=== PATIENT | male | born 1940 | race Caucasian/White ===

== ENCOUNTER → 2024-09-04 20:22 | Outpatient (REF) | payer OTHER, SELFPAY | LOC: MRI 20:22 | PROVIDERS: ATTENDING PHYSICIAN Nurse Practitioner Adult Health; FAMILY PHYSICIAN Internal Medicine | DX: R20.0 Anesthesia of skin (principal); R29.6 Repeated falls; R41.3 Other amnesia; R25.1 Tremor, unspecified; R53.1 Weakness; R90.82 White matter disease, unspecified | CPT/HCPCS: 70553; A9575 ==

== ENCOUNTER 2024-10-02 09:03 | Inpatient (IN) | payer OTHER, SELFPAY ==
[2024-10-01 22:18] VITALS: BP 114/82
[2024-10-01 22:27] VITALS: BP 153/104
--- NOTE | 2024-10-01 22:48 | ED.GENMED ---
History of Present Illness
General
Chief Complaint: Fever
Source: patient and ambulance crew
Time Seen by Provider: 10/01/24 22:23
Nursing documentation reviewed up to this point in time: agreed with
History of Present Illness
History of Present Illness:
84-year-old male brought in by EMS from home after sustaining multiple falls over the last few days. He states that progressively getting weaker and weaker over the last month and falling almost every day.
Past History
Past History
ED Past Medical History: CAD, Cancer (Kidney), CVA, HTN, Hypercholesterolemia and Other (Carotid stenosis, emyphysema)
ED Past Surgical History: Cardiac (Stents X1) and Urological (right nephrectomy)
Social History
Tobacco: Smoker
Alcohol: Occasional
Drug: None
Personal:
Living: with family
Phy Exam
General Physical Exam
General Presentation: mild distress
General age: appears older than age
General Skin: warm and dry
General Habitus: cachetic, elderly and frail
General Mental: alert
General Hydration: dry mucous membranes
ENT Exam
ENT Exam: neck supple and swallowing well
Eye Exam
Eye Exam: PERRL, cornea clear and conjunctiva normal
Cardiovascular Exam
Cardiovascular Exam: no edema, irregularly irregular and systolic murmur
Pulmonary Exam
Pulmonary Exam: generalized wheezing
Cough: coarse cough
Breath Sounds: Wheeze: generalized
Gastrointestinal Exam
Gastrointestinal Exam: normal bowel sounds, non tender, soft, no organomegaly, no pulsatile mass and non distended
Neurological Exam
Neurological Exam: alert, oriented x3, no motor deficits and speech normal
Musculoskeletal Exam
Musculoskeletal Exam: neuro vasc intact and other (Full range of motion to the right hip with minimal tenderness to palpation on compression.)
Skin Exam
Skin Exam: normal color, warm/dry, no rash and no petechia
Psychiatric Exam
Psychiatric Exam: normal mood/affect
Course
Orders/Labs/Results
Orders:
Orders
10/01/24 23:09
Acetaminophen [Tylenol] 650 mg PO NOW STA
10/01/24 23:11
Complete Blood Count/With Diff Urgent
Comprehensive Metabolic Panel Urgent
Lactic Acid Urgent
Lipase Urgent
NT-proBNP Urgent
PTT Urgent
Procalcitonin Urgent
PCT Algorithmm Indication: Sepsis
Prothrombin Time Urgent
Troponin I Urgent
Blood Culture Q30M
MILA Source: Blood/Venous
Specimen Description:
Blood Culture Q30M
MILA Source: Blood/Venous
Specimen Description:
10/01/24 23:55
Urinalysis Reflex To Culture Urgent
Date Specimen was Collected: 10/01/24
Time Specimen was Collected: 23:18
Urine Microscopic Reflex Cult Urgent
Urine Culture Urgent
MILA Source: U
Specimen Description:
Date Specimen was Collected: 10/01/24
Time Specimen was Collected: 23:18
10/02/24 00:00
CR Chest Single View Urgent
Reason For Exam: fever
10/02/24 00:30
CT Head W/o Iv Contrast Urgent
Reason For Exam: fall on anticoagulation
10/02/24 00:35
CT Abd/pelvis W Iv Cont Urgent
Reason For Exam: right flank and hip pain
CefTRIAXone [Rocephin] 1,000 mg IV NOW STA
Abnormal Lab Results
10/01/24 10/01/24
23:11 23:55
WBC 4.3 L 10^3/uL
(4.8-10.8)
RBC 4.27 L 10^6/uL
(4.70-6.10)
Hgb 11.8 L g/dL
(13.0-18.0)
Hct 36.1 L %
(39.0-52.0)
MCHC 32.7 L g/dL
(33.0-37.0)
Absolute Lymphs (auto) 0.3 L 10^3/uL
(1.2-3.4)
Absolute Monos (auto) 0.7 H 10^3/uL
(0.1-0.6)
Neutrophils % 76.5 H %
(42.2-75.2)
Lymphocytes % 6.7 L %
(20.5-51.1)
Monocytes % 15.0 H %
(1.7-9.3)
APTT 35.2 H Sec
(23.4-35.0)
Sodium 133 L mmol/L
(135-145)
Glucose 113 H mg/dl
(70-99)
Calcium 8.3 L mg/dl
(8.4-10.2)
AST 15 L U/L
(17-59)
Total Protein 5.9 L g/dl
(6.3-8.2)
Ur Occult Blood Reflex 1+ A
(Negative)
Urine RBC 3-6 A /HPF
(0-2)
Urine Bacteria (Reflex) Moderate A
(Negative)
Urine Albumin (Reflex) 3+ A
(Neg - Trace)
10/01/24 23:11
10/01/24 23:11
Vital Signs
Initial and Last Documented VS:
Initial Vital Signs
Temp Pulse Resp BP Pulse Ox
100.4 F H 88 24 114/82 96
10/01/24 22:18 10/01/24 22:18 10/01/24 22:18 10/01/24 22:18 10/01/24 22:18
Last Documented Vital Signs
Temp Pulse Resp BP Pulse Ox
99.2 F 82 21 135/72 95
10/02/24 01:43 10/02/24 02:45 10/02/24 02:45 10/02/24 00:00 10/01/24 23:30
*Radiology
Radiology exam reviewed: radiology read reviewed
*Pulse Oximetry
Patient hypoxic: no
*Umbrella Finisher Interpretation
Interpretation: abnormal
Heart Rate: 86
Rhythm: a-fib
*Critical Care Note
Total Time (30-74mins, 75-104mins- exclusive of procedures): Not Applicable
Data Reviewed
Review of Other/Old Records Reveals: Labs, Records, Progress Notes and Discharge Summary
Source: patient
Update Note
Update Note:
CT HEAD
IMPRESSION:
No acute hemorrhage, herniation, or hydrocephalus. Left parietal encephalomalacia. Moderate periventricular hypodensities, likely the sequela of small vessel ischemic disease.
No calvarial fracture.
The visualized paranasal sinuses and mastoid air cells are clear.
CT ABDOMEN/PELVIS WITH CONTRAST
IMPRESSION:
1. No acute abnormality within the abdomen or pelvis.
2. No bowel obstruction. Normal gallbladder and appendix
3. Mildly displaced left lateral 9th rib fracture.
Incidentals:
-Moderate stool burden
- No obstructive uropathy. Absent right kidney. Apparent enhancement within the proximal ureter, may be vascular, but recommend correlation with urinalysis as urothelial malignancy could appear similarly.
- No hepatic or pancreatic mass.
- No abdominal aortic aneurysm. Narrowing of the proximal celiac artery with poststenotic dilation. Narrowing of the proximal SMA.
- No acute abnormality within the visualized lungs.
- No acute abnormality within the visualized soft tissues.
ED Attending Note
-
Portions of this chart may have been created with voice recognition software.� Occasional wrong word or��sound alike� substitutions may have occurred due to the inherent limitations of voice recognition software.
Discharge Plan
Departure
Patient Disposition: Admit
Date of Disposition: 10/02/24
Time of Disposition: 00:59
Admit to: Telemetry
Presentation/result/management discussed w/ accepting MD/DO: Hospitalist
Discharge Problem:
Frequent falls, Acute UTI, Weakness, Acute flank pain, Fracture of rib
Prescriptions:
No Action
aspirin 81 MG tablet,delayed release (DR/EC)
81 mg PO HS
sildenafil [Viagra] 100 MG tablet
100 mg PO PRN PRN (Reason: sexual activity)
simvastatin 20 MG tablet
20 mg PO HS
cilostazol 100 MG tablet
100 mg PO BID@0000,1200
metoprolol succinate 25 MG tablet extended release 24 hr
25 mg PO HS
Pepcid Complete 1 EACH tablet,chewable
1 ea PO HS
Referrals:
Denton Marcelino MD [Family Provider] -
Interventions
Interventions:
*Risk Screen - Suicide Last Done: 10/01/24 22:18
*General Assessment Last Done: 10/01/24 22:18
*Neglect/Abuse Screening Last Done: 10/01/24 22:18
ED- Fall Risk Assessment Last Done: 10/01/24 23:09
*ED COVID-19 Vaccine History Last Done: 10/01/24 23:08
ED-Musculoskeletal Assessment Last Done: 10/02/24 01:43
ED- Neurological Assessment Last Done: 10/01/24 23:09
ED-Skin Assessment Last Done: 10/02/24 01:43
Discharge Date and Time
Print Language: TAJIK
[2024-10-01 23:07] VITALS: BMI 15.8
[2024-10-01 23:20] LABS: % Basophils 0.9 % (0-2); % Eosinophils 0.7 % (0-6); % Immature Granulocytes 0.2 % (0-0.5); % Lymphocytes 6.7 % (20.5-51.1); % Neutrophils 76.5 % (42.2-75.2); Absolute Lymphocytes 0.3 10^3/uL (1.2-3.4); Absolute Monocytes 0.7 10^3/uL (0.1-0.6); Absolute Neutrophils 3.3 10^3/uL (1.4-6.5); Hematocrit 36.1 % (39.0-52.0); Hemoglobin 11.8 g/dL (13.0-18.0); Mean Corp Hgb Conc. 32.7 g/dL (33.0-37.0); Mean Corpuscular Hgb 27.6 pg (27.0-31.0); Mean Corpuscular Volume 84.5 fL (80.0-94.0); Mean Platelet Volume 9.3 fL (7.4-10.4); Nucleated Red Blood Cells % 0 % (-); Platelet Count 153 10^3/uL (130-400); Red Blood Cell Count 4.27 10^6/uL (4.70-6.10); Red Cell Dist. Width 14.3 % (11.5-14.5); White Blood Cell Count 4.3 10^3/uL (4.8-10.8)
[2024-10-01] MEDS: TYLENOL 650 MG PO (23:49)
[2024-10-01 23:52] LABS: Lactic Acid 1.3 mmol/L (0.7-2.0)
[2024-10-01 23:53] LABS: ALT (SGPT) < 10 U/L (0-50); AST (SGOT) 15 U/L (17-59); Albumin 3.5 g/dl (3.5-5.0); Alkaline Phosphatase 106 U/L (38-126); Blood Urea Nitrogen 11 mg/dl (9-20); Calcium 8.3 mg/dl (8.4-10.2); Carbon Dioxide 26 mmol/L (22-30); Chloride 100 mmol/L (98-107); Glucose 113 mg/dl (70-99); Lipase 93 U/L (23-300); Potassium 4.2 mmol/L (3.5-5.1); Sodium 133 mmol/L (135-145); Total Protein 5.9 g/dl (6.3-8.2)
[2024-10-02] VITALS (10 sets, daily range): BP systolic 103–166; BP diastolic 60–107; BMI 15.8; BMI 15.2
[2024-10-02 00:02] LABS: INR 1.04; NT-proBNP 2620 pg/ml; PT 14.1 Sec (11.4-14.6); Troponin I < 0.012 ng/ml
[2024-10-02 00:03] LABS: APTT 35.2 Sec (23.4-35.0); Estimated Creatinine Clearance 53 ml/min; eGFR > 60.00
[2024-10-02 00:04] LABS: Urine Albumin 3+ (Neg - Trace); Urine Bilirubin Negative (Negative); Urine Character Clear (Clear); Urine Color Yellow; Urine Glucose Negative (Negative); Urine Ketone Negative (Negative); Urine Leukocyte Negative (Negative); Urine Nitrite Negative (Negative); Urine Occult Blood 1+ (Negative); Urine Specific Gravity 1.025 (<1.030); Urine Urobilinogen Negative (Neg - 1+)
[2024-10-02 00:22] LABS: Urine Mucus Few
[2024-10-02 00:24] LABS: Urine Bacteria Moderate (Negative)
[2024-10-02 00:27] LABS: Procalcitonin < 0.05 ng/ml (0.0-0.25)
[2024-10-02] MEDS: ROCEPHIN 1000 MG IV (01:39)
--- NOTE | 2024-10-02 04:11 | HPS.HSE ---
Family Physician
-
Family Physician: Tejinder Mareclino
Chief Complaint
-
Weakness and falls
History of Present Illness
This is a 84-year-old with past medical history significant for CAD status post stents, history of proximal atrial fibrillation in the past, history of CVA, hypertension, peripheral vascular disease presenting to the emergency department from home
with falls.
Patient is a fairly poor historian. He did endorse having falls for about a month. He states that he has been weak for the last 1 week. He states his had about 4 falls in the last 1 week. He says he is just unable to ambulate due to weakness in
his legs and he has to crawl to get around. He endorsed a cough initially which he says has been going on for 1 week upon further questioning he states it has been chronic. He denies fevers or chills at home. He has no known sick contacts. He
denies any urinary symptoms including dysuria, frequency or urgency no hematuria or incontinence. He denies lightheadedness or dizziness. He denies chest pain palpitations shortness of breath or dyspnea on exertion. Patient denies any changes in
appetite and states he has been tolerating his p.o. normally. He denies any acute changes in medications.
In the emergency department he had a Tmax of 100.4, was satting 96% on room air. Blood pressure was 135/32 with a pulse of 73. CBC was unremarkable. Electrolytes BUN/creatinine were also unremarkable. He had a chest x-ray which shows a possible
left upper lobe infiltrate. CT of the abdomen and pelvis was mostly negative showing a mildly displaced lateral wall ninth rib fracture. Procalcitonin test was negative. UA was equivocal with bacteria but also squamous cells and negative
leukocyte esterase and negative nitrite.
Medical History
Past Medical History
Past Medical History: Reports Arrhythmia (Proximal atrial fibrillation), CAD, Cancer (kidney Ca s/p R nephrectomy), CVA, HTN, Hypercholesterolemia and Other (Carotid artery stenosis, peripheral vascular disease)
Past Surgical History: Reports Urological (Right nephrectomy)
Social History
Tobacco: Smoker
Alcohol: None
Drug: None
Personal:
Living: With Family
Employment: Retired
Family History
Family History: Not pertinent
Allergies / Home Medications
Allergies reflects when Allergies were last updated in [facility].
Home Medications with original date entered in [facility] [facility]
Allergy/Medication List:
Allergies
Allergy/AdvReac Type Severity Reaction Status Date / Time
No Known Allergies Allergy Verified 10/01/24 22:18
Home Medications
aspirin 81 mg tablet,delayed release 81 mg PO HS
simvastatin 20 mg tablet 20 mg PO HS
cilostazol 100 mg tablet 100 mg PO BID@0000,1200
metoprolol succinate 50 mg tablet,extended release 24 hr 50 mg PO BID
Review of Systems
-
History Source: Patient
Constitutional: Reports No Symptoms
EENT: Reports No Symptoms
Respiratory: Reports Cough
Cardiac: Reports No Symptoms
Abdomen/GI: Reports No Symptoms
: Reports No Symptoms
Musculoskeletal: Reports No Symptoms
Skin: Reports No Symptoms
Neurological: Reports Weakness
Endocrine: Reports No Symptoms
Hematologic/Lymphatic: Reports No Symptoms
Psych: Reports No Symptoms
Physical Exam
Vital Signs
Vital Signs
Temp Pulse Resp BP Pulse Ox
99.2 F 73 19 135/72 95
10/02/24 01:43 10/02/24 03:47 10/02/24 03:00 10/02/24 00:00 10/01/24 23:30
Physical Exam
General: Well Developed, No Apparent Distress and Comfortable
HEENT: NormoCephalic, Anicteric, Atraumatic and PERRLA
Respiratory: Clear and Decreased Breath Sounds
Cardiac: S1/S2 and Regular Rhythm
Breast: Deferred by me
GI: Soft, Non Tender, Non Distended and Normal Bowel Sounds
Rectal: Deferred by Provider
Genito-urinary: Deferred by me
Musculoskeletal: No Clubbing, No Cyanosis and No Edema
Skin: Warm
Neuro: Alert, Oriented (oriented to person, but did not recall place, year or month) and Nonfocal/grossly intact
Psych: Calm
Laboratory Results
-
10/01/24 23:11
10/01/24 23:11
Laboratory Results
PT 14.1 Sec (11.4-14.6) 10/01/24 23:11
INR 1.04 10/01/24 23:11
APTT 35.2 Sec (23.4-35.0) H 10/01/24 23:11
Lactic Acid 1.3 mmol/L (0.7-2.0) 10/01/24 23:11
Total Bilirubin 1.0 mg/dl (0.2-1.3) 10/01/24 23:11
AST 15 U/L (17-59) L 10/01/24 23:11
ALT < 10 U/L (0-50) 10/01/24 23:11
Alkaline Phosphatase 106 U/L (38-126) 10/01/24 23:11
Troponin I < 0.012 ng/ml 10/01/24 23:11
Troponin I Cancelled 10/01/24 23:11
Lipase 93 U/L (23-300) 10/01/24 23:11
Data Reviewed
-
Diagnostic Radiology: Image Personally Visualized and interpreted
CT Scan: Report Reviewed by me
Lab Data: Labs Reviewed by me
Old Records: Reviewed
Impression/Plan
-
IMPRESSION:
84 y.o here with generalized weakness after 1 week of increased falls at home and overall having had falls for about a month. Testing in ED is unrevealing of etiology. Possible PNA with cough (though chronic), fever and a upper lobe opacity
however procal negative. U/A is equivocal and not c/w acute cystitis. Labs do not show significant dehydration. Non-focal neuro exam and negative head CT. CT a/p showed a r 9th rib mildly displaced rib fracture and some narrowed celiac and sma
vessels.
PLAN:
1. PNA - Suspected pneumonia based on fever and xray
- admit to med/surg
- ceftriaxone/doxycycline for now
- blood and urine cultures sent
- CT chest w/o contrast to eval pna further
- no wheezing or increased wob
- prn nebs given likely COPD and smoking history
2. UTI - Unlikely
- urine cultures sent
- abx as above
3. Weakness
- check influenza/covid
- check cpk
4. Falls and rib fracture - mildly displaced left 9th rib fracture. Unclear acuity.
- supportive measures and pain control
- CT chest as above
- orthostatics
- IV fluids
- PT eval
DVT PPX - lovenox sq
Code status - full code
[2024-10-02] MEDS: LR 1000 IV ×2 (05:44→20:17)
[2024-10-02 06:00] LABS: Hematocrit 35.7 % (39.0-52.0); Hemoglobin 11.6 g/dL (13.0-18.0); Mean Corp Hgb Conc. 32.5 g/dL (33.0-37.0); Mean Corpuscular Hgb 27.5 pg (27.0-31.0); Mean Corpuscular Volume 84.6 fL (80.0-94.0); Mean Platelet Volume 9.7 fL (7.4-10.4); Platelet Count 158 10^3/uL (130-400); Red Blood Cell Count 4.22 10^6/uL (4.70-6.10); Red Cell Dist. Width 14.2 % (11.5-14.5); White Blood Cell Count 3.8 10^3/uL (4.8-10.8)
[2024-10-02 06:21] LABS: COVID-19 Antigen Positive (Negative)
[2024-10-02 06:22] LABS: Blood Urea Nitrogen 12 mg/dl (9-20); Calcium 8.1 mg/dl (8.4-10.2); Carbon Dioxide 27 mmol/L (22-30); Chloride 101 mmol/L (98-107); Creatine Phosphokinase 139 U/L (55-170); Estimated Creatinine Clearance 47 ml/min; Glucose 98 mg/dl (70-99); Potassium 4.1 mmol/L (3.5-5.1); Sodium 135 mmol/L (135-145); eGFR > 60.00
[2024-10-02] MEDS: DUONEB 3 ML INH ×3 (08:23→19:55)
[2024-10-02] MEDS: MIRALAX PO (09:07)
[2024-10-02] MEDS: SENOKOT-S PO ×2 (09:32→17:30)
[2024-10-02] MEDS: VIBRAMYCIN 100 MG PO (09:32)
--- NOTE | 2024-10-02 11:17 | EDRN ---
Pt agitated, verbally aggressive w staff stating 'This place is a shelter, I want out now!'. Pt trying to get OOB, taking cardiac leads off and pulling at IV. Pt will not keep his arm straight to allow IV fluids to be administered, pt refusing new IV
placement for IV fluids. Junito Omalley at bedside, states okay to hold IVF. Pt wants medication to make him sleep, pt reoriented to the situation. Pts called and I spoke w her regarding pts care and condition, pts states at times he gets
like this. Pts spoke w pt over the phone. Pt now calm.
--- NOTE | 2024-10-02 13:58 | W.PN.UPDATE ---
Update Note
Progress Note Update
Seen and examined independent of overnight physician
Patient was agitated earlier as he was tired from lack of sleep overnight
States of intermittent coughing. No productive cough.
States of weakness
States of heavy history of smoking
General: disshelved, chronically ill appearing
HEENT: NormoCephalic, Anicteric, Atraumatic and PERRLA
Respiratory: Decreased Breath Sounds
Cardiac: S1/S2 and Regular Rhythm
Breast: Deferred by me
GI: Soft, Non Tender, Non Distended and Normal Bowel Sounds
Rectal: Deferred by Provider
Genito-urinary: Deferred by me
Musculoskeletal: No Clubbing, No Cyanosis and No Edema
Skin: Warm
Neuro: Alert, Oriented (oriented to person, but did not recall place, year or month) and Nonfocal/grossly intact
Psych: Calm after prolonged discussion
IMPRESSION:
84 y.o here with generalized weakness after 1 week of increased falls at home and overall having had falls for about a month. Testing in ED is unrevealing of etiology. Possible PNA with cough (though chronic), fever and a upper lobe opacity
however procal negative. U/A is equivocal and not c/w acute cystitis. Labs do not show significant dehydration. Non-focal neuro exam and negative head CT. CT a/p showed a r 9th rib mildly displaced rib fracture and some narrowed celiac and sma
vessels.
PLAN:
Acute COVID-19 infection
-Pro-Antonio noted. Discontinue antibiotics.
-Symptomatic management. Not requiring oxygen no need for steroids
-Unclear timeline and does hold off on Paxlovid
-Follow-up on the urine and blood culture data
UTI - Unlikely
- urine cultures sent
-Follow-up on the culture data.
Weakness secondary to COVID-19 infection
-IV fluids for now. PT OT.
History of severe tobacco abuse
Left upper lobe lung lesion
-Pulmonary evaluation
Toxic metabolic encephalopathy likely delirium versus underlying cognitive impairment
-Patient calm down. Risperdal as needed
-Melatonin at bedtime.
Falls and rib fracture - mildly displaced left 9th rib fracture. Unclear acuity.
- supportive measures and pain control
- CT chest as above
- orthostatics
- IV fluids
- PT eval
Atrial fibrillation unknown chronicity
-Looking to record seems refused anticoagulation in the past
-Not on any rate control agents
Peripheral vascular disease
History of stroke
Left carotid stenosis
Coronary artery disease
DVT PPX - lovenox sq
Code status - full code
Awaiting home medication reconciliation
--- NOTE | 2024-10-02 15:58 | CON.PUL ---
Consultation
Consultation Request
Date/Time Consultation Requested: 10/02/2024
Date/Time Consultation Performed: 10/02/2024
Requesting Provider: Dr. Omalley
Performing Provider: Dr. Ángel Wolf
Reason for Consultation: lung mass
Medical History
-
History of Present Illness:
84-year-old man with past medical history significant for coronary artery disease, prior stents, paroxysmal atrial fibrillation, history of CVA, hypertension, peripheral vascular disease presented to the emergency room after falling.
Patient is a poor historian.
Apparently has been falling at home several times for the last month.
Has been more weak over the last week.
Has not been able to ambulate due to weakness in his legs and he has to crawl around.
Reports history of chronic coughing.
Denies fevers, chills or night sweats. Denies hemoptysis.
He was found to have low-grade fever in the emergency room. Not hypoxemic. 96% on room air.
Found to have COVID-19 infection.
-
CT abdomen pelvis negative.
Chest x-ray with possible left upper lobe infiltrate. Negative procalcitonin.
There is evidence for mildly displaced lateral wall ninth rib fracture.
CT chest demonstrated left upper lobe lung mass. I was consulted for evaluation of this.
Past Medical History
Past Medical History: Other (See assessment and plan)
Social History
Tobacco: Smoker
Alcohol: None
Drug: None
Personal:
Living: With Family
Employment: Retired
Family History
Family History: Reviewed & Not Pertinent
Allergies / Home Medications
Allergies
Allergy/AdvReac Type Severity Reaction Status Date / Time
No Known Allergies Allergy Verified 10/01/24 22:18
Home Medications
�Medication �Instructions �Recorded �Confirmed �Last Taken �Type
aspirin 81 mg tablet,delayed 81 mg PO HS 09/30/12 10/02/24 05/02/22 History
release
sildenafil 100 mg tablet (Viagra) 100 mg PO PRN PRN sexual activity 05/02/15 10/02/24 2 Weeks Ago History
~07/29/19
simvastatin 20 mg tablet 20 mg PO HS 05/02/15 10/02/24 05/02/22 History
cilostazol 100 mg tablet 100 mg PO BID 08/12/19 10/02/24 05/02/22 History
famotidine 20 mg tablet (Pepcid) 20 mg PO DAILY 10/02/24 10/02/24 Unknown History
metoprolol succinate 50 mg 50 mg PO BID 10/02/24 10/02/24 Unknown History
tablet,extended release 24 hr
(Toprol XL)
Review of Systems
-
History Source: Patient
All other systems: Negative unless noted
Vitals / Labs / Diagnostic Testing
Vital Signs
Temp Pulse Resp BP Pulse Ox
99.3 F 109 22 150/84 97
10/02/24 14:55 10/02/24 12:45 10/02/24 12:45 10/02/24 12:00 10/02/24 10:50
Lab Data
10/02/24 05:26
10/02/24 05:26
Laboratory Results
10/01/24
23:11
PT 14.1
INR 1.04
APTT 35.2 H
Microbiology
10/02/24 05:26 Nasal Swab Influenza Types A & B (JEROME) - Final
Negative for Influenza A & B, NAAT
Negative results must be combined with clinical observations
and patient history.
Nucleic Acid Amplification test (NAAT)performed on the
[employer] platform.
Diagnostic Testing:
Physical Exam
-
HEENT: Normocephalic
Cardiovascular: S1/S2
Respiratory: Non-Labored Respirations
GI: Non Distended
Neurology: Awake, Alert and No Motor Deficits
Skin: Warm
General: Comfortable
Assessment
-
84-year-old man smoker, history of coronary artery disease, peripheral vascular disease, admitted with multiple falling. Found to have minimal low-grade fever in the emergency room. Chest x-ray with possible left upper lobe infiltrate. Found to
have COVID-19 infection. Subsequent evaluation included CT of the chest that demonstrated lung mass 3 to 4 cm, pleural-based.
Abnormal CT chest: 3 to 4 cm subpleural opacity on the left upper lobe possibly extending to the superior segment of the left upper lobe new since 2021. Additional tiny/small parenchymal nodular opacities bilaterally, most likely malignant. Cannot
rule out infectious.
Mild to moderate emphysema with bronchial thickening-no evidence for acute exacerbation of COPD
Left seventh and eighth rib fractures.
Acute COVID-19 infection
Conditions present prior admission:
Ambulatory dysfunction
Paroxysmal atrial fibrillation
Coronary artery disease with stents
History of kidney cancer status post right nephrectomy
History of CVA
Hypertension
Memory impairment
Chronic insomnia
Urine incontinence
Hypercholesterolemia
Carotid artery stenosis/peripheral vascular disease.
Smoker
Assessment and plan:
CT of the chest reviewed, showed lung mass 3 to 4 cm left upper lobe, pleural-based. Is new compared to 06/13/2022. No evidence for mediastinal lymphadenopathy or pleural effusion.
Suggestive of malignancy.
CT abdomen pelvis : Absent right kidney-status post nephrectomy history of renal cell carcinoma. Thickening of the left adrenal gland. No evidence for metastatic disease.
-
Based on his history, [facility] records reviewed, patient has memory impairment, ambulatory dysfunction, frequent falls, likely failure to thrive(documented weight loss since 2021 about 5 kg per records.
Patient is cachectic
States that he has lost about 40 pounds-he lives with his who is also sickly.
-
Do not think that this patient will be a great candidate for any type of therapy.
I would recommend against biopsy at this point just based on his current functional status.
-
If a biopsy is necessary would recommend percutaneous approach with interventional radiology. This could be discussed in the outpatient setting if his clinical condition improved.
-
COVID-19 infection-agree with symptomatic management
Antibiotics not necessary
Antitussives
Mucolytic's
-
Patient does have moderate emphysema on CAT scan-likely COPD.
Does not appear in distress at rest
Not bronchospastic
Usually not on inhalers
Okay to continue bronchodilators via nebulizer for now to aid with secretion clearance.
No indication for inhaler
Per [facility] records does not follow-up with pulmonary.
-
It is noted in the outpatient record from primary care the patient had cognitive impairment. Possibly also has some degree of toxic metabolic encephalopathy.
-
Rib fracture possibly from prior following.
Cannot rule out metastatic.
-
We can rediscuss in the outpatient setting after he recovers from Covid and completes 10 day isolation period, information will be left in the chart for follow-up.
I did discuss with patient and he seemed to understand. He agreed that he is not in any condition to get any biopsies or therapies at this point.
I tried to call but there was no answer.
I cannot find phone numbers for his daughter.
I did discuss the case with Dr. Omalley and he agrees. He will call us back over the weekend if there is any further discussions that are needed from our perspective with the family.
Otherwise I will leave information in the chart for follow-up in the next 2 to 3 weeks in our office.
-
Please call with questions
[2024-10-02] MEDS: DUONEB INH (16:07)
[2024-10-02 16:12] LABS: TSH 0.55 uIU/ml (0.47-4.68)
[2024-10-02] MEDS: LOVENOX SC (17:30)
[2024-10-02] MEDS: TOPROL XL 50 MG PO (20:19)
[2024-10-02] MEDS: ASPIR LOW (ENTERIC COATED) 81 MG PO (21:15)
[2024-10-02] MEDS: LIPITOR 10 MG PO (21:15)
[2024-10-02] MEDS: RISPERDAL 0.25 MG PO (21:15)
[2024-10-02] MEDS: MELATONIN 5 MG PO (21:15)
[2024-10-03] MEDS: PLETAL 100 MG PO ×2 (00:04→23:04)
--- NOTE | 2024-10-03 06:18 | PTCARENOTE ---
Patient is agitated and attempting to get out of bed. Patient states 'this place is a intermediate and I am leaving today.' Patient can not stand without assistance. Bed alarm alerted staff that patient was getting out of bed. Patient is pulling at IV and
is refusing to have the fluids continue. Fluids placed on hold for now. Will pass along to dayshift nurse.
[2024-10-03 07:40] VITALS: BP 145/63
[2024-10-03] MEDS: LR IV (08:27)
[2024-10-03] MEDS: MIRALAX PO (08:40)
[2024-10-03] MEDS: PEPCID PO (08:40)
[2024-10-03] MEDS: TOPROL XL PO (08:41)
[2024-10-03] MEDS: SENOKOT-S PO ×2 (08:41→16:21)
[2024-10-03 09:59] VITALS: BMI 15.2
--- NOTE | 2024-10-03 12:23 | CON.MD ---
Consultation - Medical
-
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 He presented at the ED on 10/01/24 due to progressive weakness and several falls (he only admits to one fall from slipping
on the ice). Has been found to be Covid + and CT of the chest reveals likely malignancy in addition to emphysema. Has history of CAD with stents, renal cancer, CVA, hypertension, hypercholesterolemia, carotid stenosis. CT of head shows evidence
of small vessel ischemic disease but no masses or acute findings.
He reports not eating due to no appetite for the past week, although he does not seem to be aware of the considerable weight loss (50 lbs.) nor be able to explain this. He now does not deny he has Covid, but feels he got it in the hospital
(apparently had been more paranoid about this with conspiracy theory thinking). He did not eat breakfast. Has refused medications and IV fluids. He says he does not trust [facility] but if at home would take his medications and does
trust [facility].
He has a very remote history of psychiatric treatment which he attributes to being raised in orphanages in [place]. No details provided. At home is not taking any psychiatric medications.
Lives in [place], [place]. Has six children and 20 grandchildren all in the area. Good relationship with who is supposed to be visiting later and bringing him food. Worked in [employer] -- retired. Smoker.
MSE: Tall, elderly very thin man with white hair who has dyspnea. Alert and oriented to place and date, but not year. Gave his age in the late seventies. Speech is well-articulated without word-finding problems or dysarthria. Not depressed; no
suggestion of suicidal or homicidal ideation. Appears intelligent. 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 Personable and polite. Not agitated at this time. As above, does not 'trust' [facility] and
will not take medications here or allow labs. Said he would take medication if at home and would have preferred to be at [facility]. I did not know about lung mass when I interviewed him and he is likely not aware of this finding. No evidence
of hallucinations. Only area in which he seems delusional is about his diagnosis and treatment at .
On admission: Na 133, Ca 8.2, protein 5.9 (all low); T100.4, P 88, RR 24, BP 114/ 82 Ox 96%
Was started on risperidone 0.25 mg. which he did take last night. Not taking medications today.
Dx: Vascular Dementia with psyhotic symptoms
Rule-out toxic metabolic syndrome
Rule-out paraneoplastic syndrome
Plan: Will increase risperidone to 0.5 mg. If refused, can be given as liquid or can be switched to haloperidol (liquid, iv or IM). I will also order risperidone 0.5 mg. PRN. The determination of his competence will depend on being presented
with his full diagnostic picture and need for work-up and his capacity to appreciate this and make well-considered decision.
Psychiatry will follow.
[2024-10-03] MEDS: PLETAL PO (12:36)
--- NOTE | 2024-10-03 12:38 | PTCARENOTE ---
Patient refusing all medications. Patient informed of importance of taking pills and IV antibiotics, however, patient still refusing. Patient states we are holding him hostage against his will, he does not trust our hospital and will not take
anything from us. Psych MD assessed patient and Hospitalist made aware.
--- NOTE | 2024-10-03 12:43 | PTCARENOTE ---
Patient pulled out IV and is refusing lab draws. aware.
--- NOTE | 2024-10-03 13:39 | CON.ID ---
Consultation
-
Date/Time Consultation Requested: 10/03/24 11:04
Date/Time Consultation Performed: 10/03/24 13:40
Requesting Provider: Dr Omalley
Performing Provider: Dr Maier
Reason for Consultation: acinetobacter bacteremia
Chief Complaint / Past History
Chief Complaint
Weakness and falls
History of Present Illness
Mr Valencia is an 84 year old male with a history of PAF, CVA, cachexia presenting here for weakness/falls for about 1 month - unable to walk - crawling to get around. Notes chronic cough, no fevers, chils, sick contacts, dysuria, lightnessnessness,
change in appetite. No wounds or breaks in the skin or lines in place prior to arrival.
In the emergency department he had a Tmax of 100.4, was sating 96% on room air. Blood pressure was 135/32 with a pulse of 73. sating 100% on room air. WBC 4.2 then now 3.8, hgb 11.6, plt 158L shift noted. Na 133, cr 0.8, t bili 1.0, ast 15, alt
<10, alk phos 106, He had a chest x-ray which shows a possible left upper lobe infiltrate. CT of the abdomen and pelvis was mostly negative showing a mildly displaced lateral wall ninth rib fracture. CT chest empysema, 3-4 cm subpleural opacity,
Procalcitonin was negative. UA was equivocal with bacteria but also squamous cells and negative leukocyte esterase and negative nitrite. Covid ag positive
Past History
Additional Past Medical History:
Proximal atrial fibrillation), CAD, Cancer (kidney Ca s/p R nephrectomy), CVA, HTN, Hypercholesterolemia and Other (Carotid artery stenosis, peripheral vascular disease)
Additional Past Surgical History:
(Right nephrectomy)
Allergy History:
No Known Allergies Allergy (Verified 10/01/24 22:18)
Medications Reviewed: Yes
Social History
Tobacco: Smoker
Alcohol: None
Drug: None
Family History
Family History: Not Pertinent
Review of Systems
Review of Systems
General: Negative Fever or Chills
All systems: All other systems were reviewed and were negative
Vital Signs
Temp Pulse Resp BP Pulse Ox
97.9 F 67 17 145/63 96
10/03/24 07:40 10/03/24 07:40 10/03/24 07:40 10/03/24 07:40 10/03/24 07:40
Physical Exam
Physical Exam
Constitutional: No Acute Distress
Cardiovascular: Regular Rate and S1/S2; Negative Murmur or Rub
Pulmonary: Clear and Symmetric; Negative Wheezes, Rales or Rhonchi
Gastrointestinal: Soft, Non Tender, Non Distended and Normal Bowel Sounds
Skin: Warm and Dry; Negative Rash or Jaundice
Lab / Diagnostic Study Results
Abs Immat Gran (auto) 0.0 10^3/uL (0-0.05) 10/01/24 23:11
Absolute Neuts (auto) 3.3 10^3/uL (1.4-6.5) 10/01/24 23:11
Absolute Lymphs (auto) 0.3 10^3/uL (1.2-3.4) L 10/01/24 23:11
Absolute Monos (auto) 0.7 10^3/uL (0.1-0.6) H 10/01/24 23:11
Absolute Basos (auto) 0.0 10^3/uL (0-0.2) 10/01/24 23:11
Immature Gran % 0.2 % (0-0.5) 10/01/24 23:11
Neutrophils % 76.5 % (42.2-75.2) H 10/01/24 23:11
Lymphocytes % 6.7 % (20.5-51.1) L 10/01/24 23:11
Monocytes % 15.0 % (1.7-9.3) H 10/01/24 23:11
Eosinophils % 0.7 % (0-6) 10/01/24 23:11
Basophils % 0.9 % (0-2) 10/01/24 23:11
PT 14.1 Sec (11.4-14.6) 10/01/24 23:11
INR 1.04 10/01/24 23:11
Lactic Acid 1.3 mmol/L (0.7-2.0) 10/01/24 23:11
Procalcitonin < 0.05 ng/ml (0.0-0.25) 10/01/24 23:11
Ur Squamous Epith Cells 11-15 /LPF (Few) 10/01/24 23:55
Microbiology Results
Micro:
10/01/24 23:11 Blood Culture - Preliminary
Blood/Venous Acinetobacter Species
Gram Stain - Preliminary
10/01/24 23:55 Urine Culture - Final
Urine NO GROWTH
10/01/24 23:11 Blood Culture - Preliminary
Blood/Venous No Growth in 24 hours- Final report to follow
10/02/24 05:26 Influenza Types A & B (JEROME) - Final
Nasal Swab Negative for Influenza A & B, NAAT
Negative results must be combined with clinical observations
and patient history.
Nucleic Acid Amplification test (NAAT)performed on the
[employer] platform.
Assessment / Plan
Covid Infection - mild saturating 100% on room air
Acinetobacter Bacteremia
Cachexia (profound)/FTT
- repeat blood cultures x2
- after blood cultures then start meropenem
- follow for final ID and sensi on the acinetobacter
- sometimes associated with pneumonia, urine culture negative, no lines present on arrival
- agree with treating mild covid symptomatically
medium term prognosis guarded with profound cachexia, weakness and suspected malignancy. Pulmonary service planning outpatient workup.
--- NOTE | 2024-10-03 14:03 | W.PN.HOSP.TC ---
Addendum entered and electronically signed by Junito Omalley MD 10/03/24 15:02:
Called daughters Esmer and her phone number is [phone]-no response.
Continue to await for family to come in for further discussion
Once again, pt continue to refuse medical care and antibiotics.
Original Note:
Today's Communication/Plan
-
Risperidal qhs and prn
Im zyprexa if needed
IV abx
PT/OT
Long-term prognosis poor
Awaiting to hear back from family
Assessment / Plan
Assessment / Plan
General: disshelved, chronically ill appearing
HEENT: NormoCephalic, Anicteric, Atraumatic and PERRLA
Respiratory: Decreased Breath Sounds
Cardiac: S1/S2 and Regular Rhythm
Breast: Deferred by me
GI: Soft, Non Tender, Non Distended and Normal Bowel Sounds
Rectal: Deferred by Provider
Genito-urinary: Deferred by me
Musculoskeletal: No Clubbing, No Cyanosis and No Edema
Skin: Warm
Neuro: Alert, Oriented (oriented to person, but did not recall place, year or month) and Nonfocal/grossly intact
Psych: Calm after prolonged discussion
IMPRESSION:
84 y.o here with generalized weakness after 1 week of increased falls at home and overall having had falls for about a month. Testing in ED is unrevealing of etiology. Possible PNA with cough (though chronic), fever and a upper lobe opacity
however procal negative. U/A is equivocal and not c/w acute cystitis. Labs do not show significant dehydration. Non-focal neuro exam and negative head CT. CT a/p showed a r 9th rib mildly displaced rib fracture and some narrowed celiac and sma
vessels.
PLAN:
Acute COVID-19 infection
-Pro-Antonio noted. Discontinue antibiotics.
-Symptomatic management. Not requiring oxygen no need for steroids
-Unclear timeline and does hold off on Paxlovid
-Follow-up on the urine and blood culture data
Gram-negative bacteremia
-Started on IV antibiotics
-Unclear source of infection
-ID evaluation
Weakness secondary to COVID-19 infection
-IV fluids for now. PT OT.
History of severe tobacco abuse
Left upper lobe lung lesion likely malignancy
-Pulmonary evaluation and recommend to monitor for now. Patient with significant weight loss recently. If patient agrees then can do outpatient biopsy and follow-up
Toxic metabolic encephalopathy likely delirium versus underlying cognitive impairment worsening
Severe agitation
-Patient calm down. Risperdal as needed
-Melatonin at bedtime. Antipsychotropic meds per psychiatry
-Psych consulted
Falls and rib fracture - mildly displaced left 9th rib fracture. Unclear acuity.
- supportive measures and pain control
- CT chest as above
- orthostatics
- IV fluids
- PT eval
Atrial fibrillation unknown chronicity
-Looking to record seems refused anticoagulation in the past
-Not on any rate control agents
Peripheral vascular disease
History of stroke
Left carotid stenosis
Coronary artery disease
DVT PPX - lovenox sq
Code status - full code
Called spouse at both listed numbers and left voicemail to call back as soon as possible. Awaiting to hear back.
Discussed with psychiatry
Counseled patient in detail regards for receiving antibiotic is high risk of decompensation if refusing antibiotics with bacteremia leading to septic shock and . Patient stated he is here with falls and should be treated for falls only. Got
agitated upon further questioning. Awaiting for spouse and other family members to discuss with patient.
Anticipated Discharge: > 48 hours
Subjective/Interval History
-
Date of Service: October 03, 2024
Patient seen and examined overnight events noted
Patient continues to remain agitated
Verbally abusive at times
Refusing medical care
Refusing antibiotics and other medications
Refusing blood work
Objective Data
-
Vital Signs:
Vital Signs
Temp Pulse Resp BP Pulse Ox
97.9 F 67 17 145/63 96
10/03/24 07:40 10/03/24 07:40 10/03/24 07:40 10/03/24 07:40 10/03/24 07:40
I&O
10/02/24 10/03/24 10/04/24
06:59 06:59 06:59
Intake Total 400 / 400
Output Total 650 / 650
Balance -250 / -250
Data Reviewed
-
Total Time Spent with Patient (in minutes): 59
[2024-10-03] MEDS: TYLENOL 650 MG PO ×2 (14:29→21:30)
[2024-10-03 15:05] VITALS: BP 163/64
[2024-10-03] MEDS: LOVENOX SC (17:26)
--- NOTE | 2024-10-03 18:12 | PTCARENOTE ---
Patient refusing pm medications and still refusing iv abx. Patient educated on importance of taking meds.
[2024-10-03 19:20] VITALS: BP 187/67
[2024-10-03] MEDS: TOPROL XL 50 MG PO (19:20)
[2024-10-03] MEDS: ASPIR LOW (ENTERIC COATED) 81 MG PO (21:04)
[2024-10-03] MEDS: RISPERDAL 0.5 MG PO (21:05)
[2024-10-03] MEDS: MELATONIN 5 MG PO (21:05)
[2024-10-03] MEDS: LIPITOR 10 MG PO (21:05)
[2024-10-03] MEDS: TUMS CHEWABLE TABLET 200 MG PO (21:47)
--- NOTE | 2024-10-03 22:38 | PTCARENOTE ---
Patient agreeable to medications after discussion involving outcomes. Patients blood pressure was 187/67 and agreed to take Toprol XL. Patient was also agreeable to have an IV placed and take his ordered Merrem. IV nurse came at 22:00 and patient
refused to have IV placed. Patient states he wants to start Merrem tomorrow and have IV placed at that time. Blood work obtained at 21:00. Bed alarm in place and call abarca in reach.
[2024-10-03 23:10] VITALS: BP 177/66
[2024-10-04 07:16] LABS: % Basophils 0.5 % (0-2); % Eosinophils 1.1 % (0-6); % Immature Granulocytes 0.4 % (0-0.5); % Lymphocytes 17.8 % (20.5-51.1); % Monocytes 10.8 % (1.7-9.3); % Neutrophils 69.4 % (42.2-75.2); Absolute Eosinophils 0.1 10^3/uL (0-0.7); Absolute Monocytes 0.6 10^3/uL (0.1-0.6); Absolute Neutrophils 3.8 10^3/uL (1.4-6.5); Hematocrit 42.1 % (39.0-52.0); Hemoglobin 13.6 g/dL (13.0-18.0); Mean Corp Hgb Conc. 32.3 g/dL (33.0-37.0); Mean Corpuscular Hgb 27.2 pg (27.0-31.0); Mean Corpuscular Volume 84.2 fL (80.0-94.0); Mean Platelet Volume 9.8 fL (7.4-10.4); Nucleated Red Blood Cells % 0 % (-); Platelet Count 178 10^3/uL (130-400); Red Cell Dist. Width 14.3 % (11.5-14.5); White Blood Cell Count 5.5 10^3/uL (4.8-10.8)
[2024-10-04 07:19] VITALS: BP 136/76
[2024-10-04 07:38] LABS: Blood Urea Nitrogen 16 mg/dl (9-20); Calcium 8.6 mg/dl (8.4-10.2); Carbon Dioxide 25 mmol/L (22-30); Chloride 100 mmol/L (98-107); Estimated Creatinine Clearance 58 ml/min; Glucose 113 mg/dl (70-99); Sodium 138 mmol/L (135-145); eGFR > 60.00
[2024-10-04] MEDS: TOPROL XL 50 MG PO ×2 (08:43→23:00)
[2024-10-04] MEDS: PEPCID 20 MG PO (08:43)
[2024-10-04] MEDS: SENOKOT-S PO ×2 (08:43→16:13)
[2024-10-04] MEDS: MIRALAX 17 GRAMS PO (08:44)
[2024-10-04] MEDS: STERILE WATER FOR INJECTION 10 ML IV ×3 (08:46→21:50)
[2024-10-04] MEDS: MERREM 500 MG IV ×3 (08:46→21:53)
--- NOTE | 2024-10-04 08:55 | PTCARENOTE ---
Patient complaining of being SOB. patient 92% on RA. Patient placed on 2 L NC and sating 98%. Patient agreeable to taking IV abx and am dose of metoprolol. Administered per orders. Patient resting comfortably in bed. Call abarca within reach.
[2024-10-04 10:15] VITALS: BMI 15.2
[2024-10-04] MEDS: ZYPREXA 5 MG IM (11:52)
--- NOTE | 2024-10-04 11:55 | W.PN.HOSP.TC ---
Addendum entered and electronically signed by Junito Omalley MD 10/04/24 15:03:
Finally was able to get in touch with spouse Mervat. Explained to the spouse the hospital course so far including lung mass with high susceptibility of lung cancer. Explained to her about patient being agitation and requiring chemical and
physical restraints she understands the process. Spouse to come in the hospital and talk to patient and calm him down. Increased dose of Zyprexa and await further psych recommendation.
Original Note:
Today's Communication/Plan
-
IV abx
Follow-up on the culture data
Psych recommendation
Assessment / Plan
Assessment / Plan
General: disshelved, chronically ill appearing
HEENT: NormoCephalic, Anicteric, Atraumatic and PERRLA
Respiratory: Decreased Breath Sounds
Cardiac: S1/S2 and Regular Rhythm
Breast: Deferred by me
GI: Soft, Non Tender, Non Distended and Normal Bowel Sounds
Rectal: Deferred by Provider
Genito-urinary: Deferred by me
Musculoskeletal: No Clubbing, No Cyanosis and No Edema
Skin: Warm
Neuro: Alert, Oriented (oriented to person, but did not recall place, year or month) and Nonfocal/grossly intact
Psych: Calm after prolonged discussion
IMPRESSION:
84 y.o here with generalized weakness after 1 week of increased falls at home and overall having had falls for about a month. Testing in ED is unrevealing of etiology. Possible PNA with cough (though chronic), fever and a upper lobe opacity
however procal negative. U/A is equivocal and not c/w acute cystitis. Labs do not show significant dehydration. Non-focal neuro exam and negative head CT. CT a/p showed a r 9th rib mildly displaced rib fracture and some narrowed celiac and sma
vessels.
PLAN:
Acute COVID-19 infection .
-Symptomatic management.
-Unclear timeline and does hold off on Paxlovid
Acinetobacter bacteremia likely ? pna.
-Started on IV antibiotics meropenem per ID. Fortunately agreeable to take antibiotics now.
-Unclear source of infection. ? pna. no recent procedure.
-Follow-up on the susceptibility results. Follow-up on the surveillance culture data.
Weakness secondary to COVID-19 infection
-Encourage increased p.o. intake. May require SNF at discharge.
History of severe tobacco abuse
Left upper lobe lung lesion likely malignancy
-Pulmonary evaluation and recommend to monitor for now. Patient with significant weight loss recently. If patient agrees then can do outpatient biopsy and follow-up
-Patient was informed of the findings and understanding. Unable to get hold of family to discuss.
Toxic metabolic encephalopathy likely delirium versus underlying cognitive impairment worsening
Severe agitation at times
-Risperdal as needed, am/hs.
-Melatonin at bedtime. Antipsychotropic meds per psychiatry. IM Zyprexa as needed.
-Psych consulted
Falls and rib fracture - mildly displaced left 9th rib fracture. Unclear acuity.
- supportive measures and pain control
- CT chest as above
- orthostatics
- PT eval
Atrial fibrillation unknown chronicity
-Looking to record seems refused anticoagulation in the past
-Not on any rate control agents
Peripheral vascular disease
History of stroke
Left carotid stenosis
Coronary artery disease
DVT PPX - lovenox sq
Code status - full code
Once again call placed to the listed number and left voicemail to call back SCAR. So far I have left multiple voicemails and called to the family however no response back.
Anticipated Discharge: > 48 hours
Subjective/Interval History
-
Date of Service: October 04, 2024
Pt was agreeable to receive antibiotics
states of sob overnight and now on oxygen for comfort
was calm earlier today and but getting agitated now per RN
Objective Data
-
Labs:
Laboratory Results
10/04/24
05:27
WBC 5.5
Hgb 13.6
Hct 42.1
Plt Count 178
Sodium 138
Potassium 4.0
Chloride 100
Carbon Dioxide 25
BUN 16
Creatinine 0.7
Glucose 113 H
Calcium 8.6
Vital Signs:
Vital Signs
Temp Pulse Resp BP Pulse Ox
98.1 F 84 16 136/76 98
10/04/24 07:19 10/04/24 07:19 10/04/24 07:19 10/04/24 07:19 10/04/24 09:27
I&O
10/03/24 10/04/24 10/05/24
06:59 06:59 06:59
Intake Total 400 / 400 240 / 240
Output Total 650 / 650 200 / 200
Balance -250 / -250 40 / 40
Data Reviewed
-
Total Time Spent with Patient (in minutes): 55
[2024-10-04] MEDS: PLETAL PO (12:08)
--- NOTE | 2024-10-04 12:09 | PTCARENOTE ---
Patient bed alarm going off. Patient lowered himself onto hands and knees to grab blankets. Patient states this is how he gets around at home. Patient did not fall. Patient assisted back to bed. Patient increasingly agitated and restless. Cursing at
staff. IM Zyprexa administered per prn order.
--- NOTE | 2024-10-04 15:00 | PTCARENOTE ---
Patient agitated, continuously getting OOB without assistance and refusing to get back to bed or sit in chair. Patient states he wants to 'go back to his normal room.' This nurse tried to redirect patient but patient swearing, uncooperative and
swinging at staff. Code purple called. Patient placed back to bed. MD made aware. Restraints applied per order. Psych MD made aware. Ativan IV ordered. Will administer. coming to sit with patient at bedside.
[2024-10-04 15:07] VITALS: BP 165/92
[2024-10-04] MEDS: ATIVAN 1 MG IV (15:18)
[2024-10-04] MEDS: NSS (PRESERVATIVE FREE) 0.5 ML IV (15:19)
--- NOTE | 2024-10-04 15:40 | CM ---
Pt admitted with weakness/fatigue - found to be Covid +
Confused/disoriented at present - spoke to pts to complete IA
Lives with his in a1 story condo; no steps to enter
Confused at times, increasingly needed assist during last week - prior independent with ADL's, no device for ambulation
DME - none
SNF/HH - no past hx
PCP - Dr Tejinder Marcelino
Pharm - [facility] in [place]
PT/OT recs - pending
Pts reports she feels pt may need LTC. Poss Jc Cavanaugh.
Plan - anticipate snf/LTC when medically stable
--- NOTE | 2024-10-04 16:37 | W.PN.UPDATE ---
Update Note
Progress Note Update
84 y/o man living at home who had a series of falls, would crawl around his house and had cough. Found to have COVID and one blood culture grew Acinetobacter Species, and being treated for pneumonia with IV Abiotic. Seen yesterday due to
medication refusal, agitation and denial of illness. He has some degree of dementia. Cooperated with IV, labs and oral medications last night and this morning. Had Code Purple today when agitated, hitting and spitting at staff and attempting to
get out of bed. He has required restraints. Zyprexa 5 mg. IM had no effect. I ordered stat dose of Ativan 1 mg. IV which has been effective in safely sedating him.
He is asleep and not responsive to me calling him, but awake enough to touch his irwin. He has risperidone 0.5 mg. BID ordered Will add a PRN dose of Ativan 1 mg. IV for severe agitation.
He also has a lung mass suspicious for cancer which will be worked up as an outpatient. He has had about a 50 lb. weight loss. Has no appetite and is not eating here, but today took some fluids. Although family has said they were coming to visit,
no one came today or yesterday.
Psychiatry will follow.
[2024-10-04] MEDS: LOVENOX SC ×2 (17:00)
[2024-10-04 22:53] VITALS: BP 157/102
[2024-10-04] MEDS: TYLENOL 650 MG PO (23:00)
[2024-10-04] MEDS: RISPERDAL 0.5 MG PO (23:00)
[2024-10-04] MEDS: ASPIR LOW (ENTERIC COATED) 81 MG PO (23:00)
[2024-10-04] MEDS: MELATONIN 5 MG PO (23:00)
[2024-10-04] MEDS: LIPITOR 10 MG PO (23:00)
[2024-10-05] MEDS: PLETAL PO ×2 (00:19→12:14)
[2024-10-05] MEDS: MERREM 500 MG IV ×4 (04:29→22:05)
[2024-10-05] MEDS: STERILE WATER FOR INJECTION 10 ML IV ×4 (04:29→22:05)
[2024-10-05 07:05] VITALS: BP 121/50
[2024-10-05 08:30] LABS: % Basophils 0.5 % (0-2); % Eosinophils 0.2 % (0-6); % Immature Granulocytes 0.3 % (0-0.5); % Lymphocytes 15.2 % (20.5-51.1); % Monocytes 11.1 % (1.7-9.3); % Neutrophils 72.7 % (42.2-75.2); Absolute Monocytes 0.7 10^3/uL (0.1-0.6); Absolute Neutrophils 4.7 10^3/uL (1.4-6.5); Hematocrit 37.8 % (39.0-52.0); Hemoglobin 12.4 g/dL (13.0-18.0); Mean Corp Hgb Conc. 32.8 g/dL (33.0-37.0); Mean Corpuscular Hgb 27.7 pg (27.0-31.0); Mean Corpuscular Volume 84.4 fL (80.0-94.0); Mean Platelet Volume 9.6 fL (7.4-10.4); Nucleated Red Blood Cells % 0 % (-); Platelet Count 154 10^3/uL (130-400); Red Blood Cell Count 4.48 10^6/uL (4.70-6.10); Red Cell Dist. Width 14.4 % (11.5-14.5); White Blood Cell Count 6.4 10^3/uL (4.8-10.8)
[2024-10-05 08:50] LABS: Blood Urea Nitrogen 17 mg/dl (9-20); Calcium 8.2 mg/dl (8.4-10.2); Carbon Dioxide 27 mmol/L (22-30); Chloride 102 mmol/L (98-107); Estimated Creatinine Clearance 34 ml/min; Glucose 92 mg/dl (70-99); Potassium 4.1 mmol/L (3.5-5.1); Sodium 138 mmol/L (135-145); eGFR 59.26
[2024-10-05] MEDS: SENOKOT-S PO ×3 (09:31→17:22)
[2024-10-05] MEDS: MIRALAX PO ×2 (09:31→09:50)
[2024-10-05] MEDS: RISPERDAL PO ×2 (09:31→09:50)
[2024-10-05] MEDS: PEPCID PO ×2 (09:31→09:50)
[2024-10-05] MEDS: TOPROL XL PO ×2 (09:44→09:51)
--- NOTE | 2024-10-05 10:10 | PTCARENOTE ---
Patient refusing most morning meds - states 'get the fuck away from me, I will punch you if you try to come closer. Leave me the fuck alone.' Unable to redirect at this time. Patient is disoriented to place/time.
--- NOTE | 2024-10-05 14:30 | W.PN.HOSP.TC ---
Today's Communication/Plan
-
Empiric antibiotics.
Aspiration precautions.
Behavioral control.
COVID-19 isolation precautions.
Attempted to contact POA over the phone with no response
Assessment / Plan
Assessment / Plan
IMPRESSION:
84 y.o here with generalized weakness after 1 week of increased falls at home and overall having had falls for about a month. Testing in ED is unrevealing of etiology. Possible PNA with cough (though chronic), fever and a upper lobe opacity
however procal negative. U/A is equivocal and not c/w acute cystitis. Labs do not show significant dehydration. Non-focal neuro exam and negative head CT. CT a/p showed a r 9th rib mildly displaced rib fracture and some narrowed celiac and sma
vessels.
Suspected left upper lobe mass versus infiltrate by CT scan
COVID-19 infection
Metabolic encephalopathy with agitation
Suspect acute on chronic ambulatory dysfunction with falls at home and multiple rib fractures
Other conditions
Paroxysmal atrial fibrillation
CAD.
History of renal cell carcinoma status post right nephrectomy.
History of CVA.
Essential hypertension.
Suspect underlying dementia.
Dyslipidemia.
Carotid artery stenosis/PAD.
Ongoing tobacco use disorder
Plan
Acute COVID-19 infection .
-Symptomatic management.
-Unclear timeline and does hold off on Paxlovid
Left upper lobe mass on CT scan
History of severe tobacco abuse
Ongoing tobacco use disorder. Severe cachexia and wasting. Concern for undiagnosed malignancy.
Patient would be a poor candidate for any invasive diagnostic testing or treatment.
Multiple attempts to contact family for goals of care discussion.
Acinetobacter bacteremia likely ? pna, possible postobstructive process
-Started on IV antibiotics meropenem per ID. Fortunately agreeable to take antibiotics now.
-Unclear source of infection. ? pna. no recent procedure.
-Follow-up on the susceptibility results. Follow-up on the surveillance culture data.
Weakness secondary to COVID-19 infection
-Encourage increased p.o. intake. May require SNF at discharge.
Toxic metabolic encephalopathy likely delirium versus underlying cognitive impairment worsening
Severe agitation at times
-Risperdal as needed, am/hs.
-Melatonin at bedtime. Antipsychotropic meds per psychiatry. IM Zyprexa as needed.
Falls and rib fracture - mildly displaced left 9th rib fracture. Unclear acuity.
- supportive measures and pain control
- CT chest as above
- orthostatics
- PT eval
Atrial fibrillation unknown chronicity
-Looking to record seems refused anticoagulation in the past
-Not on any rate control agents
Peripheral vascular disease
History of stroke
Left carotid stenosis
Coronary artery disease
DVT PPX - lovenox sq
Code status - full code
Anticipated Discharge: > 48 hours
Subjective/Interval History
-
Date of Service: October 05, 2024
Objective Data
-
Labs:
Laboratory Results
10/05/24
08:06
WBC 6.4
Hgb 12.4 L
Hct 37.8 L
Plt Count 154
Sodium 138
Potassium 4.1
Chloride 102
Carbon Dioxide 27
BUN 17
Creatinine 1.2
Glucose 92
Calcium 8.2 L
Vital Signs:
Vital Signs
Temp Pulse Resp BP Pulse Ox
98.0 F 51 17 121/50 93
10/05/24 07:05 10/05/24 07:05 10/05/24 07:05 10/05/24 07:05 10/05/24 14:12
I&O
10/04/24 10/05/24 10/06/24
06:59 06:59 06:59
Intake Total 240 / 240 495 / 495
Output Total 200 / 200 250 / 250
Balance 40 / 40 245 / 245
Physical Exam
-
General: No Apparent Distress, Appears Chronically Ill and Cachectic
HEENT: Normocephalic, Atraumatic and Moist Mucous Membranes
Respiratory: Decreased Breath Sounds; Negative Wheezes
Cardiac: Regular Rhythm and S1/S2; Negative Murmur, Rub or Gallop
GI: Soft, Nontender, Nondistended and Normal Bowel Sounds; Negative Organomegaly
Rectal: Deferred by Provider
Musculoskeletal: No Clubbing, No Cyanosis and No Edema
Skin: Negative Rash
Neuro: Other (Sedated/obtunded)
[2024-10-05 15:25] VITALS: BP 127/53
--- NOTE | 2024-10-05 17:44 | PTCARENOTE ---
Spoke with patient's , Mervat. She states that she wishes for him to go to a senior care from here due to her inability to care for him. Also apprised her of the patient's status/condition for today. She will stop in later this evening to see
him.
[2024-10-05] MEDS: LOVENOX SC (17:47)
[2024-10-05] MEDS: TOPROL XL 50 MG PO (20:46)
--- NOTE | 2024-10-05 20:48 | PTCARENOTE ---
Pt's witnessed by this nurse feeding patient while he was laying flat in bed. educated on risk of aspiration, verbalizes understanding. However pt with frequent moist crew leader gluing cough, flushed and saturation on the 80's on RA, O2 applied at 4L,
pox 93%. Lung sound coarse with scattered rhonchi throughout and ex wheeze. BP 180/68, 96, T 97.6, RR 26. Scheduled lopressor given at this time, will recheck bp.
[2024-10-05] MEDS: ProAIR HFA INHALER 1 PUFF INH (21:02)
[2024-10-05] MEDS: MELATONIN 5 MG PO (22:04)
[2024-10-05] MEDS: LIPITOR 10 MG PO (22:04)
[2024-10-05] MEDS: ASPIR LOW (ENTERIC COATED) 81 MG PO (22:04)
[2024-10-05] MEDS: RISPERDAL 0.5 MG PO (22:04)
[2024-10-05 23:36] VITALS: BP 149/91
[2024-10-06] MEDS: PLETAL 100 MG PO ×3 (00:49→23:32)
[2024-10-06] MEDS: MERREM 500 MG IV ×2 (04:03→10:21)
[2024-10-06] MEDS: STERILE WATER FOR INJECTION 10 ML IV ×2 (04:03→10:21)
[2024-10-06 07:07] LABS: % Basophils 0.6 % (0-2); % Eosinophils 0.3 % (0-6); % Immature Granulocytes 0.3 % (0-0.5); % Lymphocytes 11.2 % (20.5-51.1); % Monocytes 11.9 % (1.7-9.3); % Neutrophils 75.7 % (42.2-75.2); Absolute Lymphocytes 0.8 10^3/uL (1.2-3.4); Absolute Monocytes 0.8 10^3/uL (0.1-0.6); Absolute Neutrophils 5.3 10^3/uL (1.4-6.5); Hematocrit 37.1 % (39.0-52.0); Hemoglobin 12.6 g/dL (13.0-18.0); Mean Corpuscular Hgb 27.8 pg (27.0-31.0); Mean Corpuscular Volume 81.9 fL (80.0-94.0); Mean Platelet Volume 10.2 fL (7.4-10.4); Nucleated Red Blood Cells % 0 % (-); Platelet Count 156 10^3/uL (130-400); Red Blood Cell Count 4.53 10^6/uL (4.70-6.10); Red Cell Dist. Width 14.5 % (11.5-14.5)
[2024-10-06 07:19] VITALS: BP 121/70
[2024-10-06 07:31] LABS: Blood Urea Nitrogen 20 mg/dl (9-20); Calcium 8.2 mg/dl (8.4-10.2); Carbon Dioxide 23 mmol/L (22-30); Chloride 103 mmol/L (98-107); Estimated Creatinine Clearance 51 ml/min; Glucose 105 mg/dl (70-99); Potassium 3.9 mmol/L (3.5-5.1); Sodium 137 mmol/L (135-145); eGFR > 60.00
--- NOTE | 2024-10-06 07:48 | PN.CDI ---
CDI
- -
CDI:
Physician Documentation Request
Admit Date: 10/02/24 09:03
Dear Doctor Cira,
Please review the following and provide your response in the progress notes.
Clinical Indicators:
- RN skin assessments indicate Stage 1 sacrum pressure injury, POA
Physician documentation of the type and location of wounds is required for compliant documentation. Based on the above clinical findings and your assessment, please provide the following in your progress note:
1. Location of the ulcer/wound, including laterality.
2. Type (etiology) of ulcer/wound:
- Diabetic ulcer
- Arterial (ischemic) ulcer
- Traumatic wound
- Venous stasis ulcer
- Pressure (decubitus) ulcer
- Non-healing surgical wound
- Other
Use of terms such as suspected, likely, concern for, or probable (associated with a specific diagnosis that is being evaluated, monitored, or treated as if it exists) are acceptable and can be coded in the inpatient setting, when documented at the
time of discharge.
Thank you,
Anuradha Burrell RN
CDI Specialist
Please use your independent medical judgment in providing your response.
*Source: National Pressure Ulcer Advisory Panel (NPUAP)
[2024-10-06] MEDS: PEPCID 20 MG PO (10:22)
[2024-10-06] MEDS: RISPERDAL 0.5 MG PO ×2 (10:22→20:58)
[2024-10-06] MEDS: SENOKOT-S 1 TABLET PO ×2 (10:23→18:00)
[2024-10-06] MEDS: MIRALAX 17 GRAMS PO (10:23)
[2024-10-06] MEDS: TOPROL XL 50 MG PO ×2 (10:23→20:51)
--- NOTE | 2024-10-06 10:38 | W.PN.UPDATE ---
Update Note
Progress Note Update
Patient asleep. Discussed with RN. Episode of cursing overnight when receiving ABX but otherwise, no acute issues. Taking meds. Tried to reach with no answer.
Impression/Recommendations- Vascular Dementia with psychotic symptoms - Continue risperidone to 0.5 mg BID. Will follow.
--- NOTE | 2024-10-06 11:14 | W.PN.ID1 ---
Date of Service
Date of Service: October 06, 2024
Today's Communication
- switch to ciprofloxacin to complete a 7 day total course of treatment 10/04-10/10
- stable for dc from ID perspective
medium term prognosis guarded with profound cachexia, weakness and suspected malignancy. Pulmonary service planning outpatient workup.
Assessment / Plan
Covid Infection - mild saturating 100% on room air
Acinetobacter Bacteremia
Cachexia (profound)/FTT
- repeat blood cultures x2 no growth to date
- QTc acceptable
- switch to ciprofloxacin to complete a 7 day total course of treatment 10/04-10/10
- stable for dc from ID perspective
medium term prognosis guarded with profound cachexia, weakness and suspected malignancy. Pulmonary service planning outpatient workup.
Chief Complaint
-: Bacteremia
Subjective / Review of Systems
afebrile
bp stable
tolerating current therapies
blood cultures have cleared
Vital Signs / Physical Exam
Vital Signs
Vital Signs
Temp Pulse Resp BP Pulse Ox
98.9 F 95 16 121/70 96
10/06/24 07:19 10/06/24 10:23 10/06/24 07:19 10/06/24 10:23 10/06/24 07:19
Physical Exam
Constitutional: No Acute Distress, Chronically Ill and Cachetic
Cardiovascular: Regular Rate and S1/S2; Negative Murmur or Rub
Pulmonary: Clear and Symmetric; Negative Wheezes or Rales
Gastrointestinal: Soft, Non Tender, Non Distended and Normal Bowel Sounds
Skin: Warm and Dry; Negative Rash or Jaundice
Objective Data
Lab Data
Lab Results
10/06/24 05:49
10/06/24 05:49
PT 14.1 Sec (11.4-14.6) 10/01/24 23:11
INR 1.04 10/01/24 23:11
APTT 35.2 Sec (23.4-35.0) H 10/01/24 23:11
Estimated Creat Clear 51 ml/min 10/06/24 05:49
Lactic Acid 1.3 mmol/L (0.7-2.0) 10/01/24 23:11
Total Bilirubin 1.0 mg/dl (0.2-1.3) 10/01/24 23:11
AST 15 U/L (17-59) L 10/01/24 23:11
ALT < 10 U/L (0-50) 10/01/24 23:11
Alkaline Phosphatase 106 U/L (38-126) 10/01/24 23:11
Most recent labs reviewed.
Micro Results:
10/01/24 23:11 Blood Culture - Preliminary
Blood/Venous Acinetobacter lwoffii
Gram Stain - Preliminary
10/04/24 05:27 Blood Culture - Preliminary
Blood/Venous No Growth in 48 hours- Final report to follow
10/01/24 23:11 Blood Culture - Preliminary
Blood/Venous No Growth in 4 days- Final report to follow
10/03/24 22:29 Blood Culture - Preliminary
Blood/Venous No Growth in 48 hours- Final report to follow
10/01/24 23:55 Urine Culture - Final
Urine NO GROWTH
10/02/24 05:26 Influenza Types A & B ([facility]) - Final
Nasal Swab Negative for Influenza A & B, NAAT
Negative results must be combined with clinical observations
and patient history.
Nucleic Acid Amplification test (NAAT)performed on the
[employer] platform.
--- NOTE | 2024-10-06 13:24 | W.PN.HOSP.TC ---
Today's Communication/Plan
-
Continue meropenem
Follow repeated blood culture for clearance
Aspiration precautions
Speech evaluation
Continue Risperdal
Assessment / Plan
Assessment / Plan
IMPRESSION:
84 y.o here with generalized weakness after 1 week of increased falls at home and overall having had falls for about a month. Testing in ED is unrevealing of etiology. Possible PNA with cough (though chronic), fever and a upper lobe opacity
however procal negative. U/A is equivocal and not c/w acute cystitis. Labs do not show significant dehydration. Non-focal neuro exam and negative head CT. CT a/p showed a r 9th rib mildly displaced rib fracture and some narrowed celiac and sma
vessels.
Suspected left upper lobe mass versus infiltrate by CT scan
COVID-19 infection
Metabolic encephalopathy with agitation
Suspect acute on chronic ambulatory dysfunction with falls at home and multiple rib fractures
Other conditions
Paroxysmal atrial fibrillation
CAD.
History of renal cell carcinoma status post right nephrectomy.
History of CVA.
Essential hypertension.
Suspect underlying dementia.
Dyslipidemia.
Carotid artery stenosis/PAD.
Ongoing tobacco use disorder
Plan
Acute COVID-19 infection .
-Symptomatic management.
-Unclear timeline and does hold off on Paxlovid
Left upper lobe mass on CT scan
History of severe tobacco abuse
Ongoing tobacco use disorder. Severe cachexia and wasting. Concern for undiagnosed malignancy.
Patient would be a poor candidate for any invasive diagnostic testing or treatment.
Multiple attempts to contact family for goals of care discussion.
Acinetobacter bacteremia likely ? pna, possible postobstructive process
-Started on IV antibiotics meropenem per ID. Fortunately agreeable to take antibiotics now.
-Unclear source of infection. ? pna. no recent procedure.
-Follow-up on the susceptibility results. Follow-up on the surveillance culture data.
Weakness secondary to COVID-19 infection
-Encourage increased p.o. intake. May require SNF at discharge.
Toxic metabolic encephalopathy likely delirium versus underlying cognitive impairment worsening
Severe agitation at times
-Risperdal as needed, am/hs.
-Melatonin at bedtime. Antipsychotropic meds per psychiatry. IM Zyprexa as needed.
Falls and rib fracture - mildly displaced left 9th rib fracture. Unclear acuity.
- supportive measures and pain control
- CT chest as above
- orthostatics
- PT eval
Atrial fibrillation unknown chronicity
-Looking to record seems refused anticoagulation in the past
-Not on any rate control agents
Peripheral vascular disease
History of stroke
Left carotid stenosis
Coronary artery disease
DVT PPX - lovenox sq
Code status - full code
Anticipated Discharge: 24 - 48 hours
Subjective/Interval History
-
Date of Service: October 06, 2024
Objective Data
-
Labs:
Laboratory Results
10/06/24
05:49
WBC 7.0
Hgb 12.6 L
Hct 37.1 L
Plt Count 156
Sodium 137
Potassium 3.9
Chloride 103
Carbon Dioxide 23
BUN 20
Creatinine 0.8
Glucose 105 H
Calcium 8.2 L
Vital Signs:
Vital Signs
Temp Pulse Resp BP Pulse Ox
98.9 F 95 16 121/70 96
10/06/24 07:19 10/06/24 10:23 10/06/24 07:19 10/06/24 10:23 10/06/24 08:00
I&O
10/05/24 10/06/24 10/07/24
06:59 06:59 06:59
Intake Total 495 / 495 960 / 960
Output Total 250 / 250
Balance 245 / 245 960 / 960
Physical Exam
-
General: No Apparent Distress, Appears Chronically Ill and Cachectic
HEENT: Normocephalic, Atraumatic and Moist Mucous Membranes
Respiratory: Decreased Breath Sounds; Negative Wheezes
Cardiac: Regular Rhythm and S1/S2; Negative Murmur, Rub or Gallop
GI: Soft, Nontender, Nondistended and Normal Bowel Sounds; Negative Organomegaly
Rectal: Deferred by Provider
Musculoskeletal: No Clubbing, No Cyanosis and No Edema
Skin: Negative Rash
Neuro: Awake, Alert, Oriented and Nonfocal/Grossly Intact
--- NOTE | 2024-10-06 14:30 | PTOTSP ---
Speech Language Pathology
Pt seen for clinical bedside swallow evaluation. Seen with lunch tray of regular solids/thin liquids. Slightly prolonged mastication of regular solids noted, likely secondary to no lower teeth (has full upper dentures), not a true oral dysphagia.
Wet, nonproductive cough noted at rest. Also noted at times with P.O. intake, but did not increase in frequency. WBC WNL, and CT chest not specifically concerning for aspiration. Will continue diet and monitor. Can complete VSE as needed.
Recommend:
(1) Continue regular solids/thin liquids
(2) Aspiration precautions: sit upright, slow rate
(3) Meds whole in puree given respiratory status (typically takes multiple whole with liquid)
(4) SERVICE CREW SUPERVISOR to continue to follow
--- NOTE | 2024-10-06 15:11 | CM ---
Met patient at bedside.
Covid +
Await PT/OT evals
called Mervat and left message regarding referrals
Will await PT/OT notes
PLAN: anticipate SNF, Await PT/OT
[2024-10-06 15:26] VITALS: BP 95/54
[2024-10-06 15:28] VITALS: BP 131/60; PULSE 92; O2SAT 94
[2024-10-06] MEDS: LOVENOX 40 MG SC (18:00)
[2024-10-06 18:02] VITALS: BP 158/67
[2024-10-06] MEDS: CIPRO 500 MG PO (20:51)
[2024-10-06] MEDS: LIPITOR 10 MG PO (20:59)
[2024-10-06] MEDS: MELATONIN 5 MG PO (20:59)
[2024-10-06] MEDS: ASPIR LOW (ENTERIC COATED) 81 MG PO (20:59)
[2024-10-06 23:59] VITALS: BP 110/66
[2024-10-07] VITALS (7 sets, daily range): BP systolic 76–162; BP diastolic 44–66; PULSE 72
[2024-10-07 06:48] LABS: % Basophils 0.5 % (0-2); % Eosinophils 0.9 % (0-6); % Immature Granulocytes 0.5 % (0-0.5); % Lymphocytes 15.5 % (20.5-51.1); % Monocytes 11.9 % (1.7-9.3); % Neutrophils 70.7 % (42.2-75.2); Absolute Eosinophils 0.1 10^3/uL (0-0.7); Absolute Lymphocytes 0.9 10^3/uL (1.2-3.4); Absolute Monocytes 0.7 10^3/uL (0.1-0.6); Hematocrit 32.8 % (39.0-52.0); Hemoglobin 10.9 g/dL (13.0-18.0); Mean Corp Hgb Conc. 33.2 g/dL (33.0-37.0); Mean Corpuscular Hgb 27.5 pg (27.0-31.0); Mean Corpuscular Volume 82.8 fL (80.0-94.0); Nucleated Red Blood Cells % 0 % (-); Platelet Count 136 10^3/uL (130-400); Red Blood Cell Count 3.96 10^6/uL (4.70-6.10); Red Cell Dist. Width 14.2 % (11.5-14.5); White Blood Cell Count 5.6 10^3/uL (4.8-10.8)
[2024-10-07 07:13] LABS: Blood Urea Nitrogen 19 mg/dl (9-20); Carbon Dioxide 26 mmol/L (22-30); Chloride 102 mmol/L (98-107); Estimated Creatinine Clearance 51 ml/min; Glucose 126 mg/dl (70-99); Potassium 3.5 mmol/L (3.5-5.1); Sodium 136 mmol/L (135-145); eGFR > 60.00
[2024-10-07] MEDS: SENOKOT-S 1 TABLET PO ×2 (09:08→18:00)
[2024-10-07] MEDS: TOPROL XL 50 MG PO ×2 (09:08→20:35)
[2024-10-07] MEDS: PEPCID 20 MG PO (09:08)
[2024-10-07] MEDS: CIPRO 500 MG PO ×2 (09:08→20:35)
[2024-10-07] MEDS: RISPERDAL 0.5 MG PO ×2 (09:08→23:05)
[2024-10-07] MEDS: MIRALAX 17 GRAMS PO (09:20)
[2024-10-07] MEDS: TYLENOL 650 MG PO (09:21)
--- NOTE | 2024-10-07 09:36 | CM ---
Addendum entered by Maggie Rodriguez 10/07/24 11:31:
per Kate at [facility] she will accept once medically stable, pending bed.
Will need authorization
Original Note:
Spoke with patient Mervat
PT rec SNF
Options given to - referrals placed in [facility]
States potential LTC-wants to see how he does in rehab
Will need to obtain authorization
PLAN: SNF, pending bed availability, will need to obtain auth
[2024-10-07 10:55] LABS: Glucose - Point of Care 132 mg/dl (70-99)
[2024-10-07] MEDS: NSS 500 IV (11:06)
--- NOTE | 2024-10-07 11:38 | W.PN.UPDATE ---
Update Note
Progress Note Update
patient seen chart reviewed. discussed with nursing. the patient is here w covid . he has a long hx of medical issues including malignancy cad cva renal ca hld htn carotid stenosis ischemic brain. recently suffered wt loss and there is ? re another
malignancy in his lung. he had been placed on risperdal for psychosis. currently he is cooperative and variously oriented. he has not used prn of risperdal or zyprexa. did not make any changes in his psych meds. will call to obtain
further hx later today.
--- NOTE | 2024-10-07 12:09 | W.PN.HOSP.TC ---
Today's Communication/Plan
-
Noted with transient hypotension and lethargy this morning.
Later resolved.
Completed fluid bolus.
Remains on oral antibiotics.
Physical therapy assessment.
Given clinical/radiologic findings suggestive of malignancy, patient deconditioning and comorbidities, plan is for goals of care discussion with patient's family
Assessment / Plan
Assessment / Plan
IMPRESSION:
84 y.o here with generalized weakness after 1 week of increased falls at home and overall having had falls for about a month. Testing in ED is unrevealing of etiology. Possible PNA with cough (though chronic), fever and a upper lobe opacity
however procal negative. U/A is equivocal and not c/w acute cystitis. Labs do not show significant dehydration. Non-focal neuro exam and negative head CT. CT a/p showed a r 9th rib mildly displaced rib fracture and some narrowed celiac and sma
vessels.
Suspected left upper lobe mass versus infiltrate by CT scan
COVID-19 infection
Metabolic encephalopathy with agitation
Suspect acute on chronic ambulatory dysfunction with falls at home and multiple rib fractures
Other conditions
Paroxysmal atrial fibrillation
CAD.
History of renal cell carcinoma status post right nephrectomy.
History of CVA.
Essential hypertension.
Suspect underlying dementia.
Dyslipidemia.
Carotid artery stenosis/PAD.
Ongoing tobacco use disorder
Plan
Acute COVID-19 infection .
-Symptomatic management.
-Unclear timeline and does hold off on Paxlovid
Left upper lobe mass on CT scan
History of severe tobacco abuse
Ongoing tobacco use disorder. Severe cachexia and wasting. Concern for undiagnosed malignancy.
Patient would be a poor candidate for any invasive diagnostic testing or treatment.
Multiple attempts to contact family for goals of care discussion.
Acinetobacter bacteremia likely ? pna, possible postobstructive process
-Initiated on meropenem. Follow-up culture with no growth. Transition to Cipro to complete 7-day course of antibiotics through 10/10
-Unclear source of infection. ? pna. no recent procedure.
-Follow-up on the susceptibility results. Follow-up on the surveillance culture data.
Weakness secondary to COVID-19 infection
-Encourage increased p.o. intake. May require SNF at discharge.
Toxic metabolic encephalopathy likely delirium versus underlying cognitive impairment worsening
Severe agitation at times
-Risperdal as needed, am/hs.
-Melatonin at bedtime. Antipsychotropic meds per psychiatry. IM Zyprexa as needed.
Falls and rib fracture - mildly displaced left 9th rib fracture. Unclear acuity.
- supportive measures and pain control
- CT chest as above
- orthostatics
- PT eval
Atrial fibrillation unknown chronicity
-Looking to record seems refused anticoagulation in the past
-Not on any rate control agents
Peripheral vascular disease
History of stroke
Left carotid stenosis
Coronary artery disease
DVT PPX - lovenox sq
Code status - full code
Anticipated Discharge: 24 - 48 hours
Subjective/Interval History
-
Date of Service: October 07, 2024
Objective Data
-
Labs:
Laboratory Results
10/07/24
06:14
WBC 5.6
Hgb 10.9 L
Hct 32.8 L
Plt Count 136
Sodium 136
Potassium 3.5
Chloride 102
Carbon Dioxide 26
BUN 19
Creatinine 0.8
Glucose 126 H
Calcium 8.0 L
Vital Signs:
Vital Signs
Temp Pulse Resp BP Pulse Ox
99.6 F 84 16 85/47 92
10/07/24 07:45 10/07/24 11:08 10/07/24 07:45 10/07/24 11:08 10/07/24 11:08
I&O
10/06/24 10/07/24 10/08/24
06:59 06:59 06:59
Intake Total 960 / 960 980 / 980
Output Total 700 / 700
Balance 960 / 960 280 / 280
Physical Exam
-
General: No Apparent Distress, Appears Chronically Ill and Cachectic
HEENT: Normocephalic, Atraumatic and Moist Mucous Membranes
Respiratory: Decreased Breath Sounds; Negative Wheezes
Cardiac: Regular Rhythm and S1/S2; Negative Murmur, Rub or Gallop
GI: Soft, Nontender, Nondistended and Normal Bowel Sounds; Negative Organomegaly
Rectal: Deferred by Provider
Musculoskeletal: No Clubbing, No Cyanosis and No Edema
Skin: Negative Rash
Neuro: Awake, Alert, Oriented and Nonfocal/Grossly Intact
[2024-10-07] MEDS: PLETAL 100 MG PO (12:50)
[2024-10-07] MEDS: NSS 250 IV (12:51)
--- NOTE | 2024-10-07 14:03 | W.PN.UPDATE ---
Update Note
Progress Note Update
spoke to patient's . she reports he has struggled with cognitive decline for the past year or so and is only getting worse. mr cardoso was to see dr tsang on oct 23. mrs cardoso is coming to talk to dr grijalva. mr cardoso states has had 'an
anger issue' for many years. 'he took it out on me....' they have no children together but both have kids from a prior marriage.mrs cardoso was aware he may have a lung malignancy. mrs cardoso says she really is at the point where she can't care for
him anymore and she is in agreement with snf as a prelude to longer term placement. i did explain to her that there is a black box warning for patient with dementia who are prescribed atypical antipsychotics and told her mr cardoso currently taking
o.5 mg bid. he has not required prn's i did not discuss code status with her but would suggest that this might be raised with her at some point.
[2024-10-07] MEDS: LOVENOX SC ×2 (18:22→18:35)
[2024-10-07] MEDS: LIPITOR 10 MG PO (23:05)
[2024-10-07] MEDS: MELATONIN 5 MG PO (23:05)
[2024-10-07] MEDS: ASPIR LOW (ENTERIC COATED) 81 MG PO (23:05)
[2024-10-08] MEDS: PLETAL 100 MG PO ×2 (00:29→12:47)
[2024-10-08 07:05] VITALS: BP 137/52
[2024-10-08] MEDS: CIPRO 500 MG PO ×2 (09:15→20:34)
[2024-10-08] MEDS: SENOKOT-S 1 TABLET PO (09:16)
[2024-10-08] MEDS: TOPROL XL 50 MG PO ×2 (09:16→20:34)
[2024-10-08] MEDS: MIRALAX 17 GRAMS PO (09:16)
[2024-10-08] MEDS: RISPERDAL 0.5 MG PO ×2 (09:16→21:12)
[2024-10-08] MEDS: PEPCID 20 MG PO (09:16)
--- NOTE | 2024-10-08 11:24 | W.PN.UPDATE ---
Update Note
Progress Note Update
reviewed chart and spoke to nursing. the patient was sleeping and i did not see the benefit to him of waking him up.noted he is now dnr. the patient has not required prn medication. nursing tells me mostly he sleeps which is as i found him this am.
psych will sign off at this point as he will not likely benefit from talking with us and he is generally cooperative. please call us if you need us to return.
[2024-10-08 12:50] VITALS: BP 134/53; PULSE 83; O2SAT 92
[2024-10-08 13:00] VITALS: BP 134/53; PULSE 83; O2SAT 92
--- NOTE | 2024-10-08 13:15 | CM ---
Received notification from attending that patient is medically stable for discharge. Placed a call to Masood in admissions at [facility] who stated that she does not have bed availability this week. She also stated that as patient is still
within his Covid + window of 5 days, he would have to be free of that prior to discharge. Will need to discuss alternate SNF options with family.
Plan: Case management will continue to follow and assist with discharge planning. SNF when stable and bed available.
--- NOTE | 2024-10-08 13:26 | PTCARENOTE ---
pt not interested in getting out of bed this morning or eating breakfast. pt this afternoon was motivated to get to the chair and eat lunch around 1215 with PT/OT assistance to the chair.
[2024-10-08 15:00] VITALS: BP 115/58
--- NOTE | 2024-10-08 16:37 | W.PN.HOSP.TC ---
Today's Communication/Plan
-
Mental status stable at the baseline
On oral antibiotics.
Patient agree for group home facility placement.
Assessment / Plan
Assessment / Plan
IMPRESSION:
84 y.o here with generalized weakness after 1 week of increased falls at home and overall having had falls for about a month. Testing in ED is unrevealing of etiology. Possible PNA with cough (though chronic), fever and a upper lobe opacity
however procal negative. U/A is equivocal and not c/w acute cystitis. Labs do not show significant dehydration. Non-focal neuro exam and negative head CT. CT a/p showed a r 9th rib mildly displaced rib fracture and some narrowed celiac and sma
vessels.
Suspected left upper lobe mass versus infiltrate by CT scan
COVID-19 infection
Metabolic encephalopathy with agitation
Suspect acute on chronic ambulatory dysfunction with falls at home and multiple rib fractures
Stage 1 sacrum pressure injury, POA
Other conditions
Paroxysmal atrial fibrillation
CAD.
History of renal cell carcinoma status post right nephrectomy.
History of CVA.
Essential hypertension.
Suspect underlying dementia.
Dyslipidemia.
Carotid artery stenosis/PAD.
Ongoing tobacco use disorder
Plan
Acute COVID-19 infection .
-Symptomatic management.
-Unclear timeline and does hold off on Paxlovid
Left upper lobe mass on CT scan
History of severe tobacco abuse
Ongoing tobacco use disorder. Severe cachexia and wasting. Concern for undiagnosed malignancy.
Patient would be a poor candidate for any invasive diagnostic testing or treatment.
Acinetobacter bacteremia likely ? pna, possible postobstructive process
-Initiated on meropenem. Follow-up culture with no growth. Transition to Cipro to complete 7-day course of antibiotics through 10/10
-Unclear source of infection. ? pna. no recent procedure.
-Follow-up on the susceptibility results. Follow-up on the surveillance culture data.
Weakness secondary to COVID-19 infection
-Encourage increased p.o. intake. May require SNF at discharge.
Toxic metabolic encephalopathy likely delirium
Resolved.
Mental status back to baseline.
Continue Risperdal.
Stop Zyprexa and as needed lorazepam
Falls and rib fracture - mildly displaced left 9th rib fracture. Unclear acuity.
- supportive measures and pain control
- CT chest as above
- orthostatics
- PT eval
Atrial fibrillation unknown chronicity
-Looking to record seems refused anticoagulation in the past
-Not on any rate control agents
Peripheral vascular disease
History of stroke
Left carotid stenosis
Coronary artery disease
DVT PPX - lovenox sq
Goals of care discussion with patient and patient's at the bedside
Patient would not wish any aggressive measures including CPR, invasive ventilation.
CODE STATUS DNR
Anticipated Discharge: Within 24 hours
Subjective/Interval History
-
Date of Service: October 08, 2024
Objective Data
-
Vital Signs:
Vital Signs
Temp Pulse Resp BP Pulse Ox
97.8 F 77 16 115/58 93
10/08/24 15:00 10/08/24 15:00 10/08/24 15:00 10/08/24 15:00 10/08/24 15:00
I&O
10/07/24 10/08/24 10/09/24
06:59 06:59 06:59
Intake Total 980 / 980 660 / 660
Output Total 700 / 700 400 / 400
Balance 280 / 280 260 / 260
Physical Exam
-
General: No Apparent Distress, Appears Chronically Ill and Cachectic
HEENT: Normocephalic, Atraumatic and Moist Mucous Membranes
Respiratory: Decreased Breath Sounds; Negative Wheezes
Cardiac: Regular Rhythm and S1/S2; Negative Murmur, Rub or Gallop
GI: Soft, Nontender, Nondistended and Normal Bowel Sounds; Negative Organomegaly
Rectal: Deferred by Provider
Musculoskeletal: No Clubbing, No Cyanosis and No Edema
Skin: Negative Rash
Neuro: Awake, Alert, Oriented and Nonfocal/Grossly Intact
[2024-10-08] MEDS: LOVENOX SC (18:22)
[2024-10-08] MEDS: SENOKOT-S PO (18:22)
--- NOTE | 2024-10-08 18:22 | PTCARENOTE ---
pt refusing 1800 meds.
[2024-10-08] MEDS: MELATONIN 5 MG PO (21:11)
[2024-10-08] MEDS: ASPIR LOW (ENTERIC COATED) 81 MG PO (21:12)
[2024-10-08] MEDS: LIPITOR 10 MG PO (21:12)
[2024-10-08 23:05] VITALS: BP 147/68
[2024-10-09] MEDS: PLETAL PO ×2 (01:31→23:39)
[2024-10-09 07:05] VITALS: BP 157/58
[2024-10-09] MEDS: CIPRO 500 MG PO ×2 (09:58→20:48)
[2024-10-09] MEDS: RISPERDAL 0.5 MG PO ×2 (09:58→21:00)
[2024-10-09] MEDS: SENOKOT-S 1 TABLET PO (09:58)
[2024-10-09] MEDS: PEPCID 20 MG PO (09:58)
[2024-10-09] MEDS: MIRALAX 17 GRAMS PO (09:59)
[2024-10-09] MEDS: TOPROL XL 50 MG PO ×2 (09:59→20:48)
--- NOTE | 2024-10-09 10:57 | W.PN.ID1 ---
Date of Service
Date of Service: October 09, 2024
Today's Communication
- switch to ciprofloxacin to complete a 7 day total course of treatment 10/04-10/10
- stable for dc from ID perspective
medium term prognosis guarded with profound cachexia, weakness and suspected malignancy. Pulmonary service planning outpatient workup.
ID service will no longer actively follow this patient please recall for further questions
Assessment / Plan
Covid Infection - mild saturating 100% on room air
Acinetobacter Bacteremia
Cachexia (profound)/FTT
- repeat blood cultures x2 no growth to date
- QTc acceptable
- switch to ciprofloxacin to complete a 7 day total course of treatment 10/04-10/10
- stable for dc from ID perspective
medium term prognosis guarded with profound cachexia, weakness and suspected malignancy. Pulmonary service planning outpatient workup.
ID service will no longer actively follow this patient please recall for further questions
Chief Complaint
-: Bacteremia
Subjective / Review of Systems
afebrile
bp stable
repeat blood cultures finalized negative
no complaints
Vital Signs / Physical Exam
Vital Signs
Vital Signs
Temp Pulse Resp BP Pulse Ox
97.6 F 66 16 157/58 95
10/09/24 07:05 10/09/24 07:05 10/09/24 07:05 10/09/24 09:59 10/09/24 10:50
Physical Exam
Constitutional: No Acute Distress and Chronically Ill
Cardiovascular: Regular Rate and S1/S2; Negative Murmur or Rub
Pulmonary: Clear and Symmetric; Negative Wheezes or Rales
Gastrointestinal: Soft, Non Tender, Non Distended and Normal Bowel Sounds
Skin: Warm and Dry; Negative Rash or Jaundice
Objective Data
Lab Data
Lab Results
10/07/24 06:14
10/07/24 06:14
PT 14.1 Sec (11.4-14.6) 10/01/24 23:11
INR 1.04 10/01/24 23:11
APTT 35.2 Sec (23.4-35.0) H 10/01/24 23:11
Estimated Creat Clear 51 ml/min 10/07/24 06:14
Lactic Acid 1.3 mmol/L (0.7-2.0) 10/01/24 23:11
Total Bilirubin 1.0 mg/dl (0.2-1.3) 10/01/24 23:11
AST 15 U/L (17-59) L 10/01/24 23:11
ALT < 10 U/L (0-50) 10/01/24 23:11
Alkaline Phosphatase 106 U/L (38-126) 10/01/24 23:11
Most recent labs reviewed.
Micro Results:
10/01/24 23:11 Blood Culture - Final
Blood/Venous Acinetobacter lwoffii
Gram Stain - Final
10/04/24 05:27 Blood Culture - Final
Blood/Venous No Growth - Final Report
10/03/24 22:29 Blood Culture - Final
Blood/Venous No Growth - Final Report
10/01/24 23:11 Blood Culture - Final
Blood/Venous No Growth - Final Report
10/01/24 23:55 Urine Culture - Final
Urine NO GROWTH
10/02/24 05:26 Influenza Types A & B ([facility]EROME) - Final
Nasal Swab Negative for Influenza A & B, NAAT
Negative results must be combined with clinical observations
and patient history.
Nucleic Acid Amplification test (NAAT)performed on the
[employer] platform.
[2024-10-09 12:30] VITALS: BP 138/67; PULSE 82; O2SAT 92
--- NOTE | 2024-10-09 12:49 | CM ---
CM reviewed chart, patient medically stable for discharge pending placement. Call placed to patients , Mervat, additional referrals to [facility], [facility], and [facility]. Patient will require insurance
auth, ambulance transport. CM will continue to follow for all discharge planning needs.
Plan; SNF pending accepting facility, additional referrals placed, will need insurance auth, will need ambulance transport.
[2024-10-09] MEDS: PLETAL 100 MG PO (13:34)
--- NOTE | 2024-10-09 14:10 | W.PN.HOSP.TC ---
Today's Communication/Plan
-
Medically optimized for discharge to long term facility pending bed availability
Assessment / Plan
Assessment / Plan
IMPRESSION:
84 y.o here with generalized weakness after 1 week of increased falls at home and overall having had falls for about a month. Testing in ED is unrevealing of etiology. Possible PNA with cough (though chronic), fever and a upper lobe opacity
however procal negative. U/A is equivocal and not c/w acute cystitis. Labs do not show significant dehydration. Non-focal neuro exam and negative head CT. CT a/p showed a r 9th rib mildly displaced rib fracture and some narrowed celiac and sma
vessels.
Suspected left upper lobe mass versus infiltrate by CT scan
COVID-19 infection
Metabolic encephalopathy with agitation
Suspect acute on chronic ambulatory dysfunction with falls at home and multiple rib fractures
Stage 1 sacrum pressure injury, POA
Other conditions
Paroxysmal atrial fibrillation
CAD.
History of renal cell carcinoma status post right nephrectomy.
History of CVA.
Essential hypertension.
Suspect underlying dementia.
Dyslipidemia.
Carotid artery stenosis/PAD.
Ongoing tobacco use disorder
Plan
Acute COVID-19 infection .
-Symptomatic management.
-Unclear timeline and does hold off on Paxlovid
Left upper lobe mass on CT scan
History of severe tobacco abuse
Ongoing tobacco use disorder. Severe cachexia and wasting. Concern for undiagnosed malignancy.
Patient would be a poor candidate for any invasive diagnostic testing or treatment.
Acinetobacter bacteremia likely ? pna, possible postobstructive process
-Initiated on meropenem. Follow-up culture with no growth. Transition to Cipro to complete 7-day course of antibiotics through 10/10
-Unclear source of infection. ? pna. no recent procedure.
Weakness secondary to COVID-19 infection
-Encourage increased p.o. intake.
Pending discharge to skilled rehab
Toxic metabolic encephalopathy likely delirium
Resolved.
Mental status back to baseline.
Continue Risperdal.
Stop Zyprexa and as needed lorazepam
Falls and rib fracture - mildly displaced left 9th rib fracture. Unclear acuity.
- supportive measures and pain control
- CT chest as above
- orthostatics
- PT eval
Atrial fibrillation unknown chronicity
-Declined thromboembolic prophylaxis/anticoagulation in the past
-Not on any rate control agents
Peripheral vascular disease
History of stroke
Left carotid stenosis
Coronary artery disease
DVT PPX - lovenox sq
Goals of care discussion with patient and patient's at the bedside
Patient would not wish any aggressive measures including CPR, invasive ventilation.
CODE STATUS DNR
Anticipated Discharge: Within 24 hours
Subjective/Interval History
-
Date of Service: October 09, 2024
Objective Data
-
Vital Signs:
Vital Signs
Temp Pulse Resp BP Pulse Ox
97.6 F 66 16 157/58 95
10/09/24 07:05 10/09/24 07:05 10/09/24 07:05 10/09/24 09:59 10/09/24 10:50
I&O
10/08/24 10/09/24 10/10/24
06:59 06:59 06:59
Intake Total 660 / 660 480 / 480
Output Total 400 / 400 525 / 525
Balance 260 / 260 -45 / -45
Physical Exam
-
General: No Apparent Distress, Appears Chronically Ill and Cachectic
HEENT: Normocephalic, Atraumatic and Moist Mucous Membranes
Respiratory: Decreased Breath Sounds; Negative Wheezes
Cardiac: Regular Rhythm and S1/S2; Negative Murmur, Rub or Gallop
GI: Soft, Nontender, Nondistended and Normal Bowel Sounds; Negative Organomegaly
Rectal: Deferred by Provider
Musculoskeletal: No Clubbing, No Cyanosis and No Edema
Skin: Negative Rash
Neuro: Awake, Alert, Oriented and Nonfocal/Grossly Intact
[2024-10-09 15:05] VITALS: BP 111/66
[2024-10-09] MEDS: LOVENOX SC (18:11)
[2024-10-09] MEDS: SENOKOT-S PO (18:16)
[2024-10-09] MEDS: LIPITOR 10 MG PO (21:00)
[2024-10-09] MEDS: MELATONIN 5 MG PO (21:00)
[2024-10-09] MEDS: ASPIR LOW (ENTERIC COATED) 81 MG PO (21:00)
[2024-10-10] VITALS: BP 138/63
--- NOTE | 2024-10-10 06:34 | PTCARENOTE ---
Patient said he doesn't need to go pee yet, but will go soon. Patient has urinal propped. He is refusing bladder scan.
[2024-10-10 07:05] VITALS: BP 159/58
[2024-10-10] MEDS: TOPROL XL 50 MG PO ×2 (08:35→21:14)
[2024-10-10] MEDS: CIPRO 500 MG PO ×2 (08:36→21:14)
[2024-10-10] MEDS: RISPERDAL 0.5 MG PO ×2 (08:36→21:14)
[2024-10-10] MEDS: SENOKOT-S 1 TABLET PO (08:36)
[2024-10-10] MEDS: PEPCID 20 MG PO (08:36)
[2024-10-10] MEDS: PLETAL 100 MG PO (12:12)
[2024-10-10] MEDS: MIRALAX 17 GRAMS PO (12:13)
--- NOTE | 2024-10-10 12:44 | W.PN.HOSP.TC ---
Today's Communication/Plan
-
SNF planning
Plan for OP palliative care
Assessment / Plan
Assessment / Plan
#Acute COVID-19 infection
-Has worn oxygen for comfort though no documented hypoxemia
-Symptomatic management.
-Unclear timeline and does hold off on Paxlovid
#Left upper lobe mass on CT scan
-History of severe tobacco abuse
-Ongoing tobacco use disorder. Severe cachexia and wasting. Concern for undiagnosed malignancy.
-Patient would be a poor candidate for any invasive diagnostic testing or treatment.
-Will provide palliative care follow-up at discharge
#Acinetobacter bacteremia likely ? pna, possible postobstructive process
-Initiated on meropenem. Follow-up culture with no growth. Transition to Cipro to complete 7-day course of antibiotics through 10/10
-Unclear source of infection. ? pna. no recent procedure.
#Weakness secondary to COVID-19 infection
-Encourage increased p.o. intake.
-Pending discharge to skilled rehab
#Toxic metabolic encephalopathy likely delirium
-Resolved, Mental status back to baseline.
-Continue Risperdal.
-Stop Zyprexa and as needed lorazepam
#Falls and rib fracture - mildly displaced left 9th rib fracture. Unclear acuity.
-supportive measures and pain control
-CT chest as above
-orthostatics
-PT eval
#Atrial fibrillation unknown chronicity
-Declined thromboembolic prophylaxis/anticoagulation in the past
-Not on any rate control agents
#Peripheral vascular disease
-History of stroke, Left carotid stenosis
-Also with peripheral, lower extremity disease
-Home meds include aspirin, cilostazol, statin
#Coronary artery disease s/p PCI
-Home meds include moderate intensity statin, aspirin, beta-mary
#Paroxysmal AF
-Not on anticoagulation, does take beta-mary
-No known history of ablation or EP intervention
-Heart rate appears normal
#H/O CVA
-No known residual deficits
-Likely related to carotid stenosis and AF
-Remains on statin and aspirin, not on DOAC
#Tobacco user
-Encourage cessation
#Severe protein caloric malnutrition
-BMI 15.2, likely in context of underlying malignancy with lung mass seen on CT
-Will start Ensure with meals and promote oral intake
-Likely hospice disposition and medium term timeframe
-OP palliative care follow-up as above
DVT PPX - lovenox sq
CODE STATUS: DNR
Disposition: Pending SNF placement, likely hospice selection with time
Goals of care discussion with patient and patient's at the bedside
Patient would not wish any aggressive measures including CPR, invasive ventilation.
Anticipated Discharge: 24 - 48 hours
Subjective/Interval History
-
Date of Service: October 10, 2024
Seen and examined at bedside. No acute events reported. AFVSS on room air. Patient asked for nasal cannula for comfort, no hypoxemia recorded
He states generally he feels okay, has fairly persistent cough
Denies other new complaints
Objective Data
-
Vital Signs:
Vital Signs
Temp Pulse Resp BP Pulse Ox
98.2 F 79 18 159/58 90
10/10/24 07:05 10/10/24 08:35 10/10/24 07:05 10/10/24 08:35 10/10/24 07:05
I&O
10/09/24 10/10/24 10/11/24
06:59 06:59 06:59
Intake Total 480 / 480 560 / 560
Output Total 525 / 525 275 / 275
Balance -45 / -45 285 / 285
Review of Systems
-
History Source: Patient
All other systems: Reviewed and negative
Physical Exam
-
General: Well Developed, Comfortable, Appears Chronically Ill and Cachectic
HEENT: Normocephalic, Atraumatic and Moist Mucous Membranes
Respiratory: Crackles and Non Labored Respirations; Negative Accessory Resp Muscle Use
Cardiac: Regular Rhythm and S1/S2; Negative Murmur, Rub or Gallop
GI: Soft, Nontender and Nondistended
Musculoskeletal: No Clubbing, No Cyanosis and No Edema
Skin: Warm, Dry and Normal Turgor; Negative Rash
Neuro: AO x 3 and Nonfocal/Grossly Intact
Psych: Calm
[2024-10-10 15:05] VITALS: BP 134/67
[2024-10-10] MEDS: LOVENOX SC (17:18)
[2024-10-10] MEDS: SENOKOT-S PO (17:18)
[2024-10-10] MEDS: ASPIR LOW (ENTERIC COATED) 81 MG PO (21:13)
[2024-10-10] MEDS: LIPITOR 10 MG PO (21:20)
[2024-10-10] MEDS: MELATONIN 5 MG PO (21:20)
[2024-10-10 23:32] VITALS: BP 102/54
[2024-10-10] MEDS: PLETAL PO (23:48)
[2024-10-11 07:05] VITALS: BP 148/51
[2024-10-11] MEDS: SENOKOT-S 1 TABLET PO ×2 (09:08→17:21)
[2024-10-11] MEDS: CIPRO 500 MG PO ×2 (09:08→20:25)
[2024-10-11] MEDS: PEPCID 20 MG PO (09:08)
[2024-10-11] MEDS: TOPROL XL 50 MG PO ×2 (09:08→20:30)
[2024-10-11] MEDS: RISPERDAL 0.5 MG PO ×2 (09:08→21:06)
[2024-10-11] MEDS: MIRALAX 17 GRAMS PO (09:09)
--- NOTE | 2024-10-11 12:06 | W.PN.HOSP.TC ---
Today's Communication/Plan
-
SNF planning
Assessment / Plan
Assessment / Plan
#Acute COVID-19 infection
-Has worn oxygen for comfort though no documented hypoxemia
-Symptomatic management.
-Unclear timeline, Paxlovid was deferred
-Remains on room air
#Left upper lobe mass on CT scan
-History of severe tobacco abuse
-Ongoing tobacco use disorder. Severe cachexia and wasting. Concern for undiagnosed malignancy.
-Patient would be a poor candidate for any invasive diagnostic testing or treatment.
-Will provide palliative care follow-up at discharge
#Acinetobacter bacteremia likely ? pna, possible postobstructive process
-Initiated on meropenem. Follow-up culture with no growth. Transition to Cipro to complete 7-day course
-Unclear source of infection. ? pna. no recent procedure.
-Completed course of antibiotics on 10/10
#Weakness secondary to COVID-19 infection
-Encourage increased p.o. intake.
-Pending discharge to skilled rehab
#Toxic metabolic encephalopathy likely delirium
-Resolved, Mental status back to baseline.
-Continue Risperdal.
-Stop Zyprexa and as needed lorazepam
#Falls and rib fracture - mildly displaced left 9th rib fracture. Unclear acuity.
-supportive measures and pain control
-CT chest as above
-orthostatics
-PT eval
#Atrial fibrillation unknown chronicity
-Declined thromboembolic prophylaxis/anticoagulation in the past
-Not on any rate control agents
#Peripheral vascular disease
-History of stroke, Left carotid stenosis
-Also with peripheral, lower extremity disease
-Home meds include aspirin, cilostazol, statin
#Coronary artery disease s/p PCI
-Home meds include moderate intensity statin, aspirin, beta-mary
#Paroxysmal AF
-Not on anticoagulation, does take beta-mary
-No known history of ablation or EP intervention
-Heart rate appears normal
#H/O CVA
-No known residual deficits
-Likely related to carotid stenosis and AF
-Remains on statin and aspirin, not on DOAC
#Tobacco user
-Encourage cessation
#Severe protein caloric malnutrition
-BMI 15.2, likely in context of underlying malignancy with lung mass seen on CT
-Will start Ensure with meals and promote oral intake
-Likely hospice disposition and medium term timeframe
-OP palliative care follow-up as above
DVT PPX - lovenox sq
CODE STATUS: DNR
Disposition: Pending SNF placement, likely hospice selection with time
Anticipated Discharge: Within 24 hours
Subjective/Interval History
-
Date of Service: October 11, 2024
Seen and examined at the bedside. No acute events reported overnight. AFVSS on room air
States he feels he is breathing better today.
Denies any new complaints
Objective Data
-
Vital Signs:
Vital Signs
Temp Pulse Resp BP Pulse Ox
98.5 F 65 16 148/51 93
10/11/24 07:05 10/11/24 07:05 10/11/24 07:05 10/11/24 07:05 10/11/24 11:47
I&O
10/10/24 10/11/24 10/12/24
06:59 06:59 06:59
Intake Total 560 / 560 360 / 360
Output Total 275 / 275 675 / 675
Balance 285 / 285 -315 / -315
Review of Systems
-
History Source: Patient
All other systems: Reviewed and negative
Physical Exam
-
General: No Apparent Distress, Comfortable and Cachectic
HEENT: Normocephalic, Atraumatic and Moist Mucous Membranes
Respiratory: Clear to Auscultation and Non Labored Respirations
Cardiac: Regular Rhythm and S1/S2; Negative Murmur, Rub or Gallop
GI: Soft, Nontender, Nondistended and Normal Bowel Sounds
Musculoskeletal: No Clubbing, No Cyanosis and No Edema
Skin: Warm, Dry and Normal Turgor; Negative Rash
Neuro: AO x 3 and Nonfocal/Grossly Intact
Psych: Calm
[2024-10-11] MEDS: PLETAL 100 MG PO ×2 (14:53→23:48)
[2024-10-11 15:05] VITALS: BP 171/59
[2024-10-11 16:35] VITALS: BP 171/59
[2024-10-11] MEDS: LOVENOX SC ×2 (17:19→17:24)
[2024-10-11] MEDS: LIPITOR 10 MG PO (21:05)
[2024-10-11] MEDS: MELATONIN 5 MG PO (21:05)
[2024-10-11] MEDS: ASPIR LOW (ENTERIC COATED) 81 MG PO (21:05)
[2024-10-11 23:53] VITALS: BP 125/86
[2024-10-12 07:20] VITALS: BP 105/37
[2024-10-12] MEDS: MIRALAX 17 GRAMS PO (08:21)
[2024-10-12] MEDS: PEPCID 20 MG PO (08:21)
[2024-10-12] MEDS: TOPROL XL 50 MG PO ×2 (08:22→20:58)
[2024-10-12] MEDS: CIPRO 500 MG PO ×2 (08:22→20:49)
[2024-10-12] MEDS: RISPERDAL 0.5 MG PO ×2 (08:23→21:00)
[2024-10-12] MEDS: SENOKOT-S 1 TABLET PO ×2 (08:23→16:07)
[2024-10-12] MEDS: PLETAL 100 MG PO (11:38)
[2024-10-12 14:25] VITALS: BP 131/63; PULSE 58; O2SAT 95
[2024-10-12 15:05] VITALS: BP 148/71
--- NOTE | 2024-10-12 15:07 | CM ---
Met with patient at bedside and discussed bed availability. agreeable. Left message for Mervat.
Bed available at [facility]-NPI #: [id number], Dr. Moses Brownlee NPI #: [id number]
PT/OT to eval today for authorization
CM will start authorization process for SNF
PLAN: [facility], once authorization is approved
Report #: [phone]
Fax #: [phone]
[2024-10-12 15:17] VITALS: BP 133/69; PULSE 83
--- NOTE | 2024-10-12 16:14 | W.PN.HOSP.TC ---
Today's Communication/Plan
-
Pending placement
Assessment / Plan
Assessment / Plan
#Acute COVID-19 infection
-Has worn oxygen for comfort though no documented hypoxemia
-Symptomatic management.
-Unclear timeline, Paxlovid was deferred
-Remains on room air
#Left upper lobe mass on CT scan
-History of severe tobacco abuse
-Ongoing tobacco use disorder. Severe cachexia and wasting. Concern for undiagnosed malignancy.
-Patient would be a poor candidate for any invasive diagnostic testing or treatment.
-Will provide palliative care follow-up at discharge
#Acinetobacter bacteremia likely ? pna, possible postobstructive process
-Initiated on meropenem. Follow-up culture with no growth. Transition to Cipro to complete 7-day course
-Unclear source of infection. ? pna. no recent procedure.
-Completed course of antibiotics on 10/10
#Weakness secondary to COVID-19 infection
-Encourage increased p.o. intake.
-Pending discharge to skilled rehab
#Toxic metabolic encephalopathy likely delirium
-Resolved, Mental status back to baseline.
-Continue Risperdal.
-Stop Zyprexa and as needed lorazepam
#Falls and rib fracture - mildly displaced left 9th rib fracture. Unclear acuity.
-supportive measures and pain control
-CT chest as above
-orthostatics
-PT eval
#Atrial fibrillation unknown chronicity
-Declined thromboembolic prophylaxis/anticoagulation in the past
-Not on any rate control agents
#Peripheral vascular disease
-History of stroke, Left carotid stenosis
-Also with peripheral, lower extremity disease
-Home meds include aspirin, cilostazol, statin
#Coronary artery disease s/p PCI
-Home meds include moderate intensity statin, aspirin, beta-mary
#Paroxysmal AF
-Not on anticoagulation, does take beta-mary
-No known history of ablation or EP intervention
-Heart rate appears normal
#H/O CVA
-No known residual deficits
-Likely related to carotid stenosis and AF
-Remains on statin and aspirin, not on DOAC
#Tobacco user
-Encourage cessation
#Severe protein caloric malnutrition
-BMI 15.2, likely in context of underlying malignancy with lung mass seen on CT
-Will start Ensure with meals and promote oral intake
-Likely hospice disposition and medium term timeframe
-OP palliative care follow-up as above
DVT PPX - lovenox sq
CODE STATUS: DNR
Disposition: Pending SNF placement, likely hospice selection with time
Anticipated Discharge: 24 - 48 hours
Subjective/Interval History
-
Date of Service: October 12, 2024
Objective Data
-
Labs:
Laboratory Results
10/12/24
06:00
WBC Cancelled
Hgb Cancelled
Hct Cancelled
Plt Count Cancelled
Sodium Cancelled
Potassium Cancelled
Chloride Cancelled
Carbon Dioxide Cancelled
BUN Cancelled
Creatinine Cancelled
Glucose Cancelled
Calcium Cancelled
Vital Signs:
Vital Signs
Temp Pulse Resp BP Pulse Ox
97.8 F 69 20 105/37 92
10/12/24 07:20 10/12/24 08:22 10/12/24 07:20 10/12/24 08:22 10/12/24 10:43
I&O
10/11/24 10/12/24 10/13/24
06:59 06:59 06:59
Intake Total 360 / 360 300 / 300
Output Total 675 / 675 400 / 400
Balance -315 / -315 -100 / -100
Physical Exam
-
General: No Apparent Distress, Comfortable and Cachectic
HEENT: Normocephalic, Atraumatic and Moist Mucous Membranes
Respiratory: Clear to Auscultation and Non Labored Respirations
Cardiac: Regular Rhythm and S1/S2; Negative Murmur, Rub or Gallop
GI: Soft, Nontender, Nondistended and Normal Bowel Sounds
Musculoskeletal: No Clubbing, No Cyanosis and No Edema
Skin: Warm, Dry and Normal Turgor; Negative Rash
Neuro: AO x 3 and Nonfocal/Grossly Intact
Psych: Calm
--- NOTE | 2024-10-12 16:25 | CM ---
Insurance authorization initiated with [facility] for skilled rehab
Spoke with Ralph
Pended to [facility] for review
Pended reference # [id number]
Approved Ambulance authorization with [facility]
Auth# [id number]
[2024-10-12] MEDS: LOVENOX SC (17:06)
--- NOTE | 2024-10-12 17:39 | PTCARENOTE ---
Patient refusing ordered labs today, MD aware. Patient with no documented BM in chart despite ordered bowel regimen. MD made aware, stated patient told MD he had BM yesterday when MD in room on rounds. Patient AAOX2 - disoriented to time, forgetful
at times. This RN clarified with , MD reiterated patient stated he had BM yesterday and to continue ordered bowel regimen, no new orders at this time.
[2024-10-12] MEDS: ASPIR LOW (ENTERIC COATED) 81 MG PO (20:59)
[2024-10-12] MEDS: MELATONIN 5 MG PO (21:00)
[2024-10-12] MEDS: LIPITOR 10 MG PO (21:00)
[2024-10-12] MEDS: TYLENOL 650 MG PO (21:03)
[2024-10-12] MEDS: ProAIR HFA INHALER 1 PUFF INH (21:16)
[2024-10-12] MEDS: ROBITUSSIN DM 5 ML PO (22:15)
[2024-10-12] MEDS: PLETAL PO (23:08)
[2024-10-12 23:22] VITALS: BP 116/61
[2024-10-13 07:23] VITALS: BP 138/88
[2024-10-13] MEDS: MIRALAX 17 GRAMS PO (07:31)
[2024-10-13] MEDS: CIPRO 500 MG PO (07:31)
[2024-10-13] MEDS: PEPCID 20 MG PO (07:31)
[2024-10-13] MEDS: RISPERDAL 0.5 MG PO (07:31)
[2024-10-13] MEDS: SENOKOT-S 1 TABLET PO (07:31)
[2024-10-13] MEDS: TOPROL XL 50 MG PO (07:31)
--- NOTE | 2024-10-13 07:42 | PTCARENOTE ---
Patient taken off COVID precautions and placed on standard precautions per infection prevention.
--- NOTE | 2024-10-13 09:35 | CM ---
Addendum entered by Maggie Rodriguez 10/13/24 10:18:
IMM explained & signed. In chart
Addendum entered by Maggie Rodriguez 10/13/24 10:01:
Left message with Mervat.
Original Note:
Insurance approval for [facility] Reference #: [id number]
Start date 10/13/24----NRD 10/19/24
Call with updates at [phone]
Ambulance [facility] approval #: [id number]
Called [facility] liaison and updated with approval information
tt Dr. Denis
[facility]
Report #: [phone]
Fax #: [phone]
ambulance forms on chart
--- NOTE | 2024-10-13 11:31 | PTOTSP ---
ST Follow-Up
Pt currently presenting with clinical signs of a fairly functional oral phase of swallowing with suspected moderate to severely impaired pharyngeal phase swallowing impairments as evidenced by coughing following ingestion of both solids and liquids,
breathy vocal quality indicative of inadequate vocal fold adduction, and weak reflexive cough.
Recommendations:
- NPO except meds crushed in puree.
- Video fluoroscopic swallow study (VFSS) for more objective information about pt's swallowing function.
- OB/GYN to provide further recommendations pending completion of VFSS.
- Consider palliative care and/or hospice consult if pt opts not to pursue VFSS.
[2024-10-13] MEDS: PLETAL 100 MG PO (12:13)
--- NOTE | 2024-10-13 12:16 | W.DS.TRANS ---
DC Summary - Farm Assistant
-
Discharge Instructions:
Sleep Apnea Risk Intermediate
Discharge Diagnosis/Procedures Suspected left upper lobe mass versus infiltrate
by CT scan
COVID-19 infection
Metabolic encephalopathy with agitation
Suspect acute on chronic ambulatory dysfunction
with falls at home and multiple rib fractures
Stage 1 sacrum pressure injury, POA
Other conditions
Paroxysmal atrial fibrillation
CAD.
History of renal cell carcinoma status post
right nephrectomy.
History of CVA.
Essential hypertension.
Suspect underlying dementia.
Dyslipidemia.
Carotid artery stenosis/PAD.
Ongoing tobacco use disorder
Diet Regular
Activity As tolerated
Driving Restrictions No driving
Bathing Restrictions None
Blood Work none
Others Tests Possible lung biopsy of lung mass seen on CT
scan
Other Services PT,OT
Instructions:
Stand-Alone Forms:
Changes to Home Medications: Yes
Discharge Medications:
DC Medications w/original date entered in [facility]
aspirin 81 mg tablet,delayed release 81 mg PO HS Blood Clot Prevention/Tx 09/30/12
simvastatin 20 mg tablet 20 mg PO HS High Cholesterol 05/02/15
cilostazol 100 mg tablet 100 mg PO BID Blood Clot Prevention/Tx 08/12/19
metoprolol succinate 50 mg tablet,extended release 24 hr (Toprol XL) 50 mg PO BID Blood Pressure 10/02/24
famotidine 20 mg tablet 20 mg PO DAILY #20 tabs 10/09/24
polyethylene glycol 3350 17 gram oral powder packet 17 g PO DAILY #30 ea 10/09/24
risperidone 0.5 mg tablet 0.5 mg PO DAILY #30 tabs 10/09/24
risperidone 0.5 mg tablet 0.5 mg PO HS #30 tabs 10/09/24
Home Medication Changes
Risperdone
Pending Results: No
[2024-10-13 15:19] VITALS: BP 146/74
--- NOTE | 2024-10-13 16:13 | PTCARENOTE ---
Patient discharged to [facility], transported by [facility]. This RN called report to Angy at facility, removed patient's IV and gathered belongings in room. Patient changed prior to transport. Vitals taken by tech stable.
== END 2024-10-13 16:16 | DRG 177 ==
LOC: 2 NORTH 09:03
PROVIDERS: Hospitalist; ADMITTING PHYSICIAN Internal Medicine; ATTENDING PHYSICIAN Internal Medicine; CONSULT PHYSICIAN Internal Medicine Critical Care Medicine; CONSULT PHYSICIAN Student in an Organized Health Care Education/Training Program; EMERGENCY PHYSICIAN Student in an Organized Health Care Education/Training Program; FAMILY PHYSICIAN Internal Medicine; OTHER PHYSICIAN Psychiatry & Neurology Psychiatry
DX: U07.1 COVID-19 (principal); E43 Unspecified severe protein-calorie malnutrition; J18.9 Pneumonia, unspecified organism; G92.8 Other toxic encephalopathy; S22.42XA Multiple fractures of ribs, left side, initial encounter for closed fracture; R64 Cachexia; R78.81 Bacteremia; Z68.1 Body mass index [BMI] 19.9 or less, adult; C34.12 Malignant neoplasm of upper lobe, left bronchus or lung; F01.518 Vascular dementia, unspecified severity, with other behavioral disturbance; R29.6 Repeated falls; I48.0 Paroxysmal atrial fibrillation; I65.22 Occlusion and stenosis of left carotid artery; I73.9 Peripheral vascular disease, unspecified; F17.200 Nicotine dependence, unspecified, uncomplicated; E78.00 Pure hypercholesterolemia, unspecified; I10 Essential (primary) hypertension; I25.10 Atherosclerotic heart disease of native coronary artery without angina pectoris; J43.9 Emphysema, unspecified; R54 Age-related physical debility; F51.04 Psychophysiologic insomnia; R62.7 Adult failure to thrive; B96.89 Other specified bacterial agents as the cause of diseases classified elsewhere; L89.151 Pressure ulcer of sacral region, stage 1; E78.5 Hyperlipidemia, unspecified; R32 Unspecified urinary incontinence; G93.89 Other specified disorders of brain; W19.XXXA Unspecified fall, initial encounter; Y93.9 Activity, unspecified; Y92.009 Unspecified place in unspecified non-institutional (private) residence as the place of occurrence of the external cause; Z66 Do not resuscitate; Z85.528 Personal history of other malignant neoplasm of kidney; Z86.73 Personal history of transient ischemic attack (TIA), and cerebral infarction without residual deficits; Z87.440 Personal history of urinary (tract) infections; Z79.82 Long term (current) use of aspirin; Z95.5 Presence of coronary angioplasty implant and graft; Z78.1 Physical restraint status
CPT/HCPCS: 70450; 71045; 71250; 74177; 80048; 80053; 81003; 81015; 82550; 82962; 83605; 83690; 83880; 84145; 84443; 84484; 85025; 85027; 85610; 85730; 87040; 87086; 87149; 87186; 87205; 87502; 87811; 92526; 92610; 93005; 94640; 96374; 97110; 97116; 97163; 97164; 97166; 97530; 99285; J2358; Q9967

== ENCOUNTER 2024-10-29 09:24 | Emergency (ER) | payer OTHER, SELFPAY ==
[2024-10-29] VITALS (13 sets, daily range): BP systolic 94–146; BP diastolic 27–102
--- NOTE | 2024-10-29 09:53 | ED.CVA ---
History of Present Illness
General
Chief Complaint: CVA/TIA Symptoms
Source: ambulance crew
Time Seen by Provider: 10/29/24 09:48
Onset of Stroke Symptoms
Onset of symptoms known: No
Time pt last seen normal is known: No
History of Present Illness
History of Present Illness:
Patient brought to the emergency room for questionable facial droop. No facial droop identified here in the emergency room. Patient has a history of dementia and is not cooperative at the time of evaluation. No obvious complaints. Patient
refuses to answer to his name or where he lives etc. Review of information from his most recent hospitalization a couple weeks ago revealed that the patient was having significant decline in his cognitive abilities due to dementia. He has a known
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 He has known A-fib but is not anticoagulated due to his cognitive decline. He was recently treated for suspected urinary tract infection.
Past History
Past History
ED Past Medical History: CAD, Cancer (Kidney), CVA, HTN, Hypercholesterolemia and Other (Carotid stenosis, emyphysema)
ED Past Surgical History: Cardiac (Stents X1) and Urological (right nephrectomy)
Social History
Tobacco: Smoker
Alcohol: Occasional
Drug: None
Personal:
Living: with family
Phy Exam
Physical Exam
Physical Exam:
General: Awake, Alert, refuses to answer orientation questions. He appears to be in no distress but to be chronically ill and quite thin/cachectic
Vitals: unremarkable
Head: Atraumatic
Eyes: Pupils equal, EOMI
Throat: Airway intact, no exudates
Neck: Trachea midline
Lungs: Clear and equal b/l
Heart: Regular rate, no murmurs
Abd: Soft, Nontender, No pulsatile mass
Neuro: Patient does not have any obvious facial droop. He is a dentulous. He moves all extremities. He does not want to answer questions about sensation or follow commands such as [id number] etc.
Skin: Warm, dry, no rash
Extremities: pulses equal b/l, no edema
Course
Orders/Labs/Results
Orders:
Orders
10/29/24 09:37
Speech Screening from Jeri Routine
Speech Therapy Eval & Treat Urgent
10/29/24 09:40
Chest X-ray Portable [CR Chest Portable - 1 View] Urgent
Comment:
Reason For Exam: cough
Reason Study Needs to be Portable: Unable to Transport
10/29/24 09:53
CT Head W/o Iv Contrast Urgent
Comment:
Reason For Exam: altered mental status
Complete Blood Count/With Diff Urgent
Comprehensive Metabolic Panel Urgent
Influenza A+B Rapid Molecular Urgent
MILA Source: Nasal Swab
Specimen Description:
Abnormal Lab Results
10/29/24
09:53
RBC 3.27 L 10^6/uL
(4.70-6.10)
Hgb 9.0 L g/dL
(13.0-18.0)
Hct 27.5 L %
(39.0-52.0)
MCHC 32.7 L g/dL
(33.0-37.0)
RDW 15.4 H %
(11.5-14.5)
Absolute Lymphs (auto) 1.0 L 10^3/uL
(1.2-3.4)
Absolute Monos (auto) 0.7 H 10^3/uL
(0.1-0.6)
Lymphocytes % 18.9 L %
(20.5-51.1)
Monocytes % 13.3 H %
(1.7-9.3)
Glucose 116 H mg/dl
(70-99)
Total Bilirubin 1.4 H mg/dl
(0.2-1.3)
Total Protein 5.3 L g/dl
(6.3-8.2)
Albumin 2.7 L g/dl
(3.5-5.0)
10/29/24 09:53
10/29/24 09:53
Vital Signs
Initial and Last Documented VS:
Initial Vital Signs
Temp Pulse Resp BP Pulse Ox
98.6 F 81 18 134/53 95
10/29/24 09:27 10/29/24 09:27 10/29/24 09:10/29/24 09:10/29/24 09:27
Last Documented Vital Signs
Temp Pulse Resp BP Pulse Ox
98.6 F 82 16 133/55 94
10/29/24 09:10/29/24 13:00 10/29/24 13:00 10/29/24 13:00 10/29/24 12:00
MDM/Problems Addressed
Differential Diagnosis Includes:
TIA, CVA, metabolic encephalopathy, electrode abnormality, baseline health
MDM/Problems Addressed:
Patient sent to the emergency room for some question of the right facial droop. Physical exam appears nonfocal here. He is a dentulous and so his mouth may appear somewhat asymmetric however everything moves normally. Patient not cooperative here
but is able to move all 4 extremities. Overall physical exam does not suggest any significant stroke. Theoretically the patient could have had a TIA or small stroke however he does not seem to have significant debilitation from it. Decision has
already been made to not anticoagulate the patient with Eliquis despite A-fib. Therefore it does not appear any medication changes would be in order given his dementia, predilection for falls and agitation. Therefore patient stable for discharge
back to his facility. Hospitalization is likely to worsen the patient's dementia and confusion with little to be gained.
*Radiology
Radiology exam reviewed: radiology read reviewed
*Pulse Oximetry
Patient hypoxic: no
*Work Station Support Specialist Interpretation
Rate: normal
Rhythm: a-fib
*Critical Care Note
Total Time (30-74mins, 75-104mins- exclusive of procedures): Not Applicable
ED Attending Note
-
Portions of this chart may have been created with voice recognition software.� Occasional wrong word or��sound alike� substitutions may have occurred due to the inherent limitations of voice recognition software.
Discharge Plan
Departure
Patient Disposition: Half-Way/SNF
Date of Disposition: 10/29/24
Time of Disposition: 11:23
Condition: Good
Discharge Problem:
Dementia
Instructions: Dementia - ED discharge instructions
Prescriptions:
No Action
aspirin 81 MG tablet,delayed release (DR/EC)
81 mg PO HS
simvastatin 20 MG tablet
20 mg PO HS
cilostazol 100 MG tablet
100 mg PO BID
metoprolol succinate [Toprol XL] 50 mg Tablet Extended Release 24 Hr
50 mg PO BID
polyethylene glycol 3350 17 gram Powder In Packet
17 g PO DAILY Qty: 30 0RF
famotidine 20 mg Tablet
20 mg PO DAILY Qty: 20 0RF
risperidone 0.5 mg Tablet
0.5 mg PO HS Qty: 30 0RF
risperidone 0.5 mg Tablet
0.5 mg PO DAILY Qty: 30 0RF
Referrals:
Martin Montiel MD [Family Provider] -
Interventions
Interventions:
*Risk Screen - Suicide Last Done: 10/29/24 09:32
*General Assessment Last Done: 10/29/24 09:32
*Neglect/Abuse Screening Last Done: 10/29/24 09:32
ED- Fall Risk Assessment Last Done: 10/29/24 10:26
*ED COVID-19 Vaccine History Last Done: 10/29/24 09:32
ED- Pulmonary Assessment Last Done: 10/29/24 10:26
ED- Neurological Assessment Last Done: 10/29/24 10:26
ED- Cardiac Assessment Last Done: 10/29/24 10:26
ED Swallowing Screen Last Done: 10/29/24 09:36
Discharge Date and Time
Print Language: GEORGIAN
[2024-10-29 10:01] LABS: % Eosinophils 3.1 % (0-6); % Immature Granulocytes 0.2 % (0-0.5); % Lymphocytes 18.9 % (20.5-51.1); % Monocytes 13.3 % (1.7-9.3); % Neutrophils 63.5 % (42.2-75.2); Absolute Basophils 0.1 10^3/uL (0-0.2); Absolute Eosinophils 0.2 10^3/uL (0-0.7); Absolute Monocytes 0.7 10^3/uL (0.1-0.6); Absolute Neutrophils 3.3 10^3/uL (1.4-6.5); Hematocrit 27.5 % (39.0-52.0); Mean Corp Hgb Conc. 32.7 g/dL (33.0-37.0); Mean Corpuscular Hgb 27.5 pg (27.0-31.0); Mean Corpuscular Volume 84.1 fL (80.0-94.0); Nucleated Red Blood Cells % 0 % (-); Platelet Count 145 10^3/uL (130-400); Red Blood Cell Count 3.27 10^6/uL (4.70-6.10); Red Cell Dist. Width 15.4 % (11.5-14.5); White Blood Cell Count 5.2 10^3/uL (4.8-10.8)
[2024-10-29 10:17] LABS: ALT (SGPT) 18 U/L (0-50); AST (SGOT) 20 U/L (17-59); Albumin 2.7 g/dl (3.5-5.0); Alkaline Phosphatase 75 U/L (38-126); Blood Urea Nitrogen 11 mg/dl (9-20); Calcium 8.5 mg/dl (8.4-10.2); Carbon Dioxide 26 mmol/L (22-30); Chloride 107 mmol/L (98-107); Glucose 116 mg/dl (70-99); Potassium 4.2 mmol/L (3.5-5.1); Sodium 137 mmol/L (135-145); Total Bilirubin 1.4 mg/dl (0.2-1.3); Total Protein 5.3 g/dl (6.3-8.2); eGFR > 60.00
== END 2024-10-29 13:44 ==
LOC: EMR 09:24
PROVIDERS: EMERGENCY PHYSICIAN Emergency Medicine; FAMILY PHYSICIAN Family Medicine
DX: F03.911 Unspecified dementia, unspecified severity, with agitation (principal); E78.00 Pure hypercholesterolemia, unspecified; I10 Essential (primary) hypertension; I25.10 Atherosclerotic heart disease of native coronary artery without angina pectoris; I48.91 Unspecified atrial fibrillation; F17.200 Nicotine dependence, unspecified, uncomplicated; Z85.118 Personal history of other malignant neoplasm of bronchus and lung; Z85.528 Personal history of other malignant neoplasm of kidney; Z86.73 Personal history of transient ischemic attack (TIA), and cerebral infarction without residual deficits; Z90.5 Acquired absence of kidney; Z95.5 Presence of coronary angioplasty implant and graft
CPT/HCPCS: 99284; 70450; 71045; 80053; 85025; 87502

== ENCOUNTER 2024-11-02 14:54 | Emergency (ER) | payer OTHER, SELFPAY ==
[2024-11-02 14:58] VITALS: BP 140/52
--- NOTE | 2024-11-02 15:22 | ED.GENMED ---
History of Present Illness
General
Chief Complaint: Change in Mental Status
Source: family
Exam Limitations: clinical condition
Time Seen by Provider: 11/02/24 15:03
History of Present Illness
History of Present Illness:
84-year-old male noted to have a mental status change, difficulty speaking, being quiet. Not interacting. Noted by family today. Was here 4 days ago with the same. Son did say however the patient called him last night with speaking normally is
normally very talkative and interactive. This is not his norm.
Past History
Past History
ED Past Medical History: CAD, Cancer (Kidney), CVA, HTN, Hypercholesterolemia and Other (Carotid stenosis, emyphysema)
ED Past Surgical History: Cardiac (Stents X1) and Urological (right nephrectomy)
Social History
Tobacco: Smoker
Alcohol: Occasional
Drug: None
Personal:
Living: with family
Review of Systems
Review of Systems
Unable to obtain full review of systems at this time due to: due to acuity
All Other Systems: Not applicable
Phy Exam
Physical Exam
Physical Exam:
GENERAL: Alert and oriented x 2 in no apparent distress. Elderly and frail. Cachectic
EYE: Orbits normal.
NECK: Supple, no significant adenopathy.
ENT: Pharynx without erythema
CARDIAC: Irregular irregular mild midsystolic murmur
LUNGS: Clear breath sounds,normal
ABDOMEN: Soft, without focal tenderness or distention
NEUROLOGICAL: Alert and oriented x 2, grossly non-focal. Will speak simply at times. Other times will not speak. Follows simple commands.
SKIN: Warm and dry, no rash or lesion, no discoloration, skin intact.
MUSCULOSKELETAL: No edema,no deformity.Good color
PSYCH: Normal and appropriate interaction.
Course
Orders/Labs/Results
Orders:
Orders
11/02/24 15:10
CT Head W/o Iv Contrast Urgent
Comment:
Reason For Exam: Questionable decreased mentation and right facial
Cardiac Monitoring- Treatment ONCE
IV Insert/Care/Rem.- Treatment PRN
0.9% Sodium Chloride 500 ml [Nss] 500 ml IV BOLUS
Pulse Ox/cont/shift [RESP] Stat
Quantity: 1
11/02/24 15:11
Electrocardiogram (*1) Stat
Reason for Study: Other
Other Reason for Exam: neuro symptoms
EKG- Treatment ONCE
11/02/24 15:22
CXR2 [CR Chest - 2 Views ] Urgent
Comment:
Reason For Exam: cough
11/02/24 16:14
Basic Metabolic Panel Urgent
Complete Blood Count/With Diff Urgent
Influenza A+B Rapid Molecular Urgent
MILA Source: Nasal Swab
Specimen Description:
11/02/24 16:45
Lidocaine 2% [Lidocaine Uro-Jet 2%] 1 syringe .ROUTE .[facility]
11/02/24 17:11
Urinalysis Reflex To Culture Urgent
Date Specimen was Collected: 11/02/24
Time Specimen was Collected: 16:46
Urine Microscopic Reflex Cult Urgent
Abnormal Lab Results
11/02/24 11/02/24
16:14 17:11
RBC 3.28 L 10^6/uL
(4.70-6.10)
Hgb 9.0 L g/dL
(13.0-18.0)
Hct 28.5 L %
(39.0-52.0)
MCHC 31.6 L g/dL
(33.0-37.0)
RDW 16.1 H %
(11.5-14.5)
Absolute Lymphs (auto) 1.0 L 10^3/uL
(1.2-3.4)
Lymphocytes % 14.7 L %
(20.5-51.1)
Calcium 8.3 L mg/dl
(8.4-10.2)
Urine Urobilinogen 3+ A
(Neg - 1+)
Urine Albumin (Reflex) 2+ A
(Neg - Trace)
11/02/24 16:14
11/02/24 16:14
Vital Signs
Initial and Last Documented VS:
Initial Vital Signs
Temp Pulse Resp BP Pulse Ox
98.3 F 76 16 140/52 98
11/02/24 14:58 11/02/24 14:58 11/02/24 14:58 11/02/24 14:58 11/02/24 14:58
Last Documented Vital Signs
Temp Pulse Resp BP Pulse Ox
98.3 F 76 16 140/52 98
11/02/24 14:58 11/02/24 14:58 11/02/24 14:58 11/02/24 14:58 11/02/24 14:58
MDM/Problems Addressed
Differential Diagnosis Includes:
Patient with recurrent episodes of lethargy, aphasia, questionable right facial droop. Was here 4 days ago for the same. Per the son this is significantly different than his baseline. Multiple possible etiologies including recurrent TIA. He does
in atrial fibrillation and not anticoagulated. Encephalopathy. Dementia issues electrolyte issues infection although nothing clinically to support infection. Workup in progress
*Radiology
Radiology exam reviewed: radiology read reviewed (No acute findings on CT. Mass left upper lobe suspicious for malignancy)
*Pulse Oximetry
Patient hypoxic: no
*EKG
Interpreted by ED Provider?: Yes
Interpretation: abnormal
Comparison EKG: changes noted
Heart Rate: 72
Rate: normal
Rhythm: a-fib
[place]: normal axis
Interval: normal interval
QRS Pattern: normal QRS
Ischemia: non-specific ST changes
*Shopping Investigator Interpretation
Rate: normal
Interpretation: abnormal
Heart Rate: 70
Rhythm: a-fib
*Critical Care Note
Total Time (30-74mins, 75-104mins- exclusive of procedures): Not Applicable
Data Reviewed
Review of Other/Old Records Reveals: Labs, Records, Radiology Studies, Testing and Discharge Summary
Update Note
Update Note:
Testing is stable. Known mass left upper lobe. Did family is not pursuing malignancy workup at this time. Discussed issues or possible causes of patient's current symptoms. He woke and is back to baseline. He definitely digresses to previous
stress issues when he was younger. Family said he has been doing this. I suspect his current issues are likely related to some mild dementia issues. However I also explained I could not rule out a TIA or atypical seizure. I offered admission for
further workup versus outpatient workup. Family would prefer to have him go home and follow-up. Not unreasonable given that he is back to baseline
I had further discussion with the son concerning his issues and is comfortable with current management
ED Attending Note
-
Portions of this chart may have been created with voice recognition software.� Occasional wrong word or��sound alike� substitutions may have occurred due to the inherent limitations of voice recognition software.
Discharge Plan
Departure
Patient Disposition: Home (Routine Discharge)
Date of Disposition: 11/02/24
Time of Disposition: 18:20
Patient with high blood pressure during this ER visit?: Yes
Discharge Problem:
Transient mental status change
Instructions: Altered Mental Status (DC), BLOOD PRESSURE
Prescriptions:
No Action
aspirin 81 MG tablet,delayed release (DR/EC)
81 mg PO HS
simvastatin 20 MG tablet
20 mg PO HS
cilostazol 100 MG tablet
100 mg PO BID
metoprolol succinate [Toprol XL] 50 mg Tablet Extended Release 24 Hr
50 mg PO BID
polyethylene glycol 3350 17 gram Powder In Packet
17 g PO DAILY Qty: 30 0RF
famotidine 20 mg Tablet
20 mg PO DAILY Qty: 20 0RF
risperidone 0.5 mg Tablet
0.5 mg PO HS Qty: 30 0RF
risperidone 0.5 mg Tablet
0.5 mg PO DAILY Qty: 30 0RF
Referrals:
You Calderon DO [Active] - Next open appointment
Martin Montiel MD [Family Provider] -
Activity Restrictions/Additional Instructions:
I gave you the name of a oncologist if you elect to further pursue the mass in the left upper lobe
Please return with any concerns or issues, recurrent mental status change, new neurologic changes or any other concerning symptoms
Interventions
Interventions:
*Risk Screen - Suicide Last Done: 11/02/24 17:10
*Neglect/Abuse Screening Last Done: 11/02/24 17:10
ED- Fall Risk Assessment Last Done: 11/02/24 18:46
*Nursing Disposition Last Done: 11/02/24 19:17
ED- Neurological Assessment Last Done: 11/02/24 17:08
Discharge Date and Time
Discharge Date/Time: 11/02/24 19:18
Print Language: [place]
[2024-11-02] MEDS: NSS 500 IV (16:15)
[2024-11-02 16:26] LABS: % Basophils 0.7 % (0-2); % Immature Granulocytes 0.4 % (0-0.5); % Lymphocytes 14.7 % (20.5-51.1); % Monocytes 8.6 % (1.7-9.3); % Neutrophils 72.6 % (42.2-75.2); Absolute Basophils 0.1 10^3/uL (0-0.2); Absolute Eosinophils 0.2 10^3/uL (0-0.7); Absolute Monocytes 0.6 10^3/uL (0.1-0.6); Absolute Neutrophils 5.2 10^3/uL (1.4-6.5); Hematocrit 28.5 % (39.0-52.0); Mean Corp Hgb Conc. 31.6 g/dL (33.0-37.0); Mean Corpuscular Hgb 27.4 pg (27.0-31.0); Mean Corpuscular Volume 86.9 fL (80.0-94.0); Mean Platelet Volume 10.1 fL (7.4-10.4); Nucleated Red Blood Cells % 0 % (-); Platelet Count 155 10^3/uL (130-400); Red Blood Cell Count 3.28 10^6/uL (4.70-6.10); Red Cell Dist. Width 16.1 % (11.5-14.5); White Blood Cell Count 7.1 10^3/uL (4.8-10.8)
[2024-11-02 16:41] LABS: Blood Urea Nitrogen 13 mg/dl (9-20); Calcium 8.3 mg/dl (8.4-10.2); Carbon Dioxide 24 mmol/L (22-30); Chloride 105 mmol/L (98-107); Glucose 92 mg/dl (70-99); Potassium 4.3 mmol/L (3.5-5.1); Sodium 135 mmol/L (135-145); eGFR > 60.00
[2024-11-02 17:23] LABS: Urine Albumin 2+ (Neg - Trace); Urine Bilirubin Negative (Negative); Urine Character Clear (Clear); Urine Color Yellow; Urine Glucose Negative (Negative); Urine Ketone Negative (Negative); Urine Leukocyte Negative (Negative); Urine Nitrite Negative (Negative); Urine Occult Blood Negative (Negative); Urine Specific Gravity 1.015 (<1.030); Urine Urobilinogen 3+ (Neg - 1+)
[2024-11-02 17:33] LABS: Urine Red Blood Cell 0-2 /HPF (0-2)
[2024-11-02 17:34] LABS: Urine Hyaline Cast 0-2 /LPF (0-2)
[2024-11-02 18:28] VITALS: BMI 20.4
== END 2024-11-02 19:18 | disposition home or self-care (01) ==
LOC: EMR 14:54
PROVIDERS: EMERGENCY PHYSICIAN Emergency Medicine; FAMILY PHYSICIAN Family Medicine
DX: R41.82 Altered mental status, unspecified (principal); I10 Essential (primary) hypertension; F17.200 Nicotine dependence, unspecified, uncomplicated
CPT/HCPCS: 99285; 70450; 71046; 80048; 81003; 81015; 85025; 87502; 93005

== ENCOUNTER 2024-11-28 18:19 | Inpatient (IN) | payer MEDICARE, SELFPAY ==
[2024-11-28] VITALS (16 sets, daily range): BP systolic 88–155; BP diastolic 45–87; PULSE 76–110; BMI 15.7; BMI 15.0
[2024-11-28 13:57] LABS: % Basophils 0.5 % (0-2); % Eosinophils 0.8 % (0-6); % Immature Granulocytes 0.3 % (0-0.5); % Lymphocytes 11.2 % (20.5-51.1); % Monocytes 7.9 % (1.7-9.3); % Neutrophils 79.3 % (42.2-75.2); Absolute Basophils 0.1 10^3/uL (0-0.2); Absolute Eosinophils 0.1 10^3/uL (0-0.7); Absolute Lymphocytes 1.2 10^3/uL (1.2-3.4); Absolute Monocytes 0.8 10^3/uL (0.1-0.6); Absolute Neutrophils 8.2 10^3/uL (1.4-6.5); Hematocrit 24.4 % (39.0-52.0); Hemoglobin 7.8 g/dL (13.0-18.0); Mean Corpuscular Hgb 27.5 pg (27.0-31.0); Mean Corpuscular Volume 85.9 fL (80.0-94.0); Mean Platelet Volume 9.6 fL (7.4-10.4); Nucleated Red Blood Cells % 0 % (-); Platelet Count 215 10^3/uL (130-400); Red Blood Cell Count 2.84 10^6/uL (4.70-6.10); White Blood Cell Count 10.4 10^3/uL (4.8-10.8)
[2024-11-28 14:04] LABS: ALT (SGPT) < 10 U/L (0-50); AST (SGOT) 12 U/L (17-59); Albumin 2.5 g/dl (3.5-5.0); Alkaline Phosphatase 100 U/L (38-126); Blood Urea Nitrogen 19 mg/dl (9-20); Calcium 8.3 mg/dl (8.4-10.2); Carbon Dioxide 25 mmol/L (22-30); Chloride 106 mmol/L (98-107); Estimated Creatinine Clearance 52 ml/min; Glucose 179 mg/dl (70-99); Potassium 4.1 mmol/L (3.5-5.1); Sodium 137 mmol/L (135-145); Total Bilirubin 0.6 mg/dl (0.2-1.3); eGFR > 60.00
--- NOTE | 2024-11-28 14:10 | ED.GENMED ---
History of Present Illness
General
Chief Complaint: Fall
Source: patient
Exam Limitations: none
Time Seen by Provider: 11/28/24 14:04
Nursing documentation reviewed up to this point in time: agreed with
History of Present Illness
History of Present Illness:
Patient with history of dementia and atrial fibrillation, presents to ED from halfway after unwitnessed fall. Patient upon arrival, is alert and awake, but confused. Patient states that he was reaching for a piece of cake, when he lost
balance and fell forward, hitting top of his head against the floor. Denies any other injuries from the fall. Denies headache. Denies neck pain. Denies loss of sensation or weakness. Denies chest pain. Denies abdominal pain. Denies dizziness.
Denies loss of sensation or weakness. Patient does present with shortness of breath and intermittent cough, which patient states is from his previous smoking history.
Past History
Past History
ED Past Medical History: CAD, Cancer (Kidney), CVA, HTN, Hypercholesterolemia and Other (Carotid stenosis, emyphysema)
ED Past Surgical History: Cardiac (Stents X1) and Urological (right nephrectomy)
Social History
Tobacco: Smoker
Alcohol: Occasional
Drug: None
Personal:
Living: with family
Review of Systems
Review of Systems
Allergies reviewed?: Yes
All Other Systems: ROS reviewed and negative except as documented in HPI and ROS
Constitutional: Reports no symptoms
Respiratory: Reports cough; Denies trouble breathing
Cardiac: Reports no symptoms
ABD/GI: Reports no symptoms; Denies abdominal pain, nausea or vomiting
Musculoskeletal: Reports no symptoms
Skin: Reports no symptoms
Neurological: Reports no symptoms; Denies dizzy, headache or weakness
Phy Exam
Physical Exam
Physical Exam:
Physical Exam
General: no apparent distress, not acutely ill. afebrile
Head: nc/at. eomi
Neck: supple. normal range of motion. no midline tenderness
Heart: s1/s2 regular rate and rhythm
Lungs: no acute respiratory distress. clear bilaterally. chest wall nontender to palpation
Abdomen: normal bowel sounds. not tender. Rectal exam (ORQUIDEA Mills, at bedside): melena with heme positive stool
Neuro: alert and oriented x 1. no focal neurological deficits. normal speech.
Skin: no rash
Psychiatric: well kept. interactive and cooperative
Extremities: no edema. no calf tenderness.
Course
Orders/Labs/Results
Orders:
Orders
11/28/24 Breakfast
Clear Liquid
At Your Request: Limited Participation
11/28/24 13:41
Complete Blood Count/With Diff Urgent
Comprehensive Metabolic Panel Urgent
Magnesium Urgent
Comment: MAG ADDED ON BY FLOOR 2:30PM 11-28-24
11/28/24 14:02
Electrocardiogram (*1) Urgent
Reason for Study: Fatigue / Weakness
EKG- Treatment ONCE
11/28/24 14:26
Add On- LAB Urgent
Tests Added?: magnesium
CR Chest - 2 Views Urgent
Comment:
Reason For Exam: cough/sob
11/28/24 14:32
Type+Screen Urgent
11/28/24 17:28
Pantoprazole [Protonix IV] 40 mg IV NOW STA
11/28/24 18:06
Admit/Transfer Patient As Directed
Co-Sign Provider:
Level of Care: Inpatient admission
Assign to:: Telemetry
Physician / Group: kirk
Diagnosis: GI bleed
Reason for Telemetry: Arrhythmia
Date to Stop Telemetry: 12/01/24
Time to Stop Telemetry: 11:00
Reason for Hospitalization: GI bleed
Expected length of stay greater than two midnights?: Yes
ELOS- Estimated Length of Stay in days: 3
I certify the patient meets the requirements for IP care: Yes
PRN Pain Medication Management As Directed
May give lesser potent ordered pain med per pt: Yes
preference::
Protocol:: Medication orders for pain may be administered in a
manner that supports deferring to patient preference
when the pt is:
- Requesting an ordered lesser potent pain medication.
Least to most potent pain medications are defined
as: acetaminophen < NSAID < tramadol < opioids
(morphine, oxycodone, hydromorphone).
- Requesting a lesser dose of the same medication IF
ORDERED.
- Requesting a less intrusive route of administration
if both routes are prescribed by the provider (PO <
IV).
11/28/24 18:11
Code Status As Directed
Resuscitation Status: Do not resuscitate
Reached after discussion with pt or family/Healthcare POA: Yes
DNR Bracelet Application ONCE
11/28/24 18:15
Olanzapine [Zyprexa] 5 mg IM NOW STA
11/28/24 18:17
PSYCHIATRY CONSULT Routine
Consulting Provider: Greg Dumas
Was physician already notified: Yes
11/28/24 20:52
Metoprolol Xl [Toprol Xl] 50 mg PO BID
11/28/24 20:52
GASTROINTESTINAL CONSULT Routine
Consulting Provider: Mayank Alves
Was physician already notified: Yes
Activity As Directed
Activity Level: As Tolerated
INT (Intravenous Needle Therapy) As Directed
Comment: Place 2 IV catheters of the largest bore possible until stable
Orthostatic Vital Signs As Directed
Orthostatic VS Frequency: Now
Comment: then every four hours for twenty-four hours
Pneumatic Compression Sleeves As Directed
Type: Thigh high
Vital Signs As Directed
Frequency: Per unit guidelines
DX Deep Vein Thrombosis Video Routine
11/28/24 21:46
H&H Urgent
11/28/24 22:00
Aspirin Low Dose EC [Aspir Low (Enteric Coated)] 81 mg PO HS
Atorvastatin [Lipitor] 10 mg PO HS
11/29/24 06:00
B12 [Vitamin B12] IN AM
Basic Metabolic Panel IN AM
Complete Blood Count/No Diff IN AM
Ferritin IN AM
Folate IN AM
Iron IN AM
TIBC [Total Iron Binding] IN AM
Occupational Therapy Consult [Ot Eval And Treat] IN AM
Physical Therapy Consult [Pt Eval And Treat] IN AM
Activity Level: As Tolerated
11/29/24 08:00
Pantoprazole [Protonix IV] 40 mg IV BID
Polyethylene Glycol Powder [Miralax] 17 grams PO DAILY
11/30/24 06:00
Complete Blood Count/No Diff IN AM
12/01/24 06:00
Complete Blood Count/No Diff IN AM
12/01/24 11:00
DC Protocol for Telemetry ONCE
Abnormal Lab Results
11/28/24
13:41
RBC 2.84 L 10^6/uL
(4.70-6.10)
Hgb 7.8 L g/dL
(13.0-18.0)
Hct 24.4 L %
(39.0-52.0)
MCHC 32.0 L g/dL
(33.0-37.0)
RDW 16.0 H %
(11.5-14.5)
Absolute Neuts (auto) 8.2 H 10^3/uL
(1.4-6.5)
Absolute Monos (auto) 0.8 H 10^3/uL
(0.1-0.6)
Neutrophils % 79.3 H %
(42.2-75.2)
Lymphocytes % 11.2 L %
(20.5-51.1)
Glucose 179 H mg/dl
(70-99)
Calcium 8.3 L mg/dl
(8.4-10.2)
AST 12 L U/L
(17-59)
Total Protein 5.0 L g/dl
(6.3-8.2)
Albumin 2.5 L g/dl
(3.5-5.0)
11/28/24 13:41
11/28/24 13:41
Vital Signs
Initial and Last Documented VS:
Initial Vital Signs
Temp Pulse Resp BP Pulse Ox
98.3 F 86 16 91/46 99
11/28/24 13:11 11/28/24 13:11 11/28/24 13:11 11/28/24 13:11 11/28/24 13:11
Last Documented Vital Signs
Temp Pulse Resp BP Pulse Ox
97.7 F 76 18 150/60 98
11/28/24 21:26 11/28/24 21:26 11/28/24 21:26 11/28/24 21:26 11/28/24 21:26
MDM/Problems Addressed
MDM/Problems Addressed:
H/H noted with melena. Discussed with patient's daughter (Dannielle Spraks) - agrees with plan to admit for further evaluation and treatment. Agreeable with blood transfusion, if necessary. Pt however is DNR/DNI
Blood transfusion consent on the chart
*EKG
Interpreted by ED Provider?: Yes
EKG Intrepretation Date: 11/28/24
Heart Rate: 87
Rate: normal
Rhythm: a-fib
[place]: normal axis
Interval: normal interval
Ischemia: non-specific ST changes
*Critical Care Note
Total Time (30-74mins, 75-104mins- exclusive of procedures): Not Applicable
ED Attending Note
-
Portions of this chart may have been created with voice recognition software.� Occasional wrong word or��sound alike� substitutions may have occurred due to the inherent limitations of voice recognition software.
Discharge Plan
Departure
Patient Disposition: Admit
Date of Disposition: 11/28/24
Time of Disposition: 17:37
Presentation/result/management discussed w/ accepting MD/DO: Hospitalist
Discharge Problem:
Melena, Anemia
Interventions
Interventions:
*Risk Screen - Suicide Last Done: 11/28/24 13:11
*General Assessment Last Done: 11/28/24 13:11
*Neglect/Abuse Screening Last Done: 11/28/24 13:11
*ED- Fall Risk Assessment Last Done: 11/28/24 15:20
*Nursing Disposition Last Done: 11/28/24 20:47
ED-Musculoskeletal Assessment Last Done: 11/28/24 13:43
ED- Neurological Assessment Last Done: 11/28/24 13:43
ED-Skin Assessment Last Done: 11/28/24 13:43
Discharge Date and Time
Discharge Date/Time: 11/28/24 20:48
[2024-11-28 14:58] LABS: Magnesium 2.1 mg/dl (1.6-2.3)
[2024-11-28] MEDS: PROTONIX IV 40 MG IV (17:36)
--- NOTE | 2024-11-28 17:41 | W.PN.UPDATE ---
Update Note
Progress Note Update
This serves as an addendum to the H&P dictated by Jose Ocasio on 11/28/2024.
I saw and examined the patient.
The BOND TRADER or PA's note was reviewed and I agree with the note.
Comment:
Patient 84 years old male history of dementia, A-fib, CAD, PVD, CVA, kidney cancer, hypertension, dyslipidemia, protein calorie malnutrition, lung mass, presented to the hospital with generalized weakness fall and dyspnea. I cannot get any
information from patient due to dementia and agitation. ER reports melena. Hemoglobin noted to be 7.8 MCV 85.9 and last hemoglobin on 11/02 was 9; BUN 19 creatinine 0.8.
Physical exam:
General: Acute on chronically ill
HEENT: Normocephalic, Atraumatic and dry mucous Membranes
Respiratory: Clear to Auscultation; Negative Wheezes, Rales or Rhonchi
Cardiac: Irregular rate and rhythm and S1/S2
GI: Soft, Nontender and Nondistended
Neuro: Awake, Alert and Disoriented, moves spontaneously all 4 extremities, restless/agitated+
A/P:
Anemia, presumably symptomatic and concerns for GI bleed in a patient with dementia and hyperactive delirium--> IV PPI, monitor Hb and proceed to workup, blood transfusion if worsening, antipsychotic, GI and psych eval.
--- NOTE | 2024-11-28 17:48 | HPS.HSE ---
Family Physician
-
Family Physician: NOT KNOW UNKNOWN - PT DOES
Chief Complaint
-
fall
History of Present Illness
84 year old with PMH for dementia and atrial fibrillation, cardiac stents, hyperlipidemia presents to ED from long term after unwitnessed fall. patient stated, he was reaching out for something and lost the balance fell and hit his head on the
floor. denied MEJIA, dizzy or syncope. denied fever, chills,chest pain, sob. denied abdominal pain,n,v,d. denied dysuria or hematuria.
upon my evaluation patient is very upset and wants to go home. refusing to take any medication from patient.
Medical History
Past Medical History
Past Medical History: Reports Other
Additional Past Medical History:
Peripheral vascular disease
Coronary artery disease
Cardiomyopathy
Paroxysmal A-fib
Left carotid stenosis
Hyperlipidemia
CVA
Hypertension
Urinary bladder mass
Ventricular tachycardia
Chronic ischemic brain disease
Past Surgical History: Reports Other
Additional Past Surgical History:
Cardiac stent
Right nephrectomy
Social History
Tobacco: Former Smoker
Alcohol: Former
Drug: None
Personal: Single
Living: [facility]
Family History
Family History: Not pertinent
Allergies / Home Medications
Allergies reflects when Allergies were last updated in [employer].
Home Medications with original date entered in [employer]
Allergy/Medication List:
Allergies
Allergy/AdvReac Type Severity Reaction Status Date / Time
No Known Allergies Allergy Verified 11/28/24 13:13
Home Medications
aspirin 81 mg tablet,delayed release 81 mg PO HS Blood Clot Prevention/Tx 09/30/12
simvastatin 20 mg tablet 20 mg PO HS High Cholesterol 05/02/15
cilostazol 100 mg tablet 100 mg PO BID Blood Clot Prevention/Tx 08/12/19
metoprolol succinate 50 mg tablet,extended release 24 hr (Toprol XL) 50 mg PO BID Blood Pressure 10/02/24
famotidine 20 mg tablet 20 mg PO DAILY #20 tabs 10/09/24
polyethylene glycol 3350 17 gram oral powder packet 17 g PO DAILY #30 ea 10/09/24
acetaminophen 325 mg tablet (Tylenol) 650 mg PO Q6HPRN PRN mild pain 11/28/24
bisacodyl 10 mg rectal suppository (Dulcolax (bisacodyl)) 10 mg MD DAILYPRN PRN if no bm aftr mom 11/28/24
magnesium hydroxide 400 mg/5 mL oral suspension (Milk of Magnesia) 2,400 mg PO DAILYPRN PRN if no bm by 3rd day 11/28/24
Review of Systems
-
Constitutional: Reports No Symptoms
EENT: Reports No Symptoms
Respiratory: Reports No Symptoms
Cardiac: Reports No Symptoms
Abdomen/GI: Reports No Symptoms
: Reports No Symptoms
Musculoskeletal: Reports No Symptoms
Skin: Reports No Symptoms
Neurological: Reports No Symptoms
Endocrine: Reports No Symptoms
Hematologic/Lymphatic: Reports No Symptoms
Psych: Reports No Symptoms
Physical Exam
Vital Signs
Vital Signs
Temp Pulse Resp BP Pulse Ox
98.3 F 86 16 132/50 98
11/28/24 13:11 11/28/24 13:11 11/28/24 13:11 11/28/24 16:30 11/28/24 16:48
Physical Exam
General: Well Developed, Well Nourished and No Apparent Distress
HEENT: NormoCephalic, Moist mucous membranes and Atraumatic
Respiratory: Clear
Cardiac: S1/S2 and Regular Rhythm; No Murmur or Rub
GI: Soft, Non Tender, Non Distended and Normal Bowel Sounds; No Organomegaly
Rectal: Deferred by Provider
Musculoskeletal: No Clubbing, No Cyanosis and No Edema
Skin: No Rash
Neuro: Nonfocal/grossly intact
Psych: Agitated
Laboratory Results
-
11/28/24 13:41
11/28/24 13:41
Laboratory Results
Total Bilirubin 0.6 mg/dl (0.2-1.3) 11/28/24 13:41
AST 12 U/L (17-59) L 11/28/24 13:41
ALT < 10 U/L (0-50) 11/28/24 13:41
Alkaline Phosphatase 100 U/L (38-126) 11/28/24 13:41
Data Reviewed
-
Lab Data: Labs Reviewed by me
Impression/Plan
-
# Acute blood loss anemia likely from GI bleed
-Hemoglobin 7.8
-Blood transfusion consent on the chart
-Continue to trend hemoglobin, transfuse if hgb less than 7
-Clear liquid diet
-IV PPI BID
-GI consulted
#fall likely mechanical
-PT/OT consulted
-head CT
#hxt of Left upper lobe mass
-History of severe tobacco abuse
-chest x ray with the impression of Small left pleural effusion. New.Stable opacification in the left upper lung field likely a mass. Correlate with prior chest CT repor
#Atrial fibrillation permanent
-EKG with atrial fib
-Toprol continued
#Peripheral vascular disease
-History of stroke, Left carotid stenosis
-Also with peripheral, lower extremity disease
-Home meds include aspirin,l, statin
-hold cilostazol
#Coronary artery disease s/p PCI
-Home meds include moderate intensity statin, aspirin, beta-mary
#H/O CVA
-No known residual deficits
-Likely related to carotid stenosis and AF
-Remains on statin and aspirin,
#Severe protein caloric malnutrition
#Dementia/agitation
-psych consulted
-Zyprexa x1 now, if not improvement consider Seroquel at hs
DVT PPX - scd
CODE STATUS: DNR
--- NOTE | 2024-11-28 18:25 | PTCARENOTE ---
Pt found on floor by . Pt had bed alarm in place but no alarm went off. Pt states he hit his Left arm on the floor. Pt denies pain at this time. MD made aware. MD and RN helped pt off the floor and back to bed. Bed alarm placed on bed. Pt
re-oriented to unit and call abarca. Pt is agitated and states he wants to go home. RN explained to pt he's being admitted and why he's being admitted. Pt still insists on going home. Zyprexa 5MG ordered and given. See MAR. Charge nurse made
aware of pt's fall. PCT in room for 1:1. RN Teacher [facility] notified that pt will need a 1:1. Will continue to monitor.
[2024-11-28] MEDS: ZYPREXA 5 MG IM (18:34)
[2024-11-28] MEDS: ASPIR LOW (ENTERIC COATED) 81 MG PO (21:35)
[2024-11-28] MEDS: LIPITOR 10 MG PO (21:35)
[2024-11-28] MEDS: TOPROL XL 50 MG PO (21:35)
[2024-11-28 21:51] LABS: Hematocrit 27.5 % (39.0-52.0); Hemoglobin 8.7 g/dL (13.0-18.0)
--- NOTE | 2024-11-28 22:47 | VATNOTE ---
Rec'd. order for 2 large bore catheters, till stable. Pt. is currently a 1:1, I explained to pt. I needed to give him another per MD order. He immediately yelled, 'Why do people always want to touch my arms, no I don' t want to be stuck.' I
explained the need for the IV. feed inspection supervisor aware.
--- NOTE | 2024-11-28 23:02 | PTCARENOTE ---
Pt verbalized thoughts of suicide to PCT but doesn't have a plan. Enrique Alex made aware. Orders in for 1:1 for suicide. PCT remains at bedside.
--- NOTE | 2024-11-28 23:41 | W.PN.UPDATE ---
Update Note
Progress Note Update
Per RN, patient verbalized suicidal ideation. Evaluated patient, patient states he does have suicidal ideation but will not say if he has a plan. Order placed for 1:1, psychiatry previously consulted. Nursing supervisor cigarette making department aware. One to one at bedside.
[2024-11-29 00:22] VITALS: BP 128/87
[2024-11-29 03:45] VITALS: BP 160/65
--- NOTE | 2024-11-29 04:57 | PTCARENOTE ---
Pt continuously removing tele monitor. Will attempt to reapply. Also intermittently angry/ agitated with patient care. JASPREET Rausch made aware.
[2024-11-29 07:18] LABS: Hematocrit 28.5 % (39.0-52.0); Hemoglobin 8.8 g/dL (13.0-18.0); Mean Corp Hgb Conc. 30.9 g/dL (33.0-37.0); Mean Corpuscular Hgb 26.7 pg (27.0-31.0); Mean Corpuscular Volume 86.6 fL (80.0-94.0); Mean Platelet Volume 9.2 fL (7.4-10.4); Platelet Count 255 10^3/uL (130-400); Red Blood Cell Count 3.29 10^6/uL (4.70-6.10); Red Cell Dist. Width 15.9 % (11.5-14.5); White Blood Cell Count 7.6 10^3/uL (4.8-10.8)
[2024-11-29 07:58] LABS: Blood Urea Nitrogen 13 mg/dl (9-20); Calcium 8.4 mg/dl (8.4-10.2); Carbon Dioxide 25 mmol/L (22-30); Chloride 103 mmol/L (98-107); Estimated Creatinine Clearance 58 ml/min; Glucose 86 mg/dl (70-99); Iron 28 ug/dl (49-181); Potassium 3.7 mmol/L (3.5-5.1); Sodium 136 mmol/L (135-145); eGFR > 60.00
[2024-11-29 08:07] LABS: Percent Saturation 10 % (20-50); Total Iron Binding Capacity 265 ug/dl (261-462)
[2024-11-29 08:18] LABS: Ferritin 47.9 ng/ml (17.9-464.0)
--- NOTE | 2024-11-29 08:40 | W.PN.HOSP.TC ---
Today's Communication/Plan
-
Iron infusion. B12 supplementation. Zyprexa as needed.
Assessment / Plan
Assessment / Plan
Physical exam:
General: Acute on chronically ill
HEENT: Normocephalic, Atraumatic and Moist Mucous Membranes
Respiratory: Clear to Auscultation; Negative Wheezes, Rales or Rhonchi
Cardiac: Irregular Rate and Rhythm and S1/S2
GI: Soft, Nontender and Nondistended
Musculoskeletal: No Clubbing, No Cyanosis and No Edema
Neuro: Awake, Alert and Disoriented. No neurological deficits.
Psych: Agitated and lack of judgment and insight.
A/P:
Anemia:
Appears to be multifactorial related to iron deficiency, anemia of chronic disease, and B12 deficiency. Cannot rule out GI bleed but does not appear to have active GI bleeding at the moment.
Hemoglobin 7.8--> 8.8 today
Will start him on IV iron infusions.
Will start him on B12 supplementation.
Continue on clear liquid
Continue IV PPI twice daily
Hold aspirin for now
GI consult appreciated
Continue to monitor hemoglobin
Discussed with over the phone today
Dementia with hyperactive delirium and ?suicidal ideations:
Zyprexa as needed
Continue one-to-one observation
Psychiatry consult appreciated
CAD/PVD/CVA:
Holding antiplatelets and cilostazol
Continue statins
Permanent A-fib:
Continue rate control, metoprolol succinate 50 mg twice a day
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
Severe protein calorie malnutrition:
Continue to evaluate nutrition levels
DVT prophylaxis:
SCDs
CODE STATUS:
DNR
Total time spent on today's encounter was 52 minutes which included time spent in counseling the patient/family regarding diagnosis and treatment plan as listed above, goals of care, and symptom management. Case was discussed with nursing staff,
specialists, and care coordinators/case management. All labs and imaging personally reviewed by me. Remainder the time spent in detailed review of previous records, lab data, imaging, and other medical provider documentation.
Anticipated Discharge: 24 - 48 hours
Subjective/Interval History
-
Date of Service: November 29, 2024
Patient remains disoriented and agitation on and off. No abdominal pain.
Objective Data
-
Labs:
Laboratory Results
11/28/24 11/29/24
21:46 06:12
WBC 7.6
Hgb 8.7 L 8.8 L
Hct 27.5 L 28.5 L
Plt Count 255
Sodium 136
Potassium 3.7
Chloride 103
Carbon Dioxide 25
BUN 13
Creatinine 0.7
Glucose 86
Calcium 8.4
Vital Signs:
Vital Signs
Temp Pulse Resp BP Pulse Ox
97.8 F 82 16 160/65 95
11/29/24 00:22 11/29/24 03:45 11/29/24 03:45 11/29/24 03:45 11/29/24 03:45
[2024-11-29 08:49] LABS: Folate 6.6 ng/ml (2.76-20); Vitamin B12 268 pg/ml (239-931)
[2024-11-29 10:00] VITALS: BP 161/66
--- NOTE | 2024-11-29 10:08 | CON.GI ---
Consultation
-
Date/Time Consultation Performed: 11/29/24
Performing Provider: Jackson Alves MD
Reason for Consultation: melena/anemia
Medical History
Chief Complaint / HPI
Chief Complaint: fall
History of Present Illness:
The patient is an 84-year-old male with past medical history as noted who presents after a fall in the long-term. Upon presentation he was noted to have a hemoglobin of 7.8, and dark, heme positive stools in the emergency room. The patient is
not oriented and cannot provide much further history, and is obtained from the patient's . She states that he has not had any significant signs of bleeding that she is aware of her GI complaints. Per his aide he has not had any bowel movements
overnight or vomiting this morning, and is tolerating clear liquids. Looking back he has been chronically anemic, with hemoglobin around 9 for the past month. Iron percent saturation is low though ferritin is normal, and B12 is borderline low,
with MCV in the mid 80s. He currently denies any chest pain or shortness of breath. His cardiac status is unclear, has had stents in the past with history of cardiomyopathy though the last echo that I can see From 2019 showed EF of 40 to 45% with
trace RHONA ULRICH. he does have a history of A-fib though appears to be on aspirin alone. He does take Pepcid chronically. I discussed with psychiatry who also discussed with the patient's , has history of dementia though has never been suicidal in
the past as he expressed last night, likely some component of delirium now.
Past Medical History
Past Medical History: Other (Dementia Peripheral vascular disease Coronary artery disease Cardiomyopathy Paroxysmal A-fib Left carotid stenosis Hyperlipidemia CVA Hypertension Urinary bladder mass Ventricular tachycardia Chronic ischemic brain
disease)
Past Surgical History: Other (Cardiac stent Right nephrectomy)
Social History
Tobacco: Former Smoker
Alcohol: Former
Family History
Family History: Reviewed & Not Pertinent
Allergies / Home Medications
Allergy/AdvReac Type Severity Reaction Status Date / Time
No Known Allergies Allergy Verified 11/28/24 13:13
�Medication �Instructions �Recorded
aspirin 81 mg tablet,delayed 81 mg PO HS Blood Clot 09/30/12
release Prevention/Tx
simvastatin 20 mg tablet 20 mg PO HS High Cholesterol 05/02/15
cilostazol 100 mg tablet 100 mg PO BID Blood Clot 08/12/19
Prevention/Tx
metoprolol succinate 50 mg 50 mg PO BID Blood Pressure 10/02/24
tablet,extended release 24 hr
(Toprol XL)
famotidine 20 mg tablet 20 mg PO DAILY #20 tabs 10/09/24
polyethylene glycol 3350 17 gram 17 g PO DAILY #30 ea 10/09/24
oral powder packet
acetaminophen 325 mg tablet 650 mg PO Q6HPRN PRN mild pain 11/28/24
(Tylenol)
bisacodyl 10 mg rectal suppository 10 mg DE DAILYPRN PRN if no bm 11/28/24
(Dulcolax (bisacodyl)) aftr mom
magnesium hydroxide 400 mg/5 mL 2,400 mg PO DAILYPRN PRN if no bm 11/28/24
oral suspension (Milk of Magnesia) by 3rd day
Review of Systems
-
All other systems: A 12 pt ROS was Negative except as stated above in HPI
Vital Signs
Temp Pulse Resp BP Pulse Ox
97.8 F 82 16 160/65 95
11/29/24 00:22 11/29/24 03:45 11/29/24 03:45 11/29/24 03:45 11/29/24 03:45
Physical Exam
Exam
General: NAD, thin appearing
HEENT: MMM, anicteric, no lymphadenopathy
Heart: Regular, 3/6 systolic murmurs
Lungs: CTA bilaterally
Abdomen: normal bowel sounds, soft, no tenderness, no rebound or guarding, no masses, bruits or ascites
Extremeties: no edema
Skin: no rashes
Results
WBC 7.6 10^3/uL (4.8-10.8) 11/29/24 06:12
Hgb 8.8 g/dL (13.0-18.0) L 11/29/24 06:12
Hct 28.5 % (39.0-52.0) L 11/29/24 06:12
MCV 86.6 fL (80.0-94.0) 11/29/24 06:12
Plt Count 255 10^3/uL (130-400) 11/29/24 06:12
Absolute Neuts (auto) 8.2 10^3/uL (1.4-6.5) H 11/28/24 13:41
Sodium 136 mmol/L (135-145) 11/29/24 06:12
Potassium 3.7 mmol/L (3.5-5.1) 11/29/24 06:12
Chloride 103 mmol/L (98-107) 11/29/24 06:12
Carbon Dioxide 25 mmol/L (22-30) 11/29/24 06:12
BUN 13 mg/dl (9-20) 11/29/24 06:12
Creatinine 0.7 mg/dL (0.7-1.3) 11/29/24 06:12
Calcium 8.4 mg/dl (8.4-10.2) 11/29/24 06:12
Total Bilirubin 0.6 mg/dl (0.2-1.3) 11/28/24 13:41
AST 12 U/L (17-59) L 11/28/24 13:41
ALT < 10 U/L (0-50) 11/28/24 13:41
Alkaline Phosphatase 100 U/L (38-126) 11/28/24 13:41
Diagnostic Image Results:
Prior GI Procedures:
EGD:
Colonoscopy:
2013:
Impression: - The examined portion of the ileum was normal.
- One 1 mm polyp in the cecum. Resected and retrieved.
- One 3 mm polyp in the ascending colon. Resected and
retrieved. Clipped.
- Two small polyps at the hepatic flexure. Resected and
retrieved. Clipped.
- One 1 mm polyp in the descending colon. Resected and
retrieved.
- Three benign appearing small polyps in the rectum.
Resected and retrieved.
- Anal papilla(e) were hypertrophied.
Assessment / Plan
-
1. Anemia: Multifactorial, some component of iron deficiency, also with borderline B12 deficiency. While there were dark stools noted, he has not had any further bowel movements overnight or vomiting, and doubt significant active bleeding. His
hemoglobin is been stable over the past month. I discussed at length with his , he is at higher risk for invasive sedated procedures, and without any significant brisk bleeding given his age and comorbidities would likely hold for now pending
his clinical course. Will continue clear liquids, PPI twice daily. Would likely benefit from iron and B12 supplementation though will defer to internal medicine. Will continue observation for now, reevaluate tomorrow pending clinical course and
discuss endoscopy versus observation with his again.
-
-
Thank you for consultation and allowing me to participate in the patient's care. Please call the member of congress GI physician during the after hours with any questions or concerns.
--- NOTE | 2024-11-29 10:13 | W.PN.UPDATE ---
Update Note
Progress Note Update
Patient is presently not responding to questions asked, he is intermittently agitated and trying to get out of bed.
I called his who stated he has dementia for about 2 years and has significant cognitive loss. She reports he has not been agitated or combative in the SNF and has not been on psychotropic meds.
He has significant medical history and his HB is 8.8
For now I would use prn Zyprexa 2.5 mg if he is significantly agitated and we will F/U.
Discussed with .
[2024-11-29] MEDS: MIRALAX 17 GRAMS PO (10:30)
[2024-11-29] MEDS: TOPROL XL 50 MG PO ×2 (10:30→20:00)
[2024-11-29] MEDS: PROTONIX IV 40 MG IV ×2 (10:31→20:01)
[2024-11-29] MEDS: NSS (PRESERVATIVE FREE) 10 ML IV ×2 (10:32→20:01)
--- NOTE | 2024-11-29 13:15 | PTCARENOTE ---
Patient was agitated, angry and combative this am. Patient is more calm at present, agreeable to take meds and get bathed. Patient is impulsive and will attempt to climb OOB. Patient is unsteady and urinated on himself. 1:1 maintained. Spouse at
bedside. Patient on clear liquid diet and consuming <50%.
[2024-11-29 14:30] VITALS: BP 156/63
[2024-11-29] MEDS: FERRLECIT 110 MG IV (15:54)
[2024-11-29] MEDS: VITAMIN B-12 1000 MCG PO (15:56)
--- NOTE | 2024-11-29 16:22 | PTCARENOTE ---
Assigned to provide 1:1 observation for patients safety. Pt family is visiting at bedside. RN introduced self to patient and family, offered patient to be repositioned, patient refused.
--- NOTE | 2024-11-29 17:25 | PTCARENOTE ---
Patient is acutely delirious, thinks box of tissues is candy, states that 'tasty cakes will be the of me'. He was able to eat a small amount of clear liquid dinner. He is constantly fidgeting- passing imaginary items to daughter, pulling and
trying to bite IV tubing, reaching out for imaginary ice cream. He is easily distracted by daughter. He got agitated with RN earlier while trying to void in urinal- grabbed RN's hand and attempted to throw urinal across the room. He was able to calm
back down. RN attempted to call pt's on her cell phone and home phone as patient had asked to call her. Pt's did not picking table worker. Pt's daughter and son in law still at bedside with patient, he is responding well to their presence.
[2024-11-29] MEDS: LIPITOR 10 MG PO (21:24)
[2024-11-29] MEDS: STERILE WATER FOR INJECTION 2.1 ML IM (21:58)
[2024-11-29] MEDS: ZYPREXA 2.5 MG IM (21:58)
[2024-11-29 23:08] VITALS: BP 128/72
[2024-11-30 03:29] VITALS: BP 105/52
--- NOTE | 2024-11-30 06:04 | W.PN.GI.CBS2 ---
Today's Communication / Plan
-
Please see assessment plan for details.
Assessment / Plan
-
1. Anemia: Multifactorial, some component of iron deficiency, also with borderline B12 deficiency. While there were dark stools noted, he has not had any further bowel movements overnight or vomiting, and doubt significant active bleeding. His
hemoglobin is been stable over the past month. Unlikely that his fall was related to any significant active bleeding. At this point will await morning hemoglobin, will discuss with his after that. If stable given his age and comorbidities
would likely hold on endoscopic evaluation, though continue supportive care, PPI, iron and B12 supplementation.
Subjective
Subjective
Date of Service: November 30, 2024
No events overnight per nursing, no bowel movements or vomiting, was tolerating liquids without difficulty. He received Zyprexa and slept. Currently the patient does not want to answer any questions though states he is feeling okay.
Objective
Data Reviewed
Laboratory Data:
Laboratory Results
11/29/24 06:12
Laboratory Results
Magnesium 2.1 mg/dl (1.6-2.3) 11/28/24 13:41
Total Bilirubin 0.6 mg/dl (0.2-1.3) 11/28/24 13:41
AST 12 U/L (17-59) L 11/28/24 13:41
ALT < 10 U/L (0-50) 11/28/24 13:41
Alkaline Phosphatase 100 U/L (38-126) 11/28/24 13:41
Vital Signs and I&O:
Vital Signs
Temp Pulse Resp BP Pulse Ox
97.8 F 75 16 105/52 91
11/30/24 03:29 11/30/24 03:29 11/30/24 03:29 11/30/24 03:29 11/30/24 03:29
I&O
11/28/24 11/29/24 11/30/24
06:59 06:59 06:59
Intake Total 890 / 890
Output Total 150 / 150
Balance 740 / 740
Physical Exam
Physical Exam
General: NAD
Abdomen: normal bowel sounds, soft, no tenderness, no masses or bruits, no ascites
[2024-11-30 06:26] LABS: Hematocrit 27.6 % (39.0-52.0); Hemoglobin 8.7 g/dL (13.0-18.0); Mean Corp Hgb Conc. 31.5 g/dL (33.0-37.0); Mean Corpuscular Hgb 26.7 pg (27.0-31.0); Mean Corpuscular Volume 84.7 fL (80.0-94.0); Mean Platelet Volume 9.4 fL (7.4-10.4); Platelet Count 244 10^3/uL (130-400); Red Blood Cell Count 3.26 10^6/uL (4.70-6.10); Red Cell Dist. Width 15.7 % (11.5-14.5); White Blood Cell Count 7.7 10^3/uL (4.8-10.8)
[2024-11-30 07:35] VITALS: BP 172/69
--- NOTE | 2024-11-30 08:29 | W.PN.UPDATE ---
Update Note
Progress Note Update
Morning hemoglobin noted, I discussed with patient's . Given no signs of bleeding and stable hemoglobin given his age and comorbidities we will hold on endoscopic evaluation. Will advance diet and see if he tolerates.
[2024-11-30 09:26] VITALS: BP 150/63; PULSE 65; O2SAT 95
[2024-11-30 09:27] VITALS: BP 150/63; PULSE 64; O2SAT 95
[2024-11-30] MEDS: PROTONIX IV 40 MG IV ×2 (10:00→19:54)
[2024-11-30] MEDS: NSS (PRESERVATIVE FREE) 10 ML IV ×2 (10:00→19:54)
[2024-11-30] MEDS: MIRALAX 17 GRAMS PO (10:00)
[2024-11-30] MEDS: VITAMIN B-12 1000 MCG PO (10:00)
[2024-11-30] MEDS: TOPROL XL 50 MG PO (10:01)
--- NOTE | 2024-11-30 12:58 | W.PN.HOSP.TC ---
Today's Communication/Plan
-
see A/P
Assessment / Plan
Assessment / Plan
A/P:
# Anemia: Appears to be multifactorial related to iron deficiency, anemia of chronic disease, and B12 deficiency. Cannot rule out GI bleed but does not appear to have active GI bleeding at the moment.
Hemoglobin stable at 8.7
Iron panel noted, cont IV iron infusions.
low B12 level, started B12 supplementation.
Continue IV PPI twice daily
Hold aspirin for now
GI consult appreciated: Given no signs of bleeding and stable hemoglobin given his age and comorbidities will hold on endoscopic evaluation.
# Dementia with sundowning
# lethargy during day time
CT head without contrast on admission no acute change,
pt has h/o lung mass, daughter asking about possibility of lung mets to brain, will check CT head with contrast to eval cancer mets
Zyprexa as needed for agitation
Continue one-to-one observation
Psychiatry input appreciated
# CAD/PVD/CVA:
Holding antiplatelets and cilostazol
Continue statins
# Permanent A-fib:
Continue rate control, metoprolol succinate 50 mg twice a day
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
# Severe protein calorie malnutrition:
Continue to evaluate nutrition levels
Start gentle IVF per family request
# Severe clinical deconditioning
d/w GOC with family, and they agree with hospice if pt does not improve clinically with gentle IVF
DVT prophylaxis: SCDs
CODE STATUS: DNR
Dispo: PT recc SNF vs hospice
DW ex- and daughter at bedside. Discussed GOC
Anticipated Discharge: 24 - 48 hours
Subjective/Interval History
-
Date of Service: November 30, 2024
Objective Data
-
Labs:
Laboratory Results
11/30/24
05:37
WBC 7.7
Hgb 8.7 L
Hct 27.6 L
Plt Count 244
Vital Signs:
Vital Signs
Temp Pulse Resp BP Pulse Ox
36.6 C 83 22 172/69 96
11/30/24 03:29 11/30/24 07:35 11/30/24 07:35 11/30/24 07:35 11/30/24 07:35
I&O
11/29/24 11/30/24 12/01/24
06:59 06:59 06:59
Intake Total 890 / 890
Output Total 150 / 150
Balance 740 / 740
Review of Systems
-
Unable to obtain full review of systems at this time due to: Dementia
Physical Exam
-
General: Well Developed, Well Nourished, Comfortable and Appears Chronically Ill
HEENT: Normocephalic, Atraumatic and Moist Mucous Membranes
Respiratory: Clear to Auscultation and Non Labored Respirations; Negative Accessory Resp Muscle Use
Musculoskeletal: No Clubbing, No Cyanosis and No Edema
Skin: Rash
Neuro: Negative Awake
Psych: Calm
Data Reviewed
-
CT Scan: Report Reviewed by me
Labs: Labs Reviewed by me
[2024-11-30] MEDS: FERRLECIT 110 MG IV (13:30)
[2024-11-30] MEDS: NSS 1000 IV (13:30)
--- NOTE | 2024-11-30 14:14 | CM ---
Patient seen bedside.
Spouse bedside.
Patient sleeping.
1:1 remains.
Patient from [facility], plan is to return. family aware he will need to be off 1:1 and IM medications for 24 prior to transfer.
Patient will need PT/OT evals when stable.
Plan:Back to [facility] when stable
[facility]
[2024-11-30 15:08] VITALS: BP 129/75
[2024-11-30 15:19] VITALS: BMI 15.0
--- NOTE | 2024-11-30 17:49 | PTCARENOTE ---
Patient drowsy most of the day. RN tried to wake patient and patient became angry and raised his fists. When patient is disturbed he becomes angry. patient was able to be washed and changed without any problems, but patient refuses care
intermittently. 1:1 Observation maintained. Family at bedside.
[2024-11-30] MEDS: TOPROL XL PO (20:05)
--- NOTE | 2024-11-30 20:17 | PTCARENOTE ---
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 Covering provider Nathalie Bejarano is aware.
[2024-11-30] MEDS: LIPITOR PO (21:56)
--- NOTE | 2024-11-30 23:50 | PTCARENOTE ---
Patient refusing to have vital signs taken. Covering provider Nathalie Bejarano is aware.
--- NOTE | 2024-12-01 06:01 | PTCARENOTE ---
Patient refused lab work this morning. Covering provider Nathalie Bejarano is aware.
[2024-12-01] MEDS: NSS 1000 IV (06:03)
[2024-12-01] MEDS: MIRALAX PO ×2 (08:38→12:40)
[2024-12-01] MEDS: NSS (PRESERVATIVE FREE) 10 ML IV ×2 (08:39→20:22)
[2024-12-01] MEDS: PROTONIX IV 40 MG IV ×2 (08:41→20:22)
[2024-12-01] MEDS: TOPROL XL PO ×3 (08:41→21:16)
[2024-12-01] MEDS: VITAMIN B-12 PO ×2 (08:41→12:40)
--- NOTE | 2024-12-01 10:53 | W.PN.UPDATE ---
Update Note
Progress Note Update
Patient seen at bedside, 1:1 present, chart reviewed, discussed with staff. Mr. Valencia is asleep. Does not respond to his name being called. Reportedly refusing meds, vital signs, labs, etc. No reports of agitation overnight.
Impression/recommendation: Vascular Dementia with psychotic symptoms - It is not clear why risperidone to 0.5 mg BID was not continued on this admission which appeared to be helpful last admission. had stated he was not on any psychotropics at
the [facility]. PRN Zyprexa being utilized her but he has not needed a dose since 11/29. Continue efforts to redirect as needed.
--- NOTE | 2024-12-01 11:12 | W.PN.HOSP.TC ---
Addendum entered and electronically signed by Cate Simental MD 12/01/24 12:37:
discussed with daughter Dannielle on the phone. She is agreeable with hospice.
Original Note:
Today's Communication/Plan
-
see A/P
GOC discussion ongoing
Assessment / Plan
Assessment / Plan
A/P:
# Anemia: Appears to be multifactorial related to iron deficiency, anemia of chronic disease, and B12 deficiency. Cannot rule out GI bleed but does not appear to have active GI bleeding at the moment.
Hemoglobin stable at 8.7
Iron panel noted, cont IV iron infusions.
low B12 level, started B12 supplementation.
Continue IV PPI twice daily
Hold aspirin for now
GI input appreciated: Given no signs of bleeding and stable hemoglobin given his age and comorbidities will hold on endoscopic evaluation.
# Dementia with sundowning
# lethargy during day time
CT head without contrast on admission no acute change,
Follow up CT head with contrast noted a 1.7 mm focus of asymmetric cortical enhancement along the posterior left frontal lobe which may represent a prominent cortical vein or small metastasis in the setting of reported lung mass.
Rad recommend MRI brain with and without contrast for further evaluation.
At this point, GOC ongoing, hence will hold MRI brain for now.
Zyprexa as needed for agitation
Continue one-to-one observation
Psychiatry input appreciated
# h/o lung mass
No aggressive Mx per family
# CAD/PVD/CVA:
Holding antiplatelets and cilostazol
Continue statins
# Permanent A-fib:
Continue rate control, metoprolol succinate 50 mg twice a day
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
# Severe protein calorie malnutrition:
Continue to evaluate nutrition levels
# Severe clinical deconditioning
Started gentle IVF per family request, MS not significantly improved
continuing GOC with family
DVT prophylaxis: SCDs
CODE STATUS: DNR
Dispo: PT recc SNF vs hospice
DW ex- and daughter at bedside 11/30
DW on the phone 12/01 with regard to GOC.
Tried to reach daughter on the phone, called several times, calls now answered
total time spent 51 min
Anticipated Discharge: 24 - 48 hours
Subjective/Interval History
-
Date of Service: December 01, 2024
Objective Data
-
Labs:
Laboratory Results
12/01/24
06:00
WBC Pending
Hgb Pending
Hct Pending
Plt Count Pending
Sodium Pending
Potassium Pending
Chloride Pending
Carbon Dioxide Pending
BUN Pending
Creatinine Pending
Glucose Pending
Calcium Pending
Vital Signs:
Vital Signs
Temp Pulse Resp BP Pulse Ox
37.1 C 108 24 129/75 95
11/30/24 15:08 12/01/24 08:41 11/30/24 15:08 12/01/24 08:41 11/30/24 15:08
I&O
11/30/24 12/01/24 12/02/24
06:59 06:59 06:59
Intake Total 890 / 890 1130 / 1130
Output Total 150 / 150
Balance 740 / 740 1130 / 1130
Review of Systems
-
Unable to obtain full review of systems at this time due to: Dementia
Physical Exam
-
General: Well Developed, Well Nourished, Comfortable and Appears Chronically Ill
HEENT: Normocephalic, Atraumatic and Moist Mucous Membranes
Respiratory: Clear to Auscultation and Non Labored Respirations; Negative Accessory Resp Muscle Use
Musculoskeletal: No Clubbing, No Cyanosis and No Edema
Skin: Rash
Neuro: Negative Awake
Psych: Calm; Negative Intact Judgement/Insight
Data Reviewed
-
CT Scan: Report Reviewed by me
Labs: Labs Reviewed by me
--- NOTE | 2024-12-01 11:22 | W.PN.GI.CBS2 ---
Today's Communication / Plan
-
GI will sign off, please call with questions.
Assessment / Plan
-
1. Anemia: Multifactorial, some component of iron deficiency, also with borderline B12 deficiency. While there were dark stools noted, he has not had any further bowel movements or vomiting. His hemoglobin has remained stable. It is unlikely that
his fall was 2/2 significant/active GI bleeding. Dr. Alves spoke with patient's yesterday and considering his medical comorbidities and stable hemoglobin without signs of bleeding, holding off on endoscopic evaluation. Continue supportive
care, PPI, iron and B12 supplementation.
GI will sign off, please call with questions or concern for clinically significant GI bleeding.
Subjective
Subjective
Date of Service: December 01, 2024
Patient seen in follow-up, 1:1 at bedside. No overnight events.
Objective
Data Reviewed
Laboratory Data:
Laboratory Results
Magnesium 2.1 mg/dl (1.6-2.3) 11/28/24 13:41
Total Bilirubin 0.6 mg/dl (0.2-1.3) 11/28/24 13:41
AST 12 U/L (17-59) L 11/28/24 13:41
ALT < 10 U/L (0-50) 11/28/24 13:41
Alkaline Phosphatase 100 U/L (38-126) 11/28/24 13:41
Vital Signs and I&O:
Vital Signs
Temp Pulse Resp BP Pulse Ox
98.7 F 108 24 129/75 95
11/30/24 15:08 12/01/24 08:41 11/30/24 15:08 12/01/24 08:41 11/30/24 15:08
I&O
11/30/24 12/01/24 12/02/24
06:59 06:59 06:59
Intake Total 890 / 890 1130 / 1130
Output Total 150 / 150
Balance 740 / 740 1130 / 1130
Physical Exam
Physical Exam
HEENT: Anicteric and Moist mucous membranes
GI: Soft, Non Distended, Non Tender and Normal Bowel Sounds
--- NOTE | 2024-12-01 13:12 | CM ---
Patient seen bedside with 1:1.
Patient sleeping.
per MD will d/c 1:1.
PT recommending skilled rehab
Plan: back to [facility] when stable.
[2024-12-01 14:16] VITALS: BP 166/80
[2024-12-01] MEDS: FERRLECIT 110 MG IV (14:35)
[2024-12-01] MEDS: APRESOLINE 5 MG IV (17:44)
--- NOTE | 2024-12-01 18:16 | PTCARENOTE ---
Pt refused AM PO meds this AM. pt refused vitals today. Dr. Simental notified via tt. pt bp elevate this afternoon when pt allowed staff to check, this nurse notified dr. Simental. PRN hydralazine ordered for sys >150, administered to pt. Tele monitoring
removed per verbal order. Pt son and Pt daughter updated by this nurse today. Pt arrived to unit asking to speak with , was unable to answer questions when talking to this nurse, spinning in circles at the nurses station. Spoke
with pt son who stated pt has medical things going on at this time. After discussing with son and , family is leaning towards hospice, Dr. Simental notified, she will discuss with family tomorrow.
--- NOTE | 2024-12-01 20:19 | PTCARENOTE ---
Pt's family asked staff to let pt sleep and stated 'he is agitated and ready to punch someone'. They also asked to avoid sedatives if possible. Family okay with pt refusing vitals and medications. Iv protonix given but unable to give toprol PO d/t
not being able to get vitals. JASPREET Bejarano notified. Bed alarm in place and plan of care ongoing.
[2024-12-01] MEDS: LIPITOR PO (21:17)
--- NOTE | 2024-12-01 23:25 | PTCARENOTE ---
Pt repositioned himself in bed to where his head was at the bottom and feet at the top. IV w/ IV fluids out of pt's arm. Pt agreeable to get repositioned and cleaned up. RN able to complete head to toe assessment. Pt getting agitated and refusing VS
and IV placement. VP ORGANIZATIONAL DEVELOPMENT notified, no new orders. Bed alarm in place and plan of care ongoing.
[2024-12-02 07:30] VITALS: BP 141/81
[2024-12-02] MEDS: MIRALAX 17 GRAMS PO (08:49)
[2024-12-02] MEDS: VITAMIN B-12 1000 MCG PO (08:51)
[2024-12-02] MEDS: TOPROL XL 50 MG PO ×2 (08:51→20:08)
[2024-12-02] MEDS: PROTONIX IV IV (09:04)
[2024-12-02] MEDS: NSS (PRESERVATIVE FREE) IV (09:04)
[2024-12-02] MEDS: NSS IV (09:05)
--- NOTE | 2024-12-02 11:44 | CM ---
Patient seen at bedside. Patient off 1:1 since yesterday am, and therapy to see patient today. CM will update facility and continue to follow for discharge planning needs.
Plan; return to SNF; [facility]
--- NOTE | 2024-12-02 12:13 | W.PN.HOSP.TC ---
Today's Communication/Plan
-
see A/P
Assessment / Plan
Assessment / Plan
A/P:
# Anemia: Appears to be multifactorial related to iron deficiency, anemia of chronic disease, and B12 deficiency. Cannot rule out GI bleed but does not appear to have active GI bleeding at the moment.
Hemoglobin stable at 8.7
Iron panel noted, cont IV iron infusions if able
low B12 level, started B12 supplementation.
Continue IV PPI twice daily
Hold aspirin for now
GI input appreciated: Given no signs of bleeding and stable hemoglobin given his age and comorbidities will hold on endoscopic evaluation.
# Dementia with sundowning
# lethargy during day time
CT head without contrast on admission no acute change,
Follow up CT head with contrast noted a 1.7 mm focus of asymmetric cortical enhancement along the posterior left frontal lobe which may represent a prominent cortical vein or small metastasis in the setting of reported lung mass.
Rad recommend MRI brain with and without contrast for further evaluation.
GOC discussion ongoing, hence will hold MRI brain for now.
Zyprexa as needed for agitation
Continue one-to-one observation
Psychiatry input appreciated
# h/o lung mass
No aggressive Mx per family
# CAD/PVD/CVA:
Holding antiplatelets and cilostazol
Continue statins
# Permanent A-fib:
Continue rate control, metoprolol succinate 50 mg twice a day
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
# Severe protein calorie malnutrition:
Continue to evaluate nutrition levels
# Severe clinical deconditioning
Started gentle IVF per family request, MS improving, today awake and conversant
continuing GOC with family
DVT prophylaxis: SCDs
CODE STATUS: DNR
Dispo: PT recc SNF vs hospice
extensive discussion with daughter and son on the phone. GOC discussion ongoing. Plan is to cont current gentle IVF for now, and will assess for discontinuation of fluid later and monitor clinical status
total time spent 51 min
Anticipated Discharge: 24 - 48 hours
Subjective/Interval History
-
Date of Service: December 02, 2024
Objective Data
-
Vital Signs:
Vital Signs
Temp Pulse Resp BP Pulse Ox
37.0 C 90 18 141/81 96
12/02/24 07:30 12/02/24 08:51 12/02/24 07:30 12/02/24 08:51 12/02/24 07:30
I&O
12/01/24 12/02/24 12/03/24
06:59 06:59 06:59
Intake Total 1130 / 1130 120 / 120
Balance 1130 / 1130 120 / 120
Review of Systems
-
Unable to obtain full review of systems at this time due to: Dementia
Physical Exam
-
General: Well Developed, Well Nourished, Comfortable and Appears Chronically Ill
HEENT: Normocephalic, Atraumatic and Moist Mucous Membranes
Respiratory: Clear to Auscultation and Non Labored Respirations; Negative Accessory Resp Muscle Use
Musculoskeletal: No Clubbing, No Cyanosis and No Edema
Skin: Rash
Neuro: Awake
Psych: Calm and Apparent Dementia; Negative Intact Judgement/Insight
[2024-12-02 12:25] VITALS: BP 143/81; BP 156/76; PULSE 80; O2SAT 96
--- NOTE | 2024-12-02 12:33 | W.PN.UPDATE ---
Update Note
Progress Note Update
patient seen chart reviewed. he resides in a [place] and has hx of several years of dementia. he is here after a fall and had some periods of agitation early in his stay. discussed with nursing. earlier today patient was s/w agitated as per nursing but
she was able to get him to take medications. when i initially saw him he was sleeping. came back later as PT was finishing up with him. he was reportedly cooperative as he was with me. while he is diffiicult to understand at times he told me he
has two kids four grands and even great grandchildren. 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 he used to enjoy watching endoscopy support specialist shows on tv now he likes to watch sports. he had one prn
of zyprexa im a couple of days ago but has no prn ordered currently. patient w many underlying medical comorbidities that likely contribute to his fragile mental and physical state. ms hendrix sherwood mentioned patient had been on risperdal either
risperdal 0.5 mg or seroquel 25 mg(not both) could be used prn for agitation. will check in w him tomorrow if he remains here.
[2024-12-02] MEDS: FERRLECIT IV (14:46)
[2024-12-02 14:54] VITALS: BP 104/65
[2024-12-02 19:45] VITALS: BP 142/76
--- NOTE | 2024-12-02 20:00 | PTCARENOTE ---
Spoke with pt's son, Emile Valencia ([phone]), and pt's at bedside. Pt's son requesting that we let the pt sleep and to not disturb him, which could cause him to get agitated. Pt's son stated that the pt was given something for agitation and
then was difficult to arouse until 3pm the next day. He would rather we did not wake the pt up for vital signs at 23:00 and prioritize the pt's sleep. He discussed this with the hospitalist at length on the phone. I got a set of vital signs at the
beginning of this shift and assured him that we would not be waking the pt up for vitals. He was very appreciative.
[2024-12-02] MEDS: PROTONIX 40 MG PO (20:07)
[2024-12-02] MEDS: LIPITOR 10 MG PO (20:08)
[2024-12-03 03:31] VITALS: BMI 14.3
[2024-12-03 03:38] VITALS: BP 176/78
[2024-12-03 07:35] VITALS: BP 154/79
[2024-12-03] MEDS: PROTONIX 40 MG PO (08:15)
[2024-12-03] MEDS: TOPROL XL 50 MG PO (08:15)
[2024-12-03] MEDS: MIRALAX 17 GRAMS PO (08:15)
[2024-12-03] MEDS: VITAMIN B-12 1000 MCG PO (08:16)
[2024-12-03 08:30] LABS: Blood Urea Nitrogen 12 mg/dl (9-20); Calcium 8.6 mg/dl (8.4-10.2); Carbon Dioxide 28 mmol/L (22-30); Chloride 112 mmol/L (98-107); Estimated Creatinine Clearance 48 ml/min; Glucose 118 mg/dl (70-99); Potassium 3.9 mmol/L (3.5-5.1); Sodium 145 mmol/L (135-145); eGFR > 60.00
--- NOTE | 2024-12-03 11:11 | W.PN.UPDATE ---
Update Note
Progress Note Update
patient seen chart reviewed. spoke with nursing. it seems patient resists taking meds but once he takes them he seems to settle down. he is not taking any psychotropic medications. he was pleasant w me. we talked about old game shows he used to
watch many of which were familiar to me. i told him i used to watch ' a lot of tv'. he looked at me and said 'that's okay!' would continue as is for now. if he can be managed without psychotropic meds that is preferred.
--- NOTE | 2024-12-03 11:28 | W.PN.HOSP.TC ---
Today's Communication/Plan
-
dispo planning to dementia unit (hopefully)
Assessment / Plan
Assessment / Plan
A/P:
# Anemia: Appears to be multifactorial related to iron deficiency, anemia of chronic disease, and B12 deficiency. Cannot rule out GI bleed but does not appear to have active GI bleeding at the moment.
Hemoglobin stable at 8.7
Iron panel noted, cont IV iron infusions if able
low B12 level, started B12 supplementation.
Continue IV PPI twice daily
Hold aspirin for now
GI input appreciated: Given no signs of bleeding and stable hemoglobin given his age and comorbidities will hold on endoscopic evaluation.
# Dementia with sundowning
CT head without contrast on admission no acute change,
Follow up CT head with contrast noted a 1.7 mm focus of asymmetric cortical enhancement along the posterior left frontal lobe which may represent a prominent cortical vein or small metastasis in the setting of reported lung mass.
Rad recommend MRI brain, but I do NOT feel MRI is indicated at this point as it will not exchange architect
GOC discussion was started, but pt clinically improved, hence plan is for dispo to dementia unit
CM to facilitate dispo plan
# h/o lung mass
No aggressive Mx per family
# CAD/PVD/CVA:
Holding antiplatelets and cilostazol
Continue statins
# Permanent A-fib:
Continue rate control, metoprolol succinate 50 mg twice a day
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
# Severe protein calorie malnutrition:
Continue to evaluate nutrition levels
# Severe clinical deconditioning
Started gentle IVF per family request, MS improving, today awake and conversant
continuing GOC with family
DVT prophylaxis: SCDs
CODE STATUS: DNR
Dispo: dementia unit
DW daughter at bedside.
update on the phone
DW RN and CM
total time spent 51 min
Anticipated Discharge: 24 - 48 hours
Subjective/Interval History
-
Date of Service: December 03, 2024
Objective Data
-
Labs:
Laboratory Results
12/03/24
06:55
Sodium 145
Potassium 3.9
Chloride 112 H
Carbon Dioxide 28
BUN 12
Creatinine 0.8
Glucose 118 H
Calcium 8.6
Vital Signs:
Vital Signs
Temp Pulse Resp BP Pulse Ox
36.8 C 92 18 154/79 97
12/03/24 03:38 12/03/24 08:15 12/03/24 07:35 12/03/24 08:15 12/03/24 07:35
I&O
12/02/24 12/03/24 12/04/24
06:59 06:59 06:59
Intake Total 120 / 120
Balance 120 / 120
Review of Systems
-
Unable to obtain full review of systems at this time due to: Dementia
Physical Exam
-
General: Well Developed, Well Nourished, Comfortable and Appears Chronically Ill
HEENT: Normocephalic, Atraumatic and Moist Mucous Membranes
Respiratory: Clear to Auscultation and Non Labored Respirations; Negative Accessory Resp Muscle Use
Musculoskeletal: No Clubbing, No Cyanosis and No Edema
Neuro: Awake; Negative AO x 3
Psych: Calm and Apparent Dementia; Negative Intact Judgement/Insight
Data Reviewed
-
Labs: Labs Reviewed by me
[2024-12-03 15:20] VITALS: BP 180/74
[2024-12-03 21:02] VITALS: BP 116/75
[2024-12-03] MEDS: TOPROL XL PO (21:10)
[2024-12-03] MEDS: PROTONIX PO (21:10)
[2024-12-03] MEDS: LIPITOR PO (21:10)
[2024-12-04 07:43] VITALS: BP 152/61
[2024-12-04] MEDS: PROTONIX PO (08:42)
[2024-12-04] MEDS: MIRALAX PO (08:42)
[2024-12-04] MEDS: TOPROL XL PO (08:43)
[2024-12-04] MEDS: VITAMIN B-12 PO (08:43)
--- NOTE | 2024-12-04 10:49 | W.PN.HOSP.TC ---
Addendum entered and electronically signed by Cate Simental MD 12/04/24 11:04:
updated daughter on the phone
Original Note:
Today's Communication/Plan
-
see AP
Assessment / Plan
Assessment / Plan
A/P:
# Anemia: Appears to be multifactorial related to iron deficiency, anemia of chronic disease, and B12 deficiency. Cannot rule out GI bleed but does not appear to have active GI bleeding at the moment.
Hemoglobin stable at 8.7
Iron panel noted, cont IV iron infusions if able
low B12 level, started B12 supplementation.
Continue IV PPI twice daily
Hold aspirin for now
GI input appreciated: Given no signs of bleeding and stable hemoglobin given his age and comorbidities will hold on endoscopic evaluation.
# Dementia with sundowning
CT head without contrast on admission no acute change,
Follow up CT head with contrast noted a 1.7 mm focus of asymmetric cortical enhancement along the posterior left frontal lobe which may represent a prominent cortical vein or small metastasis in the setting of reported lung mass.
Rad recommend MRI brain, but I do NOT feel MRI is indicated at this point as it will not change management facilitator
GOC discussion was started, but since pt clinically improved, the plan is now for dispo to dementia unit
CM to facilitate dispo plan
# h/o lung mass
No aggressive Mx per family
# CAD/PVD/CVA:
Holding antiplatelets and cilostazol
Continue statins
# Permanent A-fib:
Continue rate control, metoprolol succinate 50 mg twice a day
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
# Severe protein calorie malnutrition
liberalized to regular diet
DVT prophylaxis: SCDs
CODE STATUS: DNR
Dispo: dementia unit
Anticipated Discharge: Within 24 hours
Subjective/Interval History
-
Date of Service: December 04, 2024
Objective Data
-
Vital Signs:
Vital Signs
Temp Pulse Resp BP Pulse Ox
37.3 C 67 15 152/61 94
12/04/24 07:43 12/04/24 07:43 12/04/24 07:43 12/04/24 07:43 12/04/24 07:43
I&O
12/03/24 12/04/24 12/05/24
06:59 06:59 06:59
Intake Total 2400 / 2400
Balance 2400 / 2400
Review of Systems
-
Unable to obtain full review of systems at this time due to: Dementia
Physical Exam
-
General: Well Developed, Well Nourished, Comfortable and Appears Chronically Ill
HEENT: Normocephalic, Atraumatic and Moist Mucous Membranes
Respiratory: Clear to Auscultation and Non Labored Respirations; Negative Accessory Resp Muscle Use
Musculoskeletal: No Clubbing, No Cyanosis and No Edema
Neuro: Awake; Negative AO x 3
Psych: Calm and Apparent Dementia; Negative Intact Judgement/Insight
Data Reviewed
-
Labs: Labs Reviewed by me
--- NOTE | 2024-12-04 12:29 | W.PN.UPDATE ---
Update Note
Progress Note Update
reviewed chart and spoke with nursing. did not see patient as he is sleeping and it is my understanding family prefers we do not wake him if necessary and that may be a good idea. nursing tells me he was awake earlier and took meds without any
difficulty. he has been calm the whole morning. he takes no psych medications. at this point psych will sign off. please let us know if we need to return.
--- NOTE | 2024-12-04 12:52 | CM ---
CM reviewed chart, placed call to patients daughter, Dannielle, who added patients son in conversation. Family unsure if patient will be successful in rehab, requesting Hospice evaluation. TT to Hospitalist with request, consult placed, referral sent
to hospice, TT to liaison. CM will continue to follow for all discharge planning needs.
Plan; hospice consulted, will await further recommendations
--- NOTE | 2024-12-04 13:08 | HOSPNOTE ---
Spoke with daughter Dannielle and explained hospice and the philosophy. The family is in agreement with comfort measures at this time. We will continue to follow daily and if the patient meets inpatient criteria we will admit on Saturday. Attending and
CM aware.
[2024-12-04 15:11] VITALS: BP 152/63
--- NOTE | 2024-12-04 15:52 | PTOTSP ---
CHART REVIEWED AND SPOKE WITH RN. PATIENT NOW COMFORT MEASURES REQUIRING NO FURTHER SKILLED P.T. AT THIS TIME. CONFIRMED THIS WITH CASE MANAGEMENT WELL. WILL DISCHARGE FROM THERAPY SERVICES.
[2024-12-04] MEDS: PROTONIX 40 MG PO (19:58)
[2024-12-04] MEDS: TOPROL XL 50 MG PO (19:58)
[2024-12-04] MEDS: LIPITOR 10 MG PO (19:58)
[2024-12-04 20:00] VITALS: BP 144/69
[2024-12-05 07:43] VITALS: BP 174/74
[2024-12-05 07:59] VITALS: BP 125/86
[2024-12-05] MEDS: MIRALAX PO (08:52)
[2024-12-05] MEDS: PROTONIX 40 MG PO ×2 (08:52→21:11)
[2024-12-05] MEDS: VITAMIN B-12 1000 MCG PO (08:52)
[2024-12-05] MEDS: TOPROL XL 50 MG PO ×2 (08:53→21:11)
[2024-12-05 15:27] VITALS: BP 143/68
--- NOTE | 2024-12-05 16:03 | W.PN.HOSP.TC ---
Today's Communication/Plan
-
Stable. Awaiting for appropriate outpatient bed.
Assessment / Plan
Assessment / Plan
84 man with complex problems
A/P:
1. Anemia: complex
Appears to be multifactorial related to iron deficiency, anemia of chronic disease, and B12 deficiency.
Cannot rule out GI bleed but does not appear to have active GI bleeding at the moment.
Hemoglobin stable at 8.7
Iron panel noted, cont IV iron infusions if able
low B12 level, started B12 supplementation.
Continue IV PPI twice daily
Hold aspirin for now
GI input appreciated:
Given no signs of bleeding and stable hemoglobin given his age and comorbidities will hold on endoscopic evaluation.
2. Dementia with sundowning
CT head without contrast on admission no acute change,
Follow up CT head with contrast noted a 1.7 mm focus of asymmetric cortical enhancement along the posterior left frontal lobe.
This may represent a prominent cortical vein or small metastasis in the setting of reported lung mass.
GOC discussion was started, but since pt clinically improved, the plan is now for dispo to dementia unit
CM to facilitate dispo plan
3. h/o lung mass
No aggressive Mx per family
4. CAD/PVD/CVA:
Holding antiplatelets and cilostazol
Continue statins
5. Permanent A-fib:
Continue rate control, metoprolol succinate 50 mg twice a day
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
6. Severe protein calorie malnutrition
liberalized to regular diet
DVT prophylaxis: SCDs
CODE STATUS: DNR
Dispo: dementia unit
Anticipated Discharge: 24 - 48 hours
Subjective/Interval History
-
Date of Service: December 05, 2024
No new issues
Objective Data
-
Vital Signs:
Vital Signs
Temp Pulse Resp BP Pulse Ox
98.0 F 70 16 143/68 96
12/05/24 15:27 12/05/24 15:27 12/05/24 15:27 12/05/24 15:27 12/05/24 15:27
I&O
12/04/24 12/05/24 12/06/24
06:59 06:59 06:59
Intake Total 2400 / 2400 390 / 390
Balance 2400 / 2400 390 / 390
Review of Systems
-
History Source: Patient
All other systems: Reviewed and negative
Physical Exam
-
General: Well Developed, No Apparent Distress, Comfortable and Conversant
HEENT: Nose Appears Normal and Ears Appear Normal
Respiratory: Decreased Breath Sounds
Cardiac: Regular Rhythm and Murmur
GI: Soft, Nontender and Nondistended
Musculoskeletal: No Clubbing and No Cyanosis
Skin: Warm and Dry
Neuro: Awake, Alert and Oriented
Psych: Calm
Data Reviewed
-
Labs: Labs Reviewed by me
[2024-12-05] MEDS: LIPITOR 10 MG PO (21:11)
[2024-12-05 23:40] VITALS: BP 151/62
[2024-12-06 06:00] VITALS: BMI 14.6
[2024-12-06 07:56] VITALS: BP 139/91
[2024-12-06] MEDS: PROTONIX 40 MG PO ×2 (09:18→20:20)
[2024-12-06] MEDS: VITAMIN B-12 1000 MCG PO (09:19)
[2024-12-06] MEDS: TOPROL XL 50 MG PO ×2 (09:19→20:20)
[2024-12-06] MEDS: MIRALAX PO (09:19)
--- NOTE | 2024-12-06 13:31 | W.PN.HOSP.TC ---
Today's Communication/Plan
-
Awaiting for appropriate outpatient bed.
Assessment / Plan
Assessment / Plan
84 man with complex problems
A/P:
1. Anemia: complex
Appears to be multifactorial related to iron deficiency, anemia of chronic disease, and B12 deficiency.
Cannot rule out GI bleed but does not appear to have active GI bleeding at the moment.
Hemoglobin stable at 8.7
Iron panel noted, cont IV iron infusions if able
low B12 level, started B12 supplementation.
Continue IV PPI twice daily
Hold aspirin for now
GI input appreciated:
Given no signs of bleeding and stable hemoglobin given his age and comorbidities will hold on endoscopic evaluation.
2. Dementia with sundowning
CT head without contrast on admission no acute change,
Follow up CT head with contrast noted a 1.7 mm focus of asymmetric cortical enhancement along the posterior left frontal lobe.
This may represent a prominent cortical vein or small metastasis in the setting of reported lung mass.
GOC discussion was started, but since pt clinically improved, the plan is now for dispo to dementia unit
CM to facilitate dispo plan
3. h/o lung mass
No aggressive Mx per family
4. CAD/PVD/CVA:
Holding antiplatelets and cilostazol
Continue statins
5. Permanent A-fib:
Continue rate control, metoprolol succinate 50 mg twice a day
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
6. Severe protein calorie malnutrition
liberalized to regular diet
DVT prophylaxis: SCDs
CODE STATUS: DNR
Dispo: dementia unit
Anticipated Discharge: 24 - 48 hours
Subjective/Interval History
-
Date of Service: December 06, 2024
No new issues,
Objective Data
-
Vital Signs:
Vital Signs
Temp Pulse Resp BP Pulse Ox
98.5 F 66 14 139/91 97
12/06/24 07:56 12/06/24 07:56 12/06/24 07:56 12/06/24 07:56 12/06/24 07:56
I&O
12/05/24 12/06/24 12/07/24
06:59 06:59 06:59
Intake Total 390 / 390 660 / 660
Balance 390 / 390 660 / 660
Review of Systems
-
History Source: Patient
All other systems: Reviewed and negative
Physical Exam
-
General: Well Developed, Well Nourished, No Apparent Distress and Comfortable
HEENT: Nose Appears Normal and Ears Appear Normal
Skin: Warm and Dry
Neuro: Other (sleeping comfortably after lunch when I entered the room)
Psych: Calm
Data Reviewed
-
Labs: Labs Reviewed by me
[2024-12-06 16:02] VITALS: BP 139/74
[2024-12-06] MEDS: LIPITOR 10 MG PO (20:20)
[2024-12-06 23:00] VITALS: BP 142/64
[2024-12-07 07:34] VITALS: BP 157/83
[2024-12-07 08:31] LABS: Hemoglobin 9.8 g/dL (13.0-18.0); Mean Corp Hgb Conc. 30.6 g/dL (33.0-37.0); Mean Corpuscular Volume 88.2 fL (80.0-94.0); Mean Platelet Volume 9.5 fL (7.4-10.4); Platelet Count 157 10^3/uL (130-400); Red Blood Cell Count 3.63 10^6/uL (4.70-6.10); Red Cell Dist. Width 18.1 % (11.5-14.5); White Blood Cell Count 8.5 10^3/uL (4.8-10.8)
[2024-12-07] MEDS: TOPROL XL PO ×3 (08:48→20:57)
[2024-12-07] MEDS: PROTONIX PO ×3 (08:48→20:56)
[2024-12-07] MEDS: VITAMIN B-12 PO ×2 (08:49→11:38)
[2024-12-07] MEDS: MIRALAX PO (08:50)
--- NOTE | 2024-12-07 08:59 | W.PN.HOSP.TC ---
Today's Communication/Plan
-
Discharge planning in progress
Assessment / Plan
Assessment / Plan
Physical exam:
General: Chronically ill
HEENT: Normocephalic, Atraumatic and Moist Mucous Membranes
Respiratory: Clear to Auscultation; Negative Wheezes, Rales or Rhonchi
Cardiac: Regular Rhythm and S1/S2
GI: Soft, Nontender and Nondistended
Musculoskeletal: No Clubbing, No Cyanosis and No Edema
Neuro: Awake, Alert and Disoriented, no neurological deficit
Psych: Calm
84 man with complex problems
A/P:
1. Anemia: complex
Appears to be multifactorial related to iron deficiency, anemia of chronic disease, and B12 deficiency.
Cannot rule out GI bleed but does not appear to have active GI bleeding at the moment.
Hemoglobin stable at 9.8 today
Iron panel noted, status post IV iron infusions. Will start oral iron upon discharge.
low B12 level, started B12 supplementation. Continue B12 upon discharge
Continue PPI twice daily
Tolerating aspirin
GI input appreciated:
Given no signs of bleeding and stable hemoglobin given his age and comorbidities will hold on endoscopic evaluation.
2. Dementia with sundowning
CT head without contrast on admission no acute change,
Follow up CT head with contrast noted a 1.7 mm focus of asymmetric cortical enhancement along the posterior left frontal lobe.
This may represent a prominent cortical vein or small metastasis in the setting of reported lung mass. No antipsychotics needed per psychiatry input.
GOC discussion was started, but since pt clinically improved, the plan is now for dispo to dementia unit and can reconsider hospice as outpatient. PT OT reordered as requested by CM.
CM to facilitate dispo plan
3. h/o lung mass
No aggressive Mx per family
4. CAD/PVD/CVA:
Holding antiplatelets and cilostazol. Restart cilostazol upon discharge. Continue aspirin alone upon discharge.
Continue statins
5. Permanent A-fib:
Continue rate control, metoprolol succinate 50 mg twice a day
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
6. Severe protein calorie malnutrition
liberalized to regular diet
DVT prophylaxis: SCDs
CODE STATUS: DNR
Dispo: dementia unit
Anticipated Discharge: Today
Subjective/Interval History
-
Date of Service: December 07, 2024
No new events. Afebrile
Objective Data
-
Labs:
Laboratory Results
12/07/24
07:39
WBC 8.5
Hgb 9.8 L
Hct 32.0 L
Plt Count 157
Sodium Pending
Potassium Pending
Chloride Pending
Carbon Dioxide Pending
BUN Pending
Creatinine Pending
Glucose Pending
Calcium Pending
Vital Signs:
Vital Signs
Temp Pulse Resp BP Pulse Ox
97.2 F 70 20 157/83 98
12/07/24 07:34 12/07/24 08:48 12/07/24 07:34 12/07/24 08:48 12/07/24 07:34
I&O
12/06/24 12/07/24 12/08/24
06:59 06:59 06:59
Intake Total 660 / 660 960 / 960
Balance 660 / 660 960 / 960
[2024-12-07 09:12] LABS: Blood Urea Nitrogen 13 mg/dl (9-20); Calcium 8.6 mg/dl (8.4-10.2); Carbon Dioxide 28 mmol/L (22-30); Chloride 106 mmol/L (98-107); Estimated Creatinine Clearance 56 ml/min; Glucose 95 mg/dl (70-99); Potassium 4.2 mmol/L (3.5-5.1); Sodium 140 mmol/L (135-145); eGFR > 60.00
--- NOTE | 2024-12-07 12:00 | PTCARENOTE ---
pt refused all oral medications and all thinkened liquids. notified. Speech to see pt again. Will continue to monitor.
--- NOTE | 2024-12-07 13:31 | CM ---
Patient seen bedside.
Left VM for spouse, await return call.
TC to daughter Dannielle and she added brother Emile to call.
They would prefer skilled rehab and may look into memory care units. CM reviewed options and referrals placed.
They would like skilled rehab referrals placed and prefer not to return to [facility].
PT/OT ordered and pending.
Plan: skilled rehab once bed available.
[2024-12-07 14:02] VITALS: BP 125/61; BP 168/66; O2SAT 97
[2024-12-07 14:15] VITALS: BP 125/61; BP 168/66; PULSE 64; O2SAT 97
[2024-12-07 16:04] VITALS: BP 149/74
--- NOTE | 2024-12-07 16:13 | PTOTSP ---
Dysphagia Evaluation
Clinical bedside swallowing evaluation limited by patient behaviors/agitation and eventual refusal. Patient with a history of mild pharyngeal dysphagia (video swallow study 2009). Signs concerning for dysphagia/aspiration w/ thin liquids reported
this admission. Current dysphagia severity unknown (refused full eval today; refused video swallow 10/2024).
Patient refusing thickened liquids and requesting thin liquids. Patient with baseline dementia and may not be able to make this medical decision. Will defer to MD at present given limited evaluation and re-attempt assessment as able/appropriate.
See patient care note for details.
[2024-12-07] MEDS: LIPITOR PO ×2 (21:08→21:09)
[2024-12-07 23:09] VITALS: BP 142/70
[2024-12-08 05:33] VITALS: BMI 14.2
[2024-12-08 07:27] VITALS: BP 149/86
--- NOTE | 2024-12-08 08:36 | W.PN.HOSP.TC ---
Addendum entered and electronically signed by Fabian Lowry MD 12/08/24 15:26:
discussed with over the phone today
Original Note:
Today's Communication/Plan
-
Discharge planning
Assessment / Plan
Assessment / Plan
Physical exam:
General: Chronically ill
HEENT: Normocephalic, Atraumatic and Moist Mucous Membranes
Respiratory: Clear to Auscultation; Negative Wheezes, Rales or Rhonchi
Cardiac: Regular Rhythm and S1/S2
GI: Soft, Nontender and Nondistended
Musculoskeletal: No Clubbing, No Cyanosis and No Edema
Neuro: Awake, Alert and Disoriented, no neurological deficit
Psych: Calm
84 man with complex problems
A/P:
1. Anemia: complex
Appears to be multifactorial related to iron deficiency, anemia of chronic disease, and B12 deficiency.
Cannot rule out GI bleed but does not appear to have active GI bleeding at the moment.
Hemoglobin stable at 9.8 today
Iron panel noted, status post IV iron infusions. Will start oral iron upon discharge.
low B12 level, started B12 supplementation. Continue B12 upon discharge
Continue PPI twice daily
Tolerating aspirin
GI input appreciated:
Given no signs of bleeding and stable hemoglobin given his age and comorbidities will hold on endoscopic evaluation.
2. Dementia with sundowning
CT head without contrast on admission no acute change,
Follow up CT head with contrast noted a 1.7 mm focus of asymmetric cortical enhancement along the posterior left frontal lobe.
This may represent a prominent cortical vein or small metastasis in the setting of reported lung mass. No antipsychotics needed per psychiatry input.
GOC discussion was started, but since pt clinically improved, the plan is now for dispo to dementia unit and can reconsider hospice as outpatient. PT OT reordered as requested by CM.
CM to facilitate dispo plan
3. h/o lung mass
No aggressive Mx per family
4. CAD/PVD/CVA:
Holding antiplatelets and cilostazol. Restart cilostazol upon discharge. Continue aspirin alone upon discharge.
Continue statins
5. Permanent A-fib:
Continue rate control, metoprolol succinate 50 mg twice a day
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
6. Severe protein calorie malnutrition
liberalized to regular diet
DVT prophylaxis: SCDs
CODE STATUS: DNR
Dispo: dementia unit
Anticipated Discharge: Within 24 hours
Subjective/Interval History
-
Date of Service: December 08, 2024
no new complaints
Objective Data
-
Vital Signs:
Vital Signs
Temp Pulse Resp BP Pulse Ox
98.1 F 72 18 149/86 97
12/08/24 07:27 12/08/24 07:27 12/08/24 07:27 12/08/24 07:27 12/08/24 07:27
I&O
12/07/24 12/08/24 12/09/24
06:59 06:59 06:59
Intake Total 960 / 960 110 / 110
Balance 960 / 960 110 / 110
[2024-12-08] MEDS: VITAMIN B-12 PO ×2 (08:57→09:08)
[2024-12-08] MEDS: PROTONIX PO ×2 (08:57→09:07)
[2024-12-08] MEDS: TOPROL XL PO ×2 (08:57→09:07)
[2024-12-08] MEDS: MIRALAX PO (09:08)
[2024-12-08 15:17] VITALS: BP 119/59
--- NOTE | 2024-12-08 16:04 | CM ---
Addendum entered by Ml Munoz 12/08/24 16:24:
Conferenced in talent acquisition manager with brother. He would like to get his father somewhere else than [facility].
Son is on his way to the hospital to visit with dad.
Son wanted to know if his dad was on hospice if it would be easier to get him into a facility.
CM explained room and board are not covered under hospice and also explained longterm care.
Original Note:
Spoke with patient bedside.
He would like to speak with his daughter.
Patient very frustrated. Then calmed down after speaking to patient for a few minutes and patient said thank you for helping him.
TC to daughter and left VM.
Return call from daughter, reviewed facilities and facilities unable to accept.
Daughter would prefer a different facility than where he was prior to admission.
Additional information sent to [facility].
Daughter will discuss with her brother and step mother.
Daughter will call her dad per his request.
Plan: skilled rehab once medically stable and bed available
[2024-12-08] MEDS: ASPIR LOW (ENTERIC COATED) 81 MG PO (19:56)
[2024-12-08] MEDS: TOPROL XL 50 MG PO (19:56)
[2024-12-08] MEDS: PROTONIX 40 MG PO (19:56)
[2024-12-08] MEDS: LIPITOR 10 MG PO (19:56)
[2024-12-08 23:45] VITALS: BP 133/66
[2024-12-09 00:20] VITALS: BP 133/66
[2024-12-09 07:05] VITALS: BP 161/74
[2024-12-09] MEDS: TOPROL XL PO (08:00)
--- NOTE | 2024-12-09 08:37 | W.PN.HOSP.TC ---
Today's Communication/Plan
-
Discharge planning today
Assessment / Plan
Assessment / Plan
Physical exam:
General: Chronically ill
HEENT: Normocephalic, Atraumatic and Moist Mucous Membranes
Respiratory: Clear to Auscultation; Negative Wheezes, Rales or Rhonchi
Cardiac: Regular Rhythm and S1/S2
GI: Soft, Nontender and Nondistended
Musculoskeletal: No Clubbing, No Cyanosis and No Edema
Neuro: Awake, Alert and Disoriented, no neurological deficit
Psych: Calm
84 man with complex problems
A/P:
1. Anemia: complex
Appears to be multifactorial related to iron deficiency, anemia of chronic disease, and B12 deficiency.
Cannot rule out GI bleed but does not appear to have active GI bleeding at the moment.
Hemoglobin stable at 9.8 today
Iron panel noted, status post IV iron infusions. Will start oral iron upon discharge.
low B12 level, started B12 supplementation. Continue B12 upon discharge
Continue PPI twice daily
Tolerating aspirin
GI input appreciated:
Given no signs of bleeding and stable hemoglobin given his age and comorbidities will hold on endoscopic evaluation.
2. Dementia with sundowning
CT head without contrast on admission no acute change,
Follow up CT head with contrast noted a 1.7 mm focus of asymmetric cortical enhancement along the posterior left frontal lobe.
This may represent a prominent cortical vein or small metastasis in the setting of reported lung mass. No antipsychotics needed per psychiatry input. Discussed with today.
GOC discussion was started, but since pt clinically improved, the plan is now for dispo to dementia unit and can reconsider hospice as outpatient. PT OT reordered as requested by CM.
CM to facilitate dispo plan
3. h/o lung mass
No aggressive Mx per family
4. CAD/PVD/CVA:
Holding antiplatelets and cilostazol. Restart cilostazol upon discharge. Continue aspirin alone upon discharge.
Continue statins
5. Permanent A-fib:
Continue rate control, metoprolol succinate 50 mg twice a day
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
6. Severe protein calorie malnutrition
liberalized to regular diet
DVT prophylaxis: SCDs
CODE STATUS: DNR
Dispo: dementia unit
Anticipated Discharge: Today
Subjective/Interval History
-
Date of Service: December 09, 2024
No new complaints
Objective Data
-
Vital Signs:
Vital Signs
Temp Pulse Resp BP Pulse Ox
99.1 F 78 17 161/74 98
12/09/24 07:05 12/09/24 07:05 12/09/24 07:05 12/09/24 07:05 12/09/24 07:05
I&O
12/08/24 12/09/24 12/10/24
06:59 06:59 06:59
Intake Total 110 / 110 350 / 350
Balance 110 / 110 350 / 350
--- NOTE | 2024-12-09 08:59 | CM ---
Addendum entered by Ml Munoz 12/09/24 12:08:
Spoke with daughter Dannielle, IMM reviewed and emailed to her.
Lizeth Spicer requested facility notifiy them before they sedate patient, Eleni from [facility] updated and will notifiy DON.
Spoke with spouse, updated re d/c to [facility] today at 1:30.
Addendum entered by Ml Munoz 12/09/24 09:40:
Left VM on spouses home phone and cell phone, await tcb.
Original Note:
VM received from lizeth Spicer, we spoke via phone yesterday.
Daughter and her brother are in agreement with back to [facility] rehab and will work with SS there if they need to transfer.
Spoke with [facility] and updated clinicals sent via [facility].
Will reach out to spouse and confirm above.
Plan: [facility] ambulance transport once medically stable.
Ambulance transport forms completed, will place on chart.
[facility]
Report# [phone]
[2024-12-09] MEDS: VITAMIN B-12 PO (10:18)
[2024-12-09] MEDS: MIRALAX PO (10:18)
[2024-12-09] MEDS: PROTONIX PO (10:18)
--- NOTE | 2024-12-09 10:35 | W.DCSUMMARY ---
Discharge Summary
Discharge Data
Date of Admission: 11/28/24
Date of Discharge: 12/09/24
-
Pending Results: No
Hospital Course
Patient 84 years old male with history of dementia, CAD, PVD, A-fib, CVA, came into the hospital with fall and found to be anemic. Patient had FOBT positive in the ED. He was placed on PPI and GI consulted. Anemia workup revealed iron deficiency
and B12. He had B12 supplementation and IV iron infusions. He will be continued on oral B12 and oral iron upon discharge. GI discussed with patient's family given that he remained relatively stable any endoscopic procedure would be high risk for
rehab and they decided with conservative management. His hemoglobin has remained stable. His aspirin and cilostazol has been restarted. He did have issues with dysphagia and speech therapy has seen him and recommended some restriction on his
diet. He will need to be reevaluated as outpatient or consider hospice evaluation as outpatient. Hospice staff discussed with patient and family is not ready to transition to hospice at this point. Some antipsychotic used in the beginning of his
hospitalization but later on this was discontinued. His behavior was able to be managed without any sedatives or antipsychotics. He was seen by psychiatry during this hospital stay. Patient is hemodynamically stable and he will be discharged to
SNF today.
Discharge duration: 35 minutes
Discharge Plan
-
Patient Disposition: [facility]/SNF
Discharge Diagnosis/Procedures: Anemia-multifactorial etiology iron deficiency and B12 deficiency. Dementia with sundowning.
Diet: Other diet
Additional Diets: Regular diet with thickened liquid (mildly thick) until reevaluated by speech therapy as outpatient
Activity: As tolerated
Blood Work: Please PCP to order CBC, BMP within 1 week
Referrals:
Primary care, provider [Other] - in less than 1 week
()
Greg Dumas MD [Active] - in four to six weeks
Maile Alfonso DO [Active] - in two to four weeks
Prescriptions:
New
cyanocobalamin (vitamin B-12) [Vitamin B-12] 1,000 mcg Tablet
1,000 mcg PO DAILY 30 Days Qty: 30 0RF
pantoprazole 40 mg Tablet,Delayed Release (Dr/Ec)
40 mg PO BID 30 Days Qty: 60 0RF
ferrous sulfate 325 mg (65 mg iron) tablet
325 mg PO DAILY Qty: 30 0RF
Continued
aspirin 81 MG tablet,delayed release (DR/EC)
81 mg PO HS
simvastatin 20 MG tablet
20 mg PO HS
cilostazol 100 MG tablet
100 mg PO BID
metoprolol succinate [Toprol XL] 50 mg Tablet Extended Release 24 Hr
50 mg PO BID
polyethylene glycol 3350 17 gram Powder In Packet
17 g PO DAILY Qty: 30 0RF
acetaminophen [Tylenol] 325 mg Tablet
650 mg PO Q6HPRN PRN (Reason: mild pain)
magnesium hydroxide [Milk of Magnesia] 400 mg/5 mL Suspension
2,400 mg PO DAILYPRN PRN (Reason: if no bm by 3rd day)
bisacodyl [Dulcolax (bisacodyl)] 10 mg Suppository
10 mg MD DAILYPRN PRN (Reason: if no bm aftr mom)
Discontinued
famotidine 20 mg Tablet
20 mg PO DAILY Qty: 20 0RF
Discharge Orders:
Discharge Patient (As Directed); Ordered 12/09/24
Ordered By: Fabian Lowry
Discharge Date and Time
Discharge Date/Time: 12/09/24 14:28
Print Language: RWANDAN
--- NOTE | 2024-12-09 13:00 | PTCARENOTE ---
Phone number called for report: [phone] to [facility]. Called twice, front end web designer answered and transferred to nurses station where there was no answer either time. Left message with number to call back.
[2024-12-09 13:30] VITALS: BP 115/65
== END 2024-12-09 14:28 | DRG 377 ==
LOC: 3 WEST ACU 18:19
PROVIDERS: Emergency Medicine; Internal Medicine; Registered Nurse; ADMITTING PHYSICIAN Hospitalist; CONSULT PHYSICIAN Internal Medicine Gastroenterology; EMERGENCY PHYSICIAN Emergency Medicine
DX: K92.1 Melena (principal); E43 Unspecified severe protein-calorie malnutrition; I48.21 Permanent atrial fibrillation; Z68.1 Body mass index [BMI] 19.9 or less, adult; I42.9 Cardiomyopathy, unspecified; F03.911 Unspecified dementia, unspecified severity, with agitation; F05 Delirium due to known physiological condition; D62 Acute posthemorrhagic anemia; D50.9 Iron deficiency anemia, unspecified; I10 Essential (primary) hypertension; R13.10 Dysphagia, unspecified; E53.8 Deficiency of other specified B group vitamins; Z66 Do not resuscitate; Z79.02 Long term (current) use of antithrombotics/antiplatelets
CPT/HCPCS: 70450; 70470; 71046; 80048; 80053; 82607; 82728; 82746; 83540; 83550; 83735; 85014; 85018; 85025; 85027; 86850; 86900; 86901; 87070; 92526; 92610; 93005; 96374; 97116; 97162; 97164; 97166; 97168; 97530; 97535; 99285; J2358; J2916; Q9967

== ENCOUNTER 2024-12-17 15:50 | Inpatient (IN) | payer MEDICARE, SELFPAY ==
[2024-12-17] VITALS (18 sets, daily range): BP systolic 84–150; BP diastolic 35–84; BMI 20.2
--- NOTE | 2024-12-17 13:09 | ED.GENMED ---
History of Present Illness
General
Chief Complaint: Weakness
Source: ambulance crew
Time Seen by Provider: 12/17/24 12:54
History of Present Illness
History of Present Illness:
84-year-old male sent to the emergency room from [facility]. Staff state the patient is more lethargic than his normal self. He is noted to have a productive cough. Patient is unable to provide any history. Chart reflects that he
has significant dementia. He was discharged from this hospital on December 09 after an admission for symptomatic anemia. It appears patient has had several hospitalizations over the past few months.
Past History
Past History
ED Past Medical History: CAD, Cancer (Kidney), CVA, HTN, Hypercholesterolemia and Other (Carotid stenosis, emyphysema)
ED Past Surgical History: Cardiac (Stents X1) and Urological (right nephrectomy)
Social History
Tobacco: Smoker
Alcohol: Occasional
Drug: None
Personal:
Living: with family
Phy Exam
Physical Exam
Physical Exam:
General: Sleeping but arousable, cachectic and chronically ill-appearing
Vitals: Tachycardic
Head: Atraumatic
Eyes: Pupils equal, EOMI
Throat: Airway intact, no exudates
Neck: Trachea midline
Lungs: Extensive bilateral wheezing
Heart: Regular rate, no murmurs
Abd: Soft, Nontender, No pulsatile mass
Neuro: Grossly nonfocal
Skin: Warm, dry, no rash
Extremities: pulses equal b/l, no edema
Sepsis
Sepsis Screening
Sepsis Assessment: Sepsis
Sepsis Screen
Sepsis Screen: Sepsis
Date: 12/17/24
Time: 16:03
Course
Orders/Labs/Results
Orders:
Orders
12/17/24 13:01
Electrocardiogram (*1) Urgent
Reason for Study: Other
Other Reason for Exam: Respiratory Distress
CR Chest Portable - 1 View Urgent
Comment:
Reason For Exam: sob
Reason Study Needs to be Portable: Other
If Reason is Other, explain: O2
12/17/24 13:07
EKG- Treatment ONCE
12/17/24 13:08
Complete Blood Count/With Diff Urgent
Comprehensive Metabolic Panel Urgent
Lactic Acid Urgent
Blood Culture Q20M
MILA Source: Blood/Venous
Specimen Description:
Comment: Urgent from separate sites. If patient screens positive for possible sepsis
12/17/24 13:11
COVID-19 Antigen Urgent
Source: Nasal Swab
Venous Blood Gas Urgent
%Oxygen/Room Air: 92
Comment: on 3 L
Blood Culture Q20M
MILA Source: Blood/Venous
Specimen Description:
Comment: Urgent from separate sites. If patient screens positive for possible sepsis
Influenza A+B Rapid Molecular Urgent
MILA Source: Nasal Swab
Specimen Description:
12/17/24 13:13
Dexamethasone Sod Phosphate [Decadron] 10 mg IV NOW STA
Ipratropium/Albuterol Sulfate [Duoneb] 3 ml INH R NOW ONE
12/17/24 14:22
0.9% Sodium Chloride 500 ml [Nss] 500 ml IV BOLUS
12/17/24 15:33
0.9% Sodium Chloride 500 ml [Nss] 500 ml IV BOLUS
12/17/24 15:37
Admit/Transfer Patient As Directed
Co-Sign Provider:
Level of Care: Inpatient admission
Assign to:: Telemetry
Physician / Group: Andrew Pizano
Diagnosis: influenza A, hypoxic respiratory insufficiency, COPD exacerbation
Reason for Telemetry: Arrhythmia
Date to Stop Telemetry: 12/20/24
Time to Stop Telemetry: 11:00
Reason for Hospitalization: influenza A, hypoxic respiratory insufficiency, COPD exacerbation
Expected length of stay greater than two midnights?: Yes
ELOS- Estimated Length of Stay in days: 3
I certify the patient meets the requirements for IP care: Yes
PRN Pain Medication Management As Directed
May give lesser potent ordered pain med per pt: Yes
preference::
Protocol:: Medication orders for pain may be administered in a
manner that supports deferring to patient preference
when the pt is:
- Requesting an ordered lesser potent pain medication.
Least to most potent pain medications are defined
as: acetaminophen < NSAID < tramadol < opioids
(morphine, oxycodone, hydromorphone).
- Requesting a lesser dose of the same medication IF
ORDERED.
- Requesting a less intrusive route of administration
if both routes are prescribed by the provider (PO <
IV).
12/17/24 15:38
Code Status As Directed
Resuscitation Status: Do not resuscitate
Based on pt advanced directive or healthcare POA form: Yes
12/17/24 15:39
DNR Bracelet Application ONCE
12/20/24 11:00
DC Protocol for Telemetry ONCE
Abnormal Lab Results
12/17/24 12/17/24
13:08 13:11
RBC 4.60 L 10^6/uL
(4.70-6.10)
Hgb 12.3 L g/dL
(13.0-18.0)
MCH 26.7 L pg
(27.0-31.0)
MCHC 31.1 L g/dL
(33.0-37.0)
RDW 17.6 H %
(11.5-14.5)
Absolute Lymphs (auto) 0.3 L 10^3/uL
(1.2-3.4)
Neutrophils % 85.4 H %
(42.2-75.2)
Lymphocytes % 5.1 L %
(20.5-51.1)
VBG pO2 75 H mmHg
(30-50)
VBG HCO3 27.8 H mmol/L
(22-27)
Glucose 126 H mg/dl
(70-99)
Alkaline Phosphatase 141 H U/L
(38-126)
12/17/24 13:08
12/17/24 13:08
Vital Signs
Initial and Last Documented VS:
Initial Vital Signs
Temp Pulse Resp BP Pulse Ox
99.6 F 116 24 150/62 84
12/17/24 12:35 12/17/24 12:35 12/17/24 12:35 12/17/24 12:35 12/17/24 12:35
Last Documented Vital Signs
Temp Pulse Resp BP Pulse Ox
99.6 F 116 33 84/42 92
12/17/24 12:35 12/17/24 14:30 12/17/24 14:30 12/17/24 14:30 12/17/24 14:30
MDM/Problems Addressed
Differential Diagnosis Includes:
Pneumonia, COPD exacerbation, UTI, sepsis
MDM/Problems Addressed:
Patient presents with cough, wheezing and being less interactive than normal. CBC shows a normal white count and essentially normal hemoglobin. His chemistries are not reassuring. A VBG was obtained given he has wheezing and decreased mental
status. His pH is normal as is his pco2. He did not have a fever on rectal temp. Patient treated with nebs with some improvement in his wheezing. He was given a dose of Decadron as well. Chest x-ray does not show any significant infiltrate.
Patient is positive for influenza. Given patient's weakness, hypoxia he will require hospitalization
*Radiology
Radiology exam reviewed: preliminary read by ED provider (No significant change in my review)
*Pulse Oximetry
Patient hypoxic: yes
*EKG
Interpreted by ED Provider?: Yes
Heart Rate: 111
Rate: tachycardiac
Rhythm: a-fib and PVC's
[place]: normal axis
Interval: normal interval
QRS Pattern: normal QRS
Ischemia: non-specific ST changes
*Admissions Advisor Interpretation
Rate: tachycardiac
Heart Rate: 111
Rhythm: a-fib and PVC's
*Critical Care Note
Total Time (30-74mins, 75-104mins- exclusive of procedures): 33 min
comment:
Critical care statement: A total of 33 minutes of critical care time was provided for this patient. This includes management of unstable vital signs, evaluation of the patient at bedside, reviewing the patient's pertinent medical records, discussion
with consultants, review of old EKGs and review of pertinent medical records. This time with separate from time utilized to perform the aforementioned documented procedures
Data Reviewed
Review of Other/Old Records Reveals: Labs and Discharge Summary
Patient Management
Social determinants of health affecting care: Living situation
ED Attending Note
-
Portions of this chart may have been created with voice recognition software.� Occasional wrong word or��sound alike� substitutions may have occurred due to the inherent limitations of voice recognition software.
Discharge Plan
Departure
Patient Disposition: Admit
Date of Disposition: 12/17/24
Time of Disposition: 15:01
Admit to: Med/Surg
Presentation/result/management discussed w/ accepting MD/DO: Hospitalist
Condition: Fair
Discharge Problem:
Influenza A, Chronic obstructive pulmonary disease with acute exacerbation, Hypoxia
Interventions
Interventions:
*Risk Screen - Suicide Last Done: 12/17/24 12:35
*General Assessment Last Done: 12/17/24 12:35
*Neglect/Abuse Screening Last Done: 12/17/24 12:35
*ED- Fall Risk Assessment Last Done: 12/17/24 12:35
ED- Cardiac Assessment Last Done: 12/17/24 13:00
ED- Neurological Assessment Last Done: 12/17/24 12:35
ED- Pulmonary Assessment Last Done: 12/17/24 12:35
[2024-12-17] MEDS: DECADRON 10 MG IV (13:16)
[2024-12-17] MEDS: DUONEB 3 ML INH (13:16)
[2024-12-17 13:26] LABS: % Basophils 0.7 % (0-2); % Immature Granulocytes 0.4 % (0-0.5); % Lymphocytes 5.1 % (20.5-51.1); % Monocytes 8.4 % (1.7-9.3); % Neutrophils 85.4 % (42.2-75.2); Absolute Lymphocytes 0.3 10^3/uL (1.2-3.4); Absolute Monocytes 0.5 10^3/uL (0.1-0.6); Absolute Neutrophils 4.6 10^3/uL (1.4-6.5); Hematocrit 39.5 % (39.0-52.0); Hemoglobin 12.3 g/dL (13.0-18.0); Mean Corp Hgb Conc. 31.1 g/dL (33.0-37.0); Mean Corpuscular Hgb 26.7 pg (27.0-31.0); Mean Corpuscular Volume 85.9 fL (80.0-94.0); Mean Platelet Volume 9.3 fL (7.4-10.4); Nucleated Red Blood Cells % 0 % (-); Platelet Count 227 10^3/uL (130-400); Red Cell Dist. Width 17.6 % (11.5-14.5); White Blood Cell Count 5.3 10^3/uL (4.8-10.8)
[2024-12-17 13:28] LABS: Venous Blood Gas B.E. 2.1 mmol/L (-4 to +4); Venous Blood Gas HCO3 27.8 mmol/L (22-27); Venous Blood Gas O2 Sat % 96.1 %; Venous Blood Gas pCO2 47 mmHg (35-48); Venous Blood Gas pH 7.38 (7.32-7.43); Venous Blood Gas pO2 75 mmHg (30-50)
[2024-12-17 13:43] LABS: ALT (SGPT) 13 U/L (0-50); AST (SGOT) 21 U/L (17-59); Albumin 3.8 g/dl (3.5-5.0); Alkaline Phosphatase 141 U/L (38-126); Blood Urea Nitrogen 13 mg/dl (9-20); Calcium 9.4 mg/dl (8.4-10.2); Carbon Dioxide 26 mmol/L (22-30); Chloride 100 mmol/L (98-107); Glucose 126 mg/dl (70-99); Potassium 4.2 mmol/L (3.5-5.1); Sodium 139 mmol/L (135-145); Total Bilirubin 1.2 mg/dl (0.2-1.3); Total Protein 7.1 g/dl (6.3-8.2); eGFR > 60.00
[2024-12-17 13:53] LABS: COVID-19 Antigen Negative (Negative)
[2024-12-17] MEDS: NSS 500 IV ×2 (14:36→16:06)
--- NOTE | 2024-12-17 15:06 | HPS.HSE ---
Family Physician
-
Family Physician: Martin Montiel MD
Chief Complaint
-
increased lethargy
History of Present Illness
Patient is a 84-year-old male with past medical history significant for dementia, hypertension, hypercholesterolemia, proximal atrial fibrillation, CAD, carotid artery stenosis, peripheral vascular disease, kidney Ca s/p R nephrectomy and Hx CVA
presented to [facility] ED from [facility] for evaluation of increased lethargy. Patient is poor historian with severe dementia and does not offer any information for HPI. Patient wakes to tactile stimuli and goes right back to sleep.
Medical History
Past Medical History
Past Medical History: Reports Other
Additional Past Medical History:
dementia
hypertension
hypercholesterolemia
proximal atrial fibrillation
CAD
carotid artery stenosis
peripheral vascular disease
kidney Ca s/p R nephrectomy
Hx CVA
Past Surgical History: Reports Urological
Additional Past Surgical History:
Right nephrectomy
Cardiac Cath with Stent 05/17/2015
Social History
Tobacco: Smoker
Alcohol: None
Drug: None
Personal:
Living: With Family
Employment: Retired
Family History
Family History: Not pertinent
Allergies / Home Medications
Allergies reflects when Allergies were last updated in [employer].
Home Medications with original date entered in [employer]
Allergy/Medication List:
Allergies
Allergy/AdvReac Type Severity Reaction Status Date / Time
No Known Allergies Allergy Verified 12/17/24 12:36
Home Medications
aspirin 81 mg tablet,delayed release 81 mg PO DAILY Blood Clot Prevention/Tx 09/30/12
simvastatin 20 mg tablet 20 mg PO HS High Cholesterol 05/02/15
cilostazol 100 mg tablet 100 mg PO BID Blood Clot Prevention/Tx 08/12/19
metoprolol succinate 50 mg tablet,extended release 24 hr (Toprol XL) 50 mg PO BID Blood Pressure 10/02/24
polyethylene glycol 3350 17 gram oral powder packet 17 g PO DAILY #30 ea 10/09/24
acetaminophen 325 mg tablet (Tylenol) 650 mg PO Q6HPRN PRN mild pain 11/28/24
bisacodyl 10 mg rectal suppository (Dulcolax (bisacodyl)) 10 mg IN DAILYPRN PRN if no bm aftr mom 11/28/24
magnesium hydroxide 400 mg/5 mL oral suspension (Milk of Magnesia) 2,400 mg PO DAILYPRN PRN if no bm by 3rd day 11/28/24
cyanocobalamin (vitamin B-12) 1,000 mcg tablet (Vitamin B-12) 1,000 mcg PO DAILY 30 days #30 tabs 12/07/24
ferrous sulfate 325 mg (65 mg iron) tablet 325 mg PO DAILY #30 tabs 12/07/24
pantoprazole 40 mg tablet,delayed release 40 mg PO BID 30 days #60 tabs 12/07/24
Review of Systems
-
Unable to obtain full review of systems at this time due to: Dementia
Physical Exam
Vital Signs
Vital Signs
Temp Pulse Resp BP Pulse Ox
99.6 F 116 33 84/42 92
12/17/24 12:35 12/17/24 14:30 12/17/24 14:30 12/17/24 14:30 12/17/24 14:30
Physical Exam
General: Well Developed, No Apparent Distress and Cachectic
HEENT: NormoCephalic, Moist mucous membranes, Atraumatic, Nose Appears Normal and Ears Appear Normal
Respiratory: Clear, Crackles and Decreased Breath Sounds
Cardiac: S1/S2, Irregular Rhythm, Tachycardia and Murmur
Breast: Deferred by me
GI: Soft, Non Tender and Non Distended
Rectal: Deferred by Provider
Genito-urinary: Deferred by me
Musculoskeletal: No Clubbing, No Cyanosis and No Edema
Skin: IV/Catheter Site
Neuro: Sedated
Psych: Apparent Dementia
Laboratory Results
-
12/17/24 13:08
12/17/24 13:08
Laboratory Results
Lactic Acid 2.0 mmol/L (0.7-2.0) 12/17/24 13:08
Total Bilirubin 1.2 mg/dl (0.2-1.3) 12/17/24 13:08
AST 21 U/L (17-59) 12/17/24 13:08
ALT 13 U/L (0-50) 12/17/24 13:08
Alkaline Phosphatase 141 U/L (38-126) H 12/17/24 13:08
Data Reviewed
-
Diagnostic Radiology: Report Reviewed by me (CXR: There has been no significant change from prior study. There is a mass in the left upper lobe worrisome for malignancy. There are changes consistent with emphysema, noted on CT)
Medical Tests (Nuc Med, Echo, EKG etc): Report Reviewed by me (EKG: ATRIAL FIBRILLATION WITH RAPID VENTRICULAR RESPONSE WITH PREMATURE VENTRICULAR OR ABERRANTLY CONDUCTED COMPLEXES NONSPECIFIC ST AND T WAVE ABNORMALITY)
Lab Data: Labs Reviewed by me (WBC 5.3, hgb 12.3, hct 39.5, Neut 85.4, Flu A positive, )
Impression/Plan
-
IMPRESSION/PLAN:
#weakness
WBC 5.3, Neut 85.4
Covid: Negative
Influenza: A positive
CXR: There has been no significant change from prior study. There is a mass in the left upper lobe worrisome for malignancy. There are changes consistent with emphysema, noted on CT
Blood Cx: pending
- Admit to telemetry
- Tamilflu
- supportive care
#suspected COPD exacerbation
#hypoxic respiratory insufficiency
smoking history
- dexamethasone
- DuoNeb QID
#hypertension
- hold metoprolol in setting of hypotension
#hypercholesterolemia
- continue simvastatin
#proximal atrial fibrillation
EKG: ATRIAL FIBRILLATION WITH RAPID VENTRICULAR RESPONSE WITH PREMATURE VENTRICULAR
OR ABERRANTLY CONDUCTED COMPLEXES
NONSPECIFIC ST AND T WAVE ABNORMALITY
- hold metoprolol in setting of hypotension
#anemia
hgb 12.3, hct 39.5
- monitor h/h
- continue ferrous sulfate
#Hx CVA
- continue aspirin and cilostazol
#CAD
#dementia
#carotid artery stenosis
#peripheral vascular disease
#kidney Ca s/p R nephrectomy
Code status: DNR
DVT prophylaxis: Lovenox sq
--- NOTE | 2024-12-17 15:31 | W.PN.UPDATE ---
Update Note
Progress Note Update
This is an addendum to the H&P written by Holli Reynolds on 12/17/2024. Patient seen and examined independently with ANAESTHETIC TECHNICIAN.
84-year-old male past medical history of CAD status post stent, carotid artery stenosis, PAD,, permanent atrial fibrillation, CVA, hypertension, dementia, hypercholesteremia, kidney cancer status post right nephrectomy, lung mass, anemia, tobacco
use disorder, presenting from [facility] for increased lethargy and productive cough.
Blood pressure fluctuating between 150s to 80s systolic. Patient tachycardic. Patient hypoxemic requiring 3 L of oxygen.
Patient with extensive bilateral wheezing on examination.
VBG shows pH of 7.3.
Patient positive for influenza A also with possible acute COPD exacerbation
Chest x-ray without any consolidation suggestive of pneumonia. EKG shows atrial fibrillation with heart rate elevated up to 120.
Patient with influenza A infection with hypotension.
Blood cultures pending. Start Tamiflu. IV fluids. DuoNebs every 6 hours, dexamethasone.
[2024-12-17] MEDS: DUONEB INH (19:31)
[2024-12-17] MEDS: NSS 1000 IV (20:34)
[2024-12-17] MEDS: LIPITOR PO (20:51)
[2024-12-17] MEDS: MUCINEX PO (20:51)
[2024-12-17] MEDS: PLETAL PO (20:51)
[2024-12-17] MEDS: PROTONIX PO (20:52)
[2024-12-17] MEDS: DECADRON 4 MG IV (22:35)
--- NOTE | 2024-12-18 02:18 | PTCARENOTE ---
Received PT at start of shift. PT already in bed. PT refusing care, and unable to answer admission questions. refused PO medicine. PT on 5L of O2. Tele box on per orders. Bed alarm placed. Call abarca within reach. Will continue to monitor.
[2024-12-18 03:00] VITALS: BP 129/50
[2024-12-18] MEDS: DUONEB 3 ML INH ×3 (07:08→15:04)
--- NOTE | 2024-12-18 07:14 | RESPNOTE ---
Respiratory: patient thrashing in bed and ripped nebulizer mask of face. I calmed patient down took off mask.
[2024-12-18 07:55] VITALS: BP 102/52
[2024-12-18] MEDS: DECADRON 4 MG IV ×2 (10:06→22:49)
[2024-12-18] MEDS: NSS 1000 IV (10:08)
[2024-12-18] MEDS: PROTONIX PO (10:09)
[2024-12-18] MEDS: ASPIR LOW (ENTERIC COATED) PO (10:09)
[2024-12-18] MEDS: VITAMIN B-12 PO (10:09)
[2024-12-18] MEDS: PLETAL PO (10:09)
[2024-12-18] MEDS: FEOSOL PO (10:09)
[2024-12-18] MEDS: MUCINEX PO (10:09)
[2024-12-18 11:05] LABS: % Basophils 0.2 % (0-2); % Immature Granulocytes 0.5 % (0-0.5); % Lymphocytes 12.4 % (20.5-51.1); % Monocytes 8.5 % (1.7-9.3); % Neutrophils 78.4 % (42.2-75.2); Absolute Lymphocytes 0.5 10^3/uL (1.2-3.4); Absolute Monocytes 0.4 10^3/uL (0.1-0.6); Absolute Neutrophils 3.4 10^3/uL (1.4-6.5); Hemoglobin 9.6 g/dL (13.0-18.0); Mean Corpuscular Hgb 26.6 pg (27.0-31.0); Mean Corpuscular Volume 85.9 fL (80.0-94.0); Mean Platelet Volume 9.3 fL (7.4-10.4); Nucleated Red Blood Cells % 0 % (-); Platelet Count 194 10^3/uL (130-400); Red Blood Cell Count 3.61 10^6/uL (4.70-6.10); Red Cell Dist. Width 17.7 % (11.5-14.5); White Blood Cell Count 4.4 10^3/uL (4.8-10.8)
[2024-12-18 11:13] VITALS: BP 102/43
[2024-12-18 11:41] LABS: Blood Urea Nitrogen 24 mg/dl (9-20); Calcium 8.3 mg/dl (8.4-10.2); Carbon Dioxide 23 mmol/L (22-30); Chloride 110 mmol/L (98-107); Estimated Creatinine Clearance 42 ml/min; Glucose 132 mg/dl (70-99); Potassium 4.3 mmol/L (3.5-5.1); Sodium 139 mmol/L (135-145); eGFR > 60.00
--- NOTE | 2024-12-18 13:37 | W.PN.HOSP.TC ---
Addendum entered and electronically signed by Cate Simental MD 12/18/24 16:30:
I saw and evaluated the patient. I reviewed the resident�s note and agree with findings and plan as documented in the resident�s note.
A/P:
# Acute hypoxic respiratory insufficiency due to influenza A infection
# Possible COPD exacerbation
influenza A positive on 12/17/2024
Cont Tamiflu at regular dose 75 mg twice daily for 5 days if patient willing to take (he often refuses due to underlying severe dementia)
Placed on 5L NC, wean O2 as tolerated
Started on dexamethasone, cont for now
Cont Duonebs
# Permanent Atrial Fibrillation:
Not on Eliquis as per previous notes
Home dose metoprolol held with borderline BP
# Hypercholesterolemia
continue atorvastatin
# GERD
Continue on pantoprazole 40 mg IV bid
DVT ppx- Lovenox SQ
DNR
Original Note:
Today's Communication/Plan
-
- gradually wean patient off of o2
- trend HB
- monitor patients rspiratory status
Assessment / Plan
Assessment / Plan
Acute hypoxic respiratory insufficiency due to influenza A infection
COPD exacerbation:
- Tested postive for influenza A after bilateral wheezing on yesterdays exam and unstable vitals
- Increased dosage of Tamiflu from 30 to 75 mg twice day for 5 days
- 94% o2 sat on 5 l NC, continue
- Started on dexamethasone and Duonebs every 6 hours
- Blood cultures negative
Permanent Atrial Fibrillation:
- upgraded on telemetry
- not on eliqius as per previous notes
- Home dose metorpolol held
- Rate controlled and stable
Unspecified anemia:
- hgb is 9.6, yesterday 12.3
- Iron studies on last admission 11/29 were 28, TIBC normal, ferritin normal, B12 normal
- Continue patient on FIRST HELPER ferrous sulfate
- Trend hemoglobin level
Hypercholesterolemia:
- continue atorvastatin
GERD:
- Continue on pantoprazole 40 mg IV bid
DVT ppx- lovenox 30 mg
DNR
Anticipated Discharge: 24 - 48 hours
Subjective/Interval History
-
Date of Service: December 18, 2024
Patient has severe dementia and is not able to provide HPI.
Objective Data
-
Labs:
Laboratory Results
12/18/24
10:43
WBC 4.4 L
Hgb 9.6 L D
Hct 31.0 L
Plt Count 194
Sodium 139
Potassium 4.3
Chloride 110 H
Carbon Dioxide 23
BUN 24 H
Creatinine 0.9
Glucose 132 H
Calcium 8.3 L
Vital Signs:
Vital Signs
Temp Pulse Resp BP Pulse Ox
97.3 F 72 16 102/43 94
12/18/24 11:13 12/18/24 11:21 12/18/24 11:21 12/18/24 11:13 12/18/24 11:13
Review of Systems
-
Unable to obtain full review of systems at this time due to: Dementia
Physical Exam
-
Respiratory: Decreased Breath Sounds (Bilaterally)
Cardiac: Regular Rhythm and S1/S2
GI: Soft and Nondistended
Musculoskeletal: No Clubbing, No Cyanosis and No Edema
Skin: Warm and Dry
Neuro: Awake and Alert
Psych: Calm
Data Reviewed
-
Labs: Labs Reviewed by me and Discussed with Physician
--- NOTE | 2024-12-18 13:49 | VATNOTE ---
Called to place new IV. Patient became agitated, threatening this RN and waving his fist in the air. No IV placed at this time. KASSANDRA Anna made aware.
--- NOTE | 2024-12-18 14:12 | CM ---
Patient came from [facility]
Dx: INFLUENZA, hypoxic respiratory failure
PMH: dementia, hypertension, hypercholesterolemia, proximal atrial fibrillation, CAD, carotid artery stenosis, peripheral vascular disease, kidney Ca R nephrectomy, CVA
Referral added in [facility] notified Eleni
states transitioning LTC
IA completed-obtained from daughter Dannielle
prior before Eve Mcclendon resided with his in a 1st floor apartment
per daughter is a 'hoarder'
PLOF: Independent, walker
DME: dariela Alvarez
PT to eval - patient refused
PCP: Martin Montiel
Pharmacy: [facility]
PLAN: Return to [facility] when stable, CM to continue to follow
Report# [phone]
[2024-12-18 15:12] VITALS: BP 111/52
--- NOTE | 2024-12-18 17:05 | PTCARENOTE ---
patient refusing all oral medications. able to have phlebotomy draw am labs after patient initially refused. hb 9.6. Mayela Moser resident made aware. refused breakfast and able to feed him some vanilla ice cream at lunch. becomes agitated with
care and turning. at 13:50 called IV team as IV site leaking. patient became agitated and threatened IV nurse Rambo Veras waving his fist in the air. spoke with resident Mayela Moser and she will order Ativan. will continue to monitor.
[2024-12-18] MEDS: LOVENOX SC (18:08)
[2024-12-18] MEDS: LIPITOR PO (18:08)
[2024-12-18] MEDS: ATIVAN 0.25 MG PO (18:27)
--- NOTE | 2024-12-18 19:12 | VATNOTE ---
pt refusing IV start as requested by staff for tele and IVFL. wishes honored.
--- NOTE | 2024-12-18 19:22 | PTCARENOTE ---
patient was cooperative and took PO Ativan in chocolate ice cream. refusing IV to be placed by IV team nurse. next shift RN Kandis and Emile made aware, will continue to monitor.
[2024-12-18 19:40] VITALS: BP 112/52
[2024-12-18] MEDS: TAMIFLU 75 MG PO (20:51)
[2024-12-18] MEDS: PLETAL 100 MG PO (20:52)
[2024-12-18] MEDS: MUCINEX 600 MG PO (20:52)
[2024-12-18] MEDS: PROTONIX 40 MG PO (20:53)
[2024-12-18] MEDS: HALDOL 1 MG IM (21:32)
[2024-12-18 23:40] VITALS: BP 119/57
--- NOTE | 2024-12-19 03:55 | PTCARENOTE ---
Pt pulled out IV on previous shift and refused new IV placement. Took PO meds this shift. Pt continued to refuse new IV placement, JASPREET Albarran notified. New order received for IM Haldol. See MAR for administration details. Then new IV was able
to be placed. IV fluids running per orders. IV decadron administered per orders. Bed alarm maintained. Will continue to monitor.
[2024-12-19 03:58] VITALS: BP 137/66
[2024-12-19] MEDS: NSS 1000 IV ×2 (05:06→12:02)
[2024-12-19 07:45] LABS: % Immature Granulocytes 0.3 % (0-0.5); % Lymphocytes 5.7 % (20.5-51.1); Absolute Lymphocytes 0.4 10^3/uL (1.2-3.4); Absolute Monocytes 0.3 10^3/uL (0.1-0.6); Absolute Neutrophils 6.5 10^3/uL (1.4-6.5); Hematocrit 30.3 % (39.0-52.0); Hemoglobin 9.6 g/dL (13.0-18.0); Mean Corp Hgb Conc. 31.7 g/dL (33.0-37.0); Mean Corpuscular Hgb 26.9 pg (27.0-31.0); Mean Corpuscular Volume 84.9 fL (80.0-94.0); Mean Platelet Volume 9.5 fL (7.4-10.4); Nucleated Red Blood Cells % 0 % (-); Platelet Count 188 10^3/uL (130-400); Red Blood Cell Count 3.57 10^6/uL (4.70-6.10); Red Cell Dist. Width 17.7 % (11.5-14.5); White Blood Cell Count 7.2 10^3/uL (4.8-10.8)
[2024-12-19 08:23] LABS: Blood Urea Nitrogen 23 mg/dl (9-20); Calcium 8.3 mg/dl (8.4-10.2); Carbon Dioxide 22 mmol/L (22-30); Chloride 111 mmol/L (98-107); Estimated Creatinine Clearance 42 ml/min; Glucose 116 mg/dl (70-99); Potassium 4.2 mmol/L (3.5-5.1); Sodium 139 mmol/L (135-145); eGFR > 60.00
[2024-12-19] MEDS: ASPIR LOW (ENTERIC COATED) 81 MG PO (09:23)
[2024-12-19] MEDS: VITAMIN B-12 1000 MCG PO (09:23)
[2024-12-19] MEDS: PLETAL 100 MG PO ×2 (09:23→20:08)
[2024-12-19] MEDS: PROTONIX 40 MG PO ×2 (09:23→20:08)
[2024-12-19] MEDS: MUCINEX 600 MG PO ×2 (09:23→20:08)
[2024-12-19] MEDS: FEOSOL 325 MG PO (09:23)
[2024-12-19] MEDS: TAMIFLU 75 MG PO ×2 (09:25→20:09)
[2024-12-19] MEDS: DECADRON 4 MG IV (09:25)
[2024-12-19 10:33] VITALS: BP 143/74
--- NOTE | 2024-12-19 10:42 | CS.PSYCHR ---
Consult Summary - Psychiatry
-
Pt is an 84 yo male with past medical history significant for dementia, hypertension, hypercholesterolemia, proximal atrial fibrillation, CAD, carotid artery stenosis, peripheral vascular disease, kidney Ca s/p R nephrectomy and Hx CVA presented to
ED from [facility] for evaluation of increased lethargy. Patient is poor historian with severe dementia, was not able to offer any information. Patient noted to be lethargic on admission. Overnight, pt pulled out his IV and refused to
allow replacement. Pt was given IM Haldol and IV was able to be placed. This morning, pt seen lying in bed, calm, mildly sedated, giving brief answers, offering no complaints. QTc 454 on 12/17.
Psych hx: none known other than dementia
SH: non-contributory
MSE: awake this morning, making eye contact, giving brief soft-spoken answers, clam, lying in bed. No agitation, no signs of distress
Imp: Dementia with possible superimposed delirium, episode of agitation last evening
Rec: Will try Risperidone in PM, noted to be effective on previous admissions
Will follow
--- NOTE | 2024-12-19 11:39 | W.PN.HOSP.TC ---
Today's Communication/Plan
-
see A/P
Assessment / Plan
Assessment / Plan
A/P:
# Acute hypoxic respiratory insufficiency due to influenza A infection
# Possible COPD exacerbation
influenza A positive on 12/17/2024
Cont Tamiflu at regular dose 75 mg twice daily for 5 days if patient willing to take (he often refuses due to underlying severe dementia)
Weaned from 5L to 3L NC, cont to wean O2 as tolerated
Stop further dexamethasone, which should help improve his behavior/agitation
Cont Duonebs
Noted Psych started pt on Zyprexa for better mood control, cont low dose
# Permanent Atrial Fibrillation:
Not on Eliquis as per previous notes
Resume Toprol at 25 mg BID (DESK MANAGER 50 mg BID) with improved BP
# Hypercholesterolemia
continue atorvastatin
# GERD
Continue on pantoprazole 40 mg IV bid
DVT ppx- Lovenox SQ
DNR
DW RN extensively
total time spent 51 min
Anticipated Discharge: 24 - 48 hours
Subjective/Interval History
-
Date of Service: December 19, 2024
Objective Data
-
Labs:
Laboratory Results
12/19/24
07:16
WBC 7.2
Hgb 9.6 L
Hct 30.3 L
Plt Count 188
Sodium 139
Potassium 4.2
Chloride 111 H
Carbon Dioxide 22
BUN 23 H
Creatinine 0.9
Glucose 116 H
Calcium 8.3 L
Vital Signs:
Vital Signs
Temp Pulse Resp BP Pulse Ox
36.3 C 89 18 143/74 96
12/18/24 23:40 12/19/24 10:33 12/19/24 10:33 12/19/24 10:33 12/19/24 10:33
I&O
12/18/24 12/19/24 12/20/24
06:59 06:59 06:59
Intake Total 120 / 120
Balance 120 / 120
Review of Systems
-
Unable to obtain full review of systems at this time due to: Dementia
Physical Exam
-
General: Well Developed, Well Nourished, Comfortable and Respiratory Distress (mild)
HEENT: Oxygen (4L NC)
Respiratory: Non Labored Respirations; Negative Accessory Resp Muscle Use
Cardiac: S1/S2 and Irregular Rhythm
GI: Soft, Nontender and Nondistended
Musculoskeletal: No Clubbing, No Cyanosis and No Edema
Skin: Warm and Dry
Neuro: Awake
Psych: Calm and Apparent Dementia
Data Reviewed
-
Labs: Labs Reviewed by me
[2024-12-19] MEDS: TOPROL XL 25 MG PO ×2 (12:01→20:09)
--- NOTE | 2024-12-19 13:26 | PTCARENOTE ---
loan came to me and stated pt had labored breathing and fast RR. when i came to room, pt had audible rhonchi with fq cough rr 20, respiratory called for treatment, by time they came, he refused and his breathing not labored
--- NOTE | 2024-12-19 13:30 | PTCARENOTE ---
asked me to take pt off IVF and off oxygen. I did take off oxygen. 15 minutes later pt hands and nose were cyanotic with pulse ox of 67%. oxygen reapplied
[2024-12-19 15:19] VITALS: BP 129/72
--- NOTE | 2024-12-19 15:50 | PTCARENOTE ---
PT made multiple attempts to get oob each hour, He has bed alarm on, fall yellow sign on door. by time we get to room he is almost standing. He easily reoriented. Pt restless agitated and oriented x1-2. Tele during these events up to 140-150
afib. Pt with moist fq productive cough with course rhonchi throughout. Pt was on 5 L oxygen and was being weaned. each attempt also associate diwth brown stool moderate amounts. notified, stool samples ordered, placed on enhanced
precautions and placed on 1:1 and orders for 4 side rails.
[2024-12-19] MEDS: LOVENOX 40 MG SC (17:33)
[2024-12-19] MEDS: LIPITOR 10 MG PO (17:33)
[2024-12-19] MEDS: RISPERDAL M-TAB (ORALLY DISINTEGRATING) 0.25 MG PO (17:34)
[2024-12-19 19:31] VITALS: BP 165/72
[2024-12-19 23:27] VITALS: BP 155/65
[2024-12-20 07:25] VITALS: BP 143/76
[2024-12-20] MEDS: TAMIFLU 75 MG PO ×2 (09:09→21:43)
[2024-12-20] MEDS: PROTONIX 40 MG PO ×2 (09:09→21:44)
[2024-12-20] MEDS: PLETAL 100 MG PO ×2 (09:09→21:44)
[2024-12-20] MEDS: FEOSOL 325 MG PO (09:09)
[2024-12-20] MEDS: MUCINEX 600 MG PO ×2 (09:10→21:42)
[2024-12-20] MEDS: VITAMIN B-12 1000 MCG PO (09:10)
[2024-12-20] MEDS: TOPROL XL 25 MG PO ×2 (09:10→21:43)
[2024-12-20] MEDS: ASPIR LOW (ENTERIC COATED) 81 MG PO (09:10)
--- NOTE | 2024-12-20 10:50 | W.PN.HOSP.TC ---
Today's Communication/Plan
-
see A/P
Assessment / Plan
Assessment / Plan
A/P:
# Acute hypoxic respiratory insufficiency due to influenza A infection
# Possible COPD exacerbation
influenza A positive on 12/17/2024
Cont Tamiflu at regular dose 75 mg twice daily for 5 days if patient willing to take (he often refuses due to underlying severe dementia)
Weaned from 5L to 1L NC, cont to wean O2 as tolerated. He is not on home O2
Stopped further dexamethasone, no significant wheezing anyway, and this has helped improve his behavior/agitation
Cont Duonebs
# Permanent Atrial Fibrillation:
Not on Eliquis as per previous notes
Resume Toprol at 25 mg BID (BARREL WASHER MACHINE 50 mg BID) with improved BP
# Hypercholesterolemia
continue atorvastatin
# GERD
Continue on pantoprazole 40 mg IV bid
# Severe dementia with behavioral disturbance
Cont restraint with 4 side bed rails
Cont one to one, which has significantly improved his mood and behavior
Noted Psych started pt on Zyprexa for better mood control, cont low dose
Avoid sedatives.
DVT ppx- Lovenox SQ
DNR
DW RN
updated daughter on the phone. Extensive discussion.
total time spent 51 min
Anticipated Discharge: 24 - 48 hours
Subjective/Interval History
-
Date of Service: December 20, 2024
Objective Data
-
Vital Signs:
Vital Signs
Temp Pulse Resp BP Pulse Ox
37.2 C 84 17 143/76 87
12/20/24 07:25 12/20/24 07:25 12/20/24 07:25 12/20/24 07:12/20/24 10:26
I&O
12/19/24 12/20/24 12/21/24
06:59 06:59 06:59
Intake Total 120 / 120 1390 / 1390
Output Total 450 / 450
Balance 120 / 120 940 / 940
Review of Systems
-
Unable to obtain full review of systems at this time due to: Dementia
Physical Exam
-
General: Well Developed, Well Nourished, Comfortable and Respiratory Distress (mild)
HEENT: Oxygen (1L NC)
Respiratory: Non Labored Respirations; Negative Accessory Resp Muscle Use
Cardiac: S1/S2 and Irregular Rhythm
GI: Soft, Nontender and Nondistended
Musculoskeletal: No Clubbing, No Cyanosis and No Edema
Skin: Warm and Dry
Neuro: Awake
Psych: Calm and Apparent Dementia
Data Reviewed
-
Labs: Labs Reviewed by me
[2024-12-20] MEDS: DUONEB 3 ML INH (14:30)
[2024-12-20 15:30] VITALS: BP 149/73
--- NOTE | 2024-12-20 16:09 | PTCARENOTE ---
Family at beside feeding patient handfulls of jelly beans as per 1:1 PCT. PCT asked family not to pressure patient to eat all the candy. 30 minutes later pt started to cough thick yellow sputum into trash can next to bed. Pt felt very
uncomfortable and unable to bring up sputum, + rhonchi with pulse ox of 91% on 1 liters but was very SOB, respiratory called and said his rhonchi increased and pulse ox 84% on `1 liter and oxygen increased back to 5 L. MD notified and speech
consult ordered. I did assess swallowing and pt did not appear to aspiration. Pt remained on diet for now as per MD no changes
[2024-12-20] MEDS: LOVENOX 40 MG SC (18:10)
[2024-12-20] MEDS: RISPERDAL M-TAB (ORALLY DISINTEGRATING) 0.25 MG PO (18:10)
[2024-12-20] MEDS: LIPITOR 10 MG PO (18:11)
[2024-12-20 23:00] VITALS: BP 134/52
--- NOTE | 2024-12-21 03:39 | PTCARENOTE ---
pt coughed up moderate blood streaked mucous. VSS 98.5-89-20-147/71-95% on 4L. [employer] notified.
[2024-12-21 03:41] VITALS: BP 147/71
[2024-12-21 07:00] VITALS: BP 126/63
--- NOTE | 2024-12-21 09:16 | PTOTSP ---
Dysphagia Eval
Oral/pharyngeal dysphagia suspected likely acute on chronic (i.e., influenza A, COPD exacerbation; dementia, CVA, GERD). Cannot r/o silent aspiration bedside.
Recommend:
1. L4 puree, L0 thin liquids
2. Medications 1 at a time
3. Full supervision/assist
4. Upright to 90 degrees, small sips/bites, slow rate, reflux precautions
5. Oral care 3x daily
6. Video swallow if concerned for aspiration/silent aspiration (if aligned w/ GOC)
[2024-12-21] MEDS: PROTONIX 40 MG PO ×2 (09:41→21:51)
[2024-12-21] MEDS: VITAMIN B-12 1000 MCG PO (09:41)
[2024-12-21] MEDS: TOPROL XL 25 MG PO ×2 (09:41→21:51)
[2024-12-21] MEDS: MUCINEX 600 MG PO ×2 (09:41→21:50)
[2024-12-21] MEDS: FEOSOL 325 MG PO (09:41)
[2024-12-21] MEDS: ASPIR LOW (ENTERIC COATED) 81 MG PO (09:41)
[2024-12-21] MEDS: PLETAL 100 MG PO ×2 (09:41→21:51)
[2024-12-21] MEDS: TAMIFLU 75 MG PO ×2 (09:48→21:51)
[2024-12-21 10:55] LABS: Hematocrit 30.2 % (39.0-52.0); Hemoglobin 9.6 g/dL (13.0-18.0); Mean Corp Hgb Conc. 31.8 g/dL (33.0-37.0); Mean Corpuscular Volume 85.1 fL (80.0-94.0); Mean Platelet Volume 9.4 fL (7.4-10.4); Platelet Count 160 10^3/uL (130-400); Red Blood Cell Count 3.55 10^6/uL (4.70-6.10); Red Cell Dist. Width 17.5 % (11.5-14.5); White Blood Cell Count 4.8 10^3/uL (4.8-10.8)
[2024-12-21 11:52] LABS: Blood Urea Nitrogen 15 mg/dl (9-20); Calcium 8.6 mg/dl (8.4-10.2); Carbon Dioxide 26 mmol/L (22-30); Chloride 110 mmol/L (98-107); Estimated Creatinine Clearance 42 ml/min; Glucose 102 mg/dl (70-99); Potassium 3.4 mmol/L (3.5-5.1); Sodium 141 mmol/L (135-145); eGFR > 60.00
--- NOTE | 2024-12-21 12:50 | PTOTSP ---
Speech Language Pathology
VIDEOFLUOROSCOPIC SWALLOWING EXAMINATION (VSE) completed. Pt with mild oropharyngeal dysphagia. No penetration/aspiration noted with trace pharyngeal residue.
Recommend:
(1) IDDSI Level 4 (Puree) and thin liquids as pt does not have dentures in hospital and is unable to chew without them
(2) General aspiration precautions
(3) Meds as tolerated
(4) EARLY BREASTFEEDING CARE SPECIALIST to sign off as pt is at least restrictive diet in this level of care (as dentures not present).
[2024-12-21] MEDS: TYLENOL 650 MG PO (14:26)
--- NOTE | 2024-12-21 14:33 | W.PN.HOSP.TC ---
Addendum entered and electronically signed by Akiko Grimes MD 12/21/24 16:19:
I saw and evaluated the patient independently. I reviewed the resident�s note and agree with findings and plan as documented by Dr. Pedro.
GENERAL: cachectic, frail, elderly male in no apparent distress
HEENT: NC/AT--O2 NC in place
HEART: regular rate and rhythm, +S1, +S2
LUNGS : coarse breath sounds bilaterally
ABDOM: soft, nontender, nondistended, + bowel sounds
EXT: no cyanosis, clubbing, or edema
NEUROLOGIC: grossly intact
Acute hypoxic respiratory insufficiency due to influenza A infection with possible COPD exacerbation--Continue Tamiflu 75 mg twice day for remaining course, sometimes patient is refusing to take--wean O2 to off--cont duonebs--sputum culture--VSE
shows no aspiration--pureed diet with thin liquids
Severe Dementia with agitation--1:[address] Simental--may need psych eval--also in restraints (4 side bed rails)
Permanent Atrial Fibrillation--not on Eliquis as per previous notes--cont Toprol XL
Unspecified anemia--likely of chronic disease with history of iron deficiency anemia--hgb is 9.6--Iron studies on last admission 11/29/24 were 28, TIBC normal, ferritin normal, B12 normal--Continue patient on INSTRUCTIONAL FACILITATOR ferrous sulfate
Hypercholesterolemia--continue atorvastatin
GERD--Continue on pantoprazole 40 mg IV bid
DVT proph--lovenox 30 mg
code status --DNR
Original Note:
Today's Communication/Plan
-
- follow up on sputum culture
- wean off oxygen
- Monitor respiratory status
Assessment / Plan
Assessment / Plan
Acute hypoxic respiratory insufficiency due to influenza A infection
COPD exacerbation:
- Continue Tamiflu 75 mg twice day for remaining course, sometimes patient is refusing to take.
- 97% oxygen on 1 liter nasal cannula, continue to wean off oxygen, currently not on home oxygen
- DuoNeb every 6 hours
- Dexamethasone discontinued
- Sputum sent for sputum culture
Severe Dementia with agitation:
- on 1:1
- is on 4 sided bed rails restraint
- VSE showed no aspiration. Diet changed to thin liquids.
- Ordered Ativan once for agitation
Permanent Atrial Fibrillation:
- upgraded on telemetry
- not on Eliquis as per previous notes
- Continue on metoprolol succinate
- Rate controlled and stable
Unspecified anemia:
- hgb is 9.6
- Iron studies on last admission 11/29 were 28, TIBC normal, ferritin normal, B12 normal
- Continue patient on INSTRUCTIONAL FACILITATOR ferrous sulfate
- Trend hemoglobin level
Hypercholesterolemia:
- continue atorvastatin
GERD:
- Continue on pantoprazole 40 mg IV bid
DVT ppx- lovenox 30 mg
DNR
Anticipated Discharge: 24 - 48 hours
Subjective/Interval History
-
Date of Service: December 21, 2024
Patient has dementia, was not able to assess medical complaints today.
Objective Data
-
Labs:
Laboratory Results
12/21/24
10:43
WBC 4.8
Hgb 9.6 L
Hct 30.2 L
Plt Count 160
Sodium 141
Potassium 3.4 L
Chloride 110 H
Carbon Dioxide 26
BUN 15
Creatinine 0.9
Glucose 102 H
Calcium 8.6
Vital Signs:
Vital Signs
Temp Pulse Resp BP Pulse Ox
98.0 F 109 14 126/62 97
12/21/24 07:00 12/21/24 07:00 12/21/24 07:00 12/21/24 09:41 12/21/24 09:41
I&O
12/20/24 12/21/2412/22/25
06:59 06:59 06:59
Intake Total 1390 / 1390 120 / 120
Output Total 450 / 450 450 / 450
Balance 940 / 940 -330 / -330
Review of Systems
-
Unable to obtain full review of systems at this time due to: Dementia
Physical Exam
-
General: Well Developed, Well Nourished, Comfortable and Respiratory Distress (mild)
HEENT: Oxygen (1L NC)
Respiratory: Non Labored Respirations; Negative Accessory Resp Muscle Use
Cardiac: S1/S2 and Irregular Rhythm
GI: Soft, Nontender and Nondistended
Musculoskeletal: No Clubbing, No Cyanosis and No Edema
Skin: Warm and Dry
Neuro: Awake
Psych: Calm and Apparent Dementia
Data Reviewed
-
Labs: Labs Reviewed by me and Discussed with Physician
[2024-12-21] MEDS: ATIVAN 0.25 MG IV (15:01)
[2024-12-21] MEDS: NSS (PRESERVATIVE FREE) 0.125 ML IV (15:01)
--- NOTE | 2024-12-21 15:41 | CM ---
Patient seen at bedside with physicians. Patient on 1:1 as of 12/20. Patient for video swallow and plan is for him to return to [facility]. CM will continue to follow for discharge planning needs.
Plan; return to SNF; need updated clinical notes to go to SNF.
[2024-12-21] MEDS: DUONEB 3 ML INH ×2 (15:43→22:42)
[2024-12-21 15:49] VITALS: BP 130/60
[2024-12-21] MEDS: RISPERDAL M-TAB (ORALLY DISINTEGRATING) PO (17:56)
[2024-12-21] MEDS: LOVENOX 40 MG SC (17:56)
[2024-12-21] MEDS: LIPITOR PO (17:56)
--- NOTE | 2024-12-21 19:45 | PTCARENOTE ---
at 1442, patient flailing and bashing arms and legs on side rails and attempting to kick and punch nursing staff, as well as transfer oob. Multiple attempts were made by staff to reorient the patient and redirect his behavior; however, it was
unsuccessful. During patient thrashing his arms and legs at side rails, he sustained left forearm skin tear.prior to this episode, patient was c/o right side back pain and given PRN Tylenol (See MAR. At 1448, notified Ehsan Pedro and requested
order for Ativan. At 1548, lungs with coarse rhonchi b/l (audible) at some use of accessory muscles and labored breathing. I was able to suction for mod amount of mod mucous oral/pharyngeal. respiratory beeped and gave PRN neb treatment. since
suctioning, neb and PRN Ativan, has appeared more comfortable with less use of accessory muscles and labored breathing.
[2024-12-21 22:14] VITALS: BP 131/75
--- NOTE | 2024-12-22 00:52 | W.PN.UPDATE ---
Update Note
Progress Note Update
0100 Per RN Esmer unable to make into hospital due to darkness. Spoke with Esmer on phone and she would like pt to be made comfort care at this time. If pt survives night can consult hospice in am. Will dc uneccesary meds already ordered and
place comfort care orders.
2300 RN reports pt family would like to speak to provider about transitioning to comfort care.
Throughout the evening pt has declined drastically. Pt lethargic, restless with constant attempts to climb OOB. PT tachypneic, HR 150s. Lung with audible rhonchi. Pt appears to be struggling with his breathing. Spoke to son Emile at bedside. explained
comfort care and what it entails. Family having hard time seeing pt struggling to breathe and would want him to be comfortable. Spoke with Esmer on phone who is POA. She will be coming into hospital to discuss comfort care.
[2024-12-22] MEDS: MORPHINE SULFATE 2 MG IV ×2 (01:10→11:31)
[2024-12-22 08:16] LABS: % Basophils 0.1 % (0-2); % Immature Granulocytes 0.5 % (0-0.5); % Lymphocytes 7.8 % (20.5-51.1); % Monocytes 5.8 % (1.7-9.3); % Neutrophils 85.8 % (42.2-75.2); Absolute Lymphocytes 0.7 10^3/uL (1.2-3.4); Absolute Monocytes 0.5 10^3/uL (0.1-0.6); Absolute Neutrophils 7.4 10^3/uL (1.4-6.5); Hemoglobin 11.3 g/dL (13.0-18.0); Mean Corp Hgb Conc. 31.4 g/dL (33.0-37.0); Mean Corpuscular Hgb 26.5 pg (27.0-31.0); Mean Corpuscular Volume 84.5 fL (80.0-94.0); Mean Platelet Volume 9.5 fL (7.4-10.4); Nucleated Red Blood Cells % 0 % (-); Platelet Count 158 10^3/uL (130-400); Red Blood Cell Count 4.26 10^6/uL (4.70-6.10); Red Cell Dist. Width 17.7 % (11.5-14.5); White Blood Cell Count 8.6 10^3/uL (4.8-10.8)
[2024-12-22 08:39] VITALS: BP 155/63
[2024-12-22 08:43] LABS: Blood Urea Nitrogen 18 mg/dl (9-20); Calcium 8.7 mg/dl (8.4-10.2); Carbon Dioxide 22 mmol/L (22-30); Chloride 113 mmol/L (98-107); Estimated Creatinine Clearance 42 ml/min; Glucose 92 mg/dl (70-99); Potassium 3.7 mmol/L (3.5-5.1); Sodium 144 mmol/L (135-145); eGFR > 60.00
[2024-12-22] MEDS: MUCINEX PO (09:22)
[2024-12-22] MEDS: TAMIFLU PO (09:22)
[2024-12-22] MEDS: PROTONIX PO (09:22)
[2024-12-22] MEDS: TOPROL XL PO (09:22)
--- NOTE | 2024-12-22 09:34 | HOSPNOTE ---
Addendum entered by Renée Renee RN 12/22/24 11:43:
The patient is extemely agitated requiring IV medications and the daughter will be coming in to sign consents and we will admit inpatient hospice. Admissions was called and Attending in agreement with plan.
Addendum entered by Renée Renee RN 12/22/24 11:10:
Per Attending patient will remain on comfort care for today. We will continue to follow.
Original Note:
Referral received and will discuss with attending.
--- NOTE | 2024-12-22 10:30 | FALL ---
Description of Fall:
this nurse was called to room by manager case management who found pt on the floor. pt assisted back into bed by nurses.
Injuries Noted: no injuries noted
Action Taken: doctor in room and aware of fall. no tests ordered.
Name of Provider Notified: dr. andino
--- NOTE | 2024-12-22 10:34 | W.PN.UPDATE ---
Update Note
Progress Note Update
Patient seen briefly at bedside, chart reviewed, discussed with staff. Mr. Valencia has been transitioned to comfort care. Risperdal remains available. No agitation reported. he is resting comfortably.
Impression/recommendation: Dementia with possible superimposed delirium - Continue Risperidone in PM. Psych to sign off, call or reconsult with any new or immediate concerns.
[2024-12-22] MEDS: ATIVAN 0.5 MG IV (11:39)
[2024-12-22] MEDS: NSS (PRESERVATIVE FREE) 0.25 ML IV (11:40)
--- NOTE | 2024-12-22 12:57 | PN.CDI ---
CDI
- -
CDI:
Physician Documentation Request
Admit Date: 12/17/24 15:50
Dear Doctor Mayela,
Patient admitted with influenza A infection.
12/20 PN, 'Acute hypoxic respiratory insufficiency...'
Oxygen use documented below:
Selected Entries
12/17/24
18:47 12/18/24
03:00 12/19/24
03:58
Nasal Cannula flow liters per minute 5 5 5
12/20/24
07:25
Nasal Cannula flow liters per minute 5
Please provide in your note the diagnosis associate with the above oxygen use:
Acute hypoxic respiratory failure
Hypoxia only
Other
Use of terms such as suspected, likely, concern for, or probable (associated with a specific diagnosis that is being evaluated, monitored, or treated as if it exists) are acceptable and can be coded in the inpatient setting, when documented at the
time of discharge.
Thank you,
Veronika COLE,RN,CCDS
CDI Specialist
Available via [place] text
Please use your independent medical judgment in providing your response.
--- NOTE | 2024-12-22 14:26 | PN.CDI ---
CDI
- -
CDI:
Physician Documentation Request
Admit Date: 12/17/24 15:50
Dear Doctor Mayela,
Patient admitted with influenza A infection.
On admission, HR > 90 and RR > 20.
Please clarify which of the following most accurately describes the status of the patient's infection:
Viral sepsis, POA
Influenza A infection only
Other
Sepsis
- Systemic manifestations of infection, with 2 or more SIRS criteria which include:
- Fever >100.4 degrees F or hypothermia < 96.8 degrees F
- Leukocytosis - WBC > 12,000 or leukopenia - WBC < 4,000 or > 10% bands
- Tachycardia > 90 beats per minute
- Tachypnea - RR > 20 breaths per minute or PaCO2 , 32mmHg
Source: Merck Manual 2013
- Indicate the known or suspected organism
- Indicate the known or suspected underlying infection, such as influenza a infection
Localized Infection Only, Without Systemic Illness
- indicate the site/source, such as influenza A infection
Other
Unable to Determine
Use of terms such as suspected, likely, concern for, or probable (associated with a specific diagnosis that is being evaluated, monitored, or treated as if it exists) are acceptable and can be coded in the inpatient setting, when documented at the
time of discharge.
Thank you,
Veronika COLE,RN,CCDS
CDI Specialist
Available via [place] text
Please use your independent medical judgment in providing your response.
--- NOTE | 2024-12-22 15:15 | CM ---
Patient seen at bedside with physicians and patient found on floor by physicians. CM notified nursing that patient was in need of assistance and on floor. Patient seen and assessed by hospice, Patient transitioned to [facility] hospice. CM will continue to
follow for discharge planning needs.
Plan; transition to [facility] hospice.
== END 2024-12-22 14:05 | disposition hospice, inpatient (51) | DRG 871 ==
LOC: 3 WEST ACU 15:50
PROVIDERS: Internal Medicine; Nurse Practitioner Family; ADMITTING PHYSICIAN Hospitalist; ATTENDING PHYSICIAN Internal Medicine; EMERGENCY PHYSICIAN Emergency Medicine; FAMILY PHYSICIAN Family Medicine; OTHER PHYSICIAN Psychiatry & Neurology Psychiatry
DX: A41.89 Other specified sepsis (principal); J96.01 Acute respiratory failure with hypoxia; F03.C11 Unspecified dementia, severe, with agitation; F03.C18 Unspecified dementia, severe, with other behavioral disturbance; F05 Delirium due to known physiological condition; R64 Cachexia; I48.21 Permanent atrial fibrillation; J10.1 Influenza due to other identified influenza virus with other respiratory manifestations; E78.00 Pure hypercholesterolemia, unspecified; I10 Essential (primary) hypertension; Z51.5 Encounter for palliative care; I25.10 Atherosclerotic heart disease of native coronary artery without angina pectoris; J43.9 Emphysema, unspecified; F17.200 Nicotine dependence, unspecified, uncomplicated; K21.9 Gastro-esophageal reflux disease without esophagitis; D63.8 Anemia in other chronic diseases classified elsewhere; I49.3 Ventricular premature depolarization; I73.9 Peripheral vascular disease, unspecified; Z60.2 Problems related to living alone; Z66 Do not resuscitate; Z90.5 Acquired absence of kidney; Z95.5 Presence of coronary angioplasty implant and graft; Z68.20 Body mass index [BMI] 20.0-20.9, adult; Z85.528 Personal history of other malignant neoplasm of kidney; Z11.52 Encounter for screening for COVID-19; Z86.73 Personal history of transient ischemic attack (TIA), and cerebral infarction without residual deficits; Z79.82 Long term (current) use of aspirin; Z78.1 Physical restraint status
CPT/HCPCS: 71045; 74230; 80048; 80053; 82805; 83605; 85025; 85027; 87040; 87070; 87324; 87449; 87502; 87798; 87811; 92610; 92611; 93005; 94640; 96374; 97163; 99291

== ENCOUNTER 2024-12-22 14:18 | Inpatient (IN) | payer OTHER, SELFPAY ==
--- NOTE | 2024-12-22 11:45 | HOSPNOTE ---
Patient will be admitted inpatient hospice. Daughter is coming in to sign consents and in agreement with hospice and the philosophy. Patient will be admitted for terminal agitation that could not be managed in an outside setting. Patient will be
seen daily by hospice.
--- NOTE | 2024-12-22 14:29 | W.DCSUMMARY ---
Addendum entered and electronically signed by Akiko Grimes MD 12/22/24 16:28:
Read, reviewed, and agree. See same day progress note for additional details. Time spent coordinating care, DC planning, review of DC plan of care with resident, transition of care, review of records in EMR, med rec, consults, notes, d/w
consultants, nursing, family, and CM = 45 mins
Original Note:
Discharge Summary
Discharge Data
Date of Admission: 12/22/24
Date of Discharge: 12/22/24
-
Pending Results: No
Hospital Course
Discharging Physician : Dr. Akiko Grimes and Dr. Ehsan Pedro
Disposition : Inpatient Hospice
Primary care physician : Unknown
Principal Discharge diagnosis : Acute hypoxemic respiratory insufficiency due to COPD exacerbations caused by Influenza A
Chronic Discharge diagnosis : Severe dementia with agitation, Permanent atrial fibrillation, unspecified anemia, hypercholesterolemia, GERD
Hospital Course : Patient is a 84-year-old male with past medical history significant for dementia, hypertension, hypercholesterolemia, proximal atrial fibrillation, CAD, carotid artery stenosis, peripheral vascular disease, kidney Ca s/p R
nephrectomy, CVA that presented to ED from [facility] for evaluation of increased lethargy. Patient is poor historian with severe dementia.
Patient met the criteria and was transferred to inpatient hospice care.
Problem #1: Acute hypoxemic respiratory insufficiency due to COPD exacerbations caused by Influenza A--- On 12/17/24 during stay, patient had unstable vitals, and required 3 L of oxygen. On physical examination, extensive bilateral wheezing, and
dyspnea. Suspected to be acute exacerbation of his COPD. Influenza antigen test positive. DuoNeb and Dexamethasone started, however Dexamethasone discontinued due to potentially exacerbating his agitation. Patient was started on Tamiflu 75 mg BID
for 5 days, however some days refused to take his medication. On 12/22/24 he is found to be struggling with his breathing, tachypneic, audible rhonchi on physical examination and spoke with Esmer on phone who is power of battery loader. She has
decided on him transitioning to hospice care. Patient was then started on morphine. Hospice nurse was consulted and concluded patient met criteria for inpatient hospice care and since patient is being discharged to hospice, his DuoNeb will be
continued.
Problem #2: Severe dementia with agitation and fall-- Patient is unable to provide a history due to dementia. He was briefly put on 1:1 and restraints which was later discontinued, to ensure both safety of patients and staff as the patient was at
times agitated and aggressive. Psychiatry was consulted and recommended continuing risperidone in PM with comfort care. On 12/22/24 patient was found at bedside floor after trying to move out of bed. No injuries or trauma to head.
Problem #3: permanent atrial fibrillation--- This patient has permanent atrial fibrillation for which he is not on any anticoagulation as per previous records. He was in Afib during admission as seen on his EKG. During his hospital stay, he was on
Torpol XL and rate was well controlled. Discontinue Toprol XL as patient is going to inpatient hospice care.
Problem #4: Unspecified anemia---on admission his hemoglobin is 12.3 and 11.3 on discharge. Iron studies on last admission 11/29 were iron 28, TIBC normal, ferritin normal, and b12 normal. This is most likely an anemia of chronic disease with a
history of iron deficiency anemia for which he was taking ferrous sulfate. Discontinue he ferrous sulfate on discharge as patient is going to inpatient hospice care.
Problem #5: Hypercholesterolemia---discontinue the atorvastatin the patient is taking during stay as he is being transitioned to hospice.
Problem #6: GERD--- discontinue on pantoprazole 40 mg IV BID on discharge as he is being transitioned to hospice care.
All medications except those appropriate were hospice were discontinued.
Important imaging findings :
Chest Xray- 12/17/24:
IMPRESSION:
There has been no significant change from prior study. There is a mass in the left upper lobe worrisome for malignancy. There are changes consistent with emphysema, noted on CT
EKG 12/17/24:
ATRIAL FIBRILLATION WITH RAPID VENTRICULAR RESPONSE WITH PREMATURE VENTRICULAR
OR ABERRANTLY CONDUCTED COMPLEXES
NONSPECIFIC ST AND T WAVE ABNORMALITY
ABNORMAL ECG
Procedure findings :
Discharge Plan
-
Referrals:
UNKNOWN - PT NOT,INTERVIEWE [Family Provider] -
Prescriptions:
No Action
aspirin 81 MG tablet,delayed release (DR/EC)
81 mg PO DAILY
simvastatin 20 MG tablet
20 mg PO HS
cilostazol 100 MG tablet
100 mg PO BID
metoprolol succinate [Toprol XL] 50 mg Tablet Extended Release 24 Hr
50 mg PO BID
polyethylene glycol 3350 17 gram Powder In Packet
17 g PO DAILY Qty: 30 0RF
acetaminophen [Tylenol] 325 mg Tablet
650 mg PO Q6HPRN PRN (Reason: mild pain)
magnesium hydroxide [Milk of Magnesia] 400 mg/5 mL Suspension
2,400 mg PO DAILYPRN PRN (Reason: if no bm by 3rd day)
bisacodyl [Dulcolax (bisacodyl)] 10 mg Suppository
10 mg [place] DAILYPRN PRN (Reason: if no bm aftr mom)
cyanocobalamin (vitamin B-12) [Vitamin B-12] 1,000 mcg Tablet
1,000 mcg PO DAILY 30 Days Qty: 30 0RF
pantoprazole 40 mg Tablet,Delayed Release (Dr/Ec)
40 mg PO BID 30 Days Qty: 60 0RF
ferrous sulfate 325 mg (65 mg iron) tablet
325 mg PO DAILY Qty: 30 0RF
Discharge Date and Time
Print Language: NIGERIEN
--- NOTE | 2024-12-22 15:22 | CM ---
Patient seen at bedside with physicians. Patient family to sign him onto [facility] with [facility]. CM will continue to follow for discharge planning needs.
Plan; hospice; [facility]
--- NOTE | 2024-12-22 15:49 | HPS.HSE ---
Addendum entered and electronically signed by Akiko Grimes MD 12/22/24 16:24:
I personally performed a history and physical exam of the patient and discussed management with the resident. I reviewed the resident's note and agree with the documented findings and plan of care HPI/CC.
GENERAL: cachectic, frail, elderly male appears SOB and restless
HEENT: NC/AT
HEART: regular rate and rhythm, +S1, +S2
LUNGS : coarse breath sounds bilaterally
ABDOM: soft, nontender, nondistended, + bowel sounds
EXT: no cyanosis, clubbing, or edema
NEUROLOGIC: grossly intact
Acute hypoxic respiratory insufficiency due to influenza A infection with possible COPD exacerbation with terminal agitation--qualifies for [facility] hosp[facility]--ADMIT
Severe Dementia with agitation
Permanent Atrial Fibrillation
Unspecified anemia--likely of chronic disease with history of iron deficiency anemia
Hypercholesterolemia
GERD
DVT proph
code status --DNR
Original Note:
Family Physician
-
Family Physician: INTERVIEWE UNKNOWN - PT NOT
Chief Complaint
-
Lethargy
History of Present Illness
Patient is a 84-year-old male with past medical history significant for dementia, hypertension, hypercholesterolemia, proximal atrial fibrillation, CAD, carotid artery stenosis, peripheral vascular disease, kidney Ca s/p R nephrectomy, CVA that
presented to ED from [facility] for evaluation of increased lethargy. Patient is poor historian with severe dementia.
Patient met the criteria and was transferred to inpatient hospice care.
Medical History
Past Medical History
Past Medical History: Reports Arrhythmia, CAD, COPD, CVA, Dementia, HTN and Hypercholesterolemia
Past Surgical History: Reports Other (Right nephrectomy, cardiac catheterization with stent)
Social History
Unable to obtain full social history at this time due to: Dementia
Family History
Family History: Not pertinent
Allergies / Home Medications
Allergies reflects when Allergies were last updated in [email or web address].
Home Medications with original date entered in [email or web address]
Allergy/Medication List:
Allergies
Allergy/AdvReac Type Severity Reaction Status Date / Time
No Known Allergies Allergy Verified 12/17/24 12:36
Home Medications
aspirin 81 mg tablet,delayed release 81 mg PO DAILY Blood Clot Prevention/Tx 09/30/12
simvastatin 20 mg tablet 20 mg PO HS High Cholesterol 05/02/15
cilostazol 100 mg tablet 100 mg PO BID Blood Clot Prevention/Tx 08/12/19
metoprolol succinate 50 mg tablet,extended release 24 hr (Toprol XL) 50 mg PO BID Blood Pressure 10/02/24
polyethylene glycol 3350 17 gram oral powder packet 17 g PO DAILY #30 ea 10/09/24
acetaminophen 325 mg tablet (Tylenol) 650 mg PO Q6HPRN PRN mild pain 11/28/24
bisacodyl 10 mg rectal suppository (Dulcolax (bisacodyl)) 10 mg [place] DAILYPRN PRN if no bm aftr mom 11/28/24
magnesium hydroxide 400 mg/5 mL oral suspension (Milk of Magnesia) 2,400 mg PO DAILYPRN PRN if no bm by 3rd day 11/28/24
cyanocobalamin (vitamin B-12) 1,000 mcg tablet (Vitamin B-12) 1,000 mcg PO DAILY 30 days #30 tabs 12/07/24
ferrous sulfate 325 mg (65 mg iron) tablet 325 mg PO DAILY #30 tabs 12/07/24
pantoprazole 40 mg tablet,delayed release 40 mg PO BID 30 days #60 tabs 12/07/24
If medication reconciliation has not been performed, why?: Dementia
Review of Systems
-
Unable to obtain full review of systems at this time due to: Dementia
Physical Exam
Physical Exam
General: Appears Chronically Ill
HEENT: Hearing Impaired; No Good Dentition
Respiratory: Other (mild respiratory distress )
Cardiac: S1/S2 and Irregular Rhythm
GI: Soft, Non Tender and Non Distended
Skin: Warm and Dry
Neuro: Awake
Psych: Apparent Dementia
Data Reviewed
-
Lab Data: Labs Reviewed by me and Discussed with Physician
Impression/Plan
-
Patient is being transitioned to hospice care and only hospice appropriate meds are being continued.
Acute hypoxic respiratory insufficiency due to influenza A infection
COPD exacerbation:
- discontinue the tamiflu
- Patient is on room air saturating 96%
- continue DuoNeb every 6 hours for symptomatic relief
- Dexamethasone discontinued
Severe Dementia with agitation:
- patient transitioned to inpatient hospice care
- Continue Ativan
- ordered haldol
- Patient started on moprhine
Permanent Atrial Fibrillation:
- not on Eliquis as per previous notes
- discontinue on metoprolol succinate
- Rate controlled and stable
Unspecified anemia:
- hgb is 9.6
- Iron studies on last admission 11/29 were 28, TIBC normal, ferritin normal, B12 normal
- discontinue patient on HOUSING ASSISTANT PROPERTY MANAGER ferrous sulfate
Hypercholesterolemia:
- diccontinue atorvastatin
GERD:
- discontinue on pantoprazole 40 mg IV bid
discontinue lovenox 30 mg
--- NOTE | 2024-12-22 16:04 | W.PN.HOSP.TC ---
Addendum entered and electronically signed by Akiko Grimes MD 12/22/24 16:16:
I saw and evaluated the patient independently. I reviewed the resident�s note and agree with findings and plan as documented by Dr. Pedro.
GENERAL: cachectic, frail, elderly male in no apparent distress
HEENT: NC/AT--O2 NC in [address]
HEART: regular rate and rhythm, +S1, +S2
LUNGS : coarse breath sounds bilaterally
ABDOM: soft, nontender, nondistended, + bowel sounds
EXT: no cyanosis, clubbing, or edema
NEUROLOGIC: grossly intact
Events of overnight reviewed. Patient's became more lethargic, restless with constant attempts to climb out of bed. Heart rate elevated, respiratory rate elevated, lungs with audible rhonchi. Because of decline, house nurse practitioner was
called and spoke to the family. Family wanted to transition to comfort care.
Walked in room this morning and found patient on the floor beside bed. Suspect terminal agitation and patient is unaware of his surroundings. Was placed back in bed. Hospice was consulted. Patient meets inpatient hospice criteria and has been
transitioned to general inpatient hospice.
Acute hypoxic respiratory insufficiency due to influenza A infection with possible COPD exacerbation--Continue Tamiflu 75 mg twice day for remaining course, sometimes patient is refusing to take-- O2 to off--cont duonebs--sputum culture--VSE shows
no aspiration--pureed diet with thin liquids
Severe Dementia with agitation--1:[address] Simental--may need psych eval--also in restraints (4 side bed rails)
Permanent Atrial Fibrillation--not on Eliquis as per previous notes--cont Toprol XL
Unspecified anemia--likely of chronic disease with history of iron deficiency anemia--hgb is 9.6--Iron studies on last admission 11/29/24 were 28, TIBC normal, ferritin normal, B12 normal--Continue patient on SUPERVISOR CONTINUOUS WELD PIPE MILL ferrous sulfate
Hypercholesterolemia--continue atorvastatin
GERD--Continue on pantoprazole 40 mg IV bid
DVT proph--lovenox 30 mg
code status --DNR
Original Note:
Today's Communication/Plan
-
- patient is being transitioned to inaptient hospice care
Assessment / Plan
Assessment / Plan
Patient is being transitioned to hospice care and only hospice appropriate meds are being continued.
Acute hypoxic respiratory insufficiency due to influenza A infection
COPD exacerbation:
- discontinue the tamiflu
- Patient is on room air saturating 96%
- continue DuoNeb every 6 hours for symptomatic relief
- Dexamethasone discontinued
Severe Dementia with agitation:
- patient transitioned to inpatient hospice care
- Continue Ativan
- ordered haldol
- Patient started on moprhine
Permanent Atrial Fibrillation:
- not on Eliquis as per previous notes
- discontinue on metoprolol succinate
- Rate controlled and stable
Unspecified anemia:
- hgb is 9.6
- Iron studies on last admission 11/29 were 28, TIBC normal, ferritin normal, B12 normal
- discontinue patient on SUPERVISOR CONTINUOUS WELD PIPE MILL ferrous sulfate
Hypercholesterolemia:
- diccontinue atorvastatin
GERD:
- discontinue on pantoprazole 40 mg IV bid
discontinue lovenox 30 mg
Anticipated Discharge: 24 - 48 hours
Subjective/Interval History
-
Date of Service: December 22, 2024
Patient is being transitioned to hospice care after his agreed last night.
Review of Systems
-
Unable to obtain full review of systems at this time due to: Dementia
Physical Exam
-
General: Respiratory Distress (mild) and Appears Chronically Ill
Respiratory: Non Labored Respirations; Negative Accessory Resp Muscle Use
Cardiac: S1/S2 and Irregular Rhythm
GI: Soft, Nontender and Nondistended
Musculoskeletal: No Clubbing, No Cyanosis and No Edema
Skin: Warm and Dry
Neuro: Awake
Psych: Apparent Dementia
Data Reviewed
-
Labs: Labs Reviewed by me and Discussed with Physician
[2024-12-22] MEDS: MORPHINE SULFATE 1 MG IV ×2 (16:06→19:53)
[2024-12-22 16:30] VITALS: BP 103/63
[2024-12-22] MEDS: ATIVAN 0.5 MG IV (19:53)
[2024-12-22 19:55] VITALS: BP 88/48
[2024-12-23] MEDS: ATIVAN 2 MG IV (01:32)
[2024-12-23] MEDS: ROBINUL 0.2 MG IV ×2 (01:32→19:48)
[2024-12-23] MEDS: MORPHINE SULFATE 1 MG IV ×5 (01:33→19:48)
[2024-12-23 08:00] VITALS: BP 117/64
[2024-12-23] MEDS: ATIVAN 0.5 MG IV ×2 (11:31→19:48)
--- NOTE | 2024-12-23 11:38 | HOSPNOTE ---
Patient was starting to get restless and was medicated with ativan IV and morphine with good relief. No family at bedside. Encouraged the floor RN to please continue with the medications to avoid severe agitation. Patient will be seen daily by the
hospice nurse. Patient continues to be inpatient appropriate for management of agitation requiring IV administration.
--- NOTE | 2024-12-23 12:15 | W.PN.HOSP.TC ---
Addendum entered and electronically signed by Akiko Grimes MD 12/23/24 17:27:
I saw and evaluated the patient independently. I reviewed the resident�s note and agree with findings and plan as documented by Dr. Pedro.
GENERAL: cachectic, frail, elderly male in no apparent distress
HEENT: NC/AT--O2 [address]
HEART: regular rate and rhythm, +S1, +S2
LUNGS : coarse breath sounds bilaterally
ABDOM: soft, nontender, nondistended, + bowel sounds
EXT: no cyanosis, clubbing, or edema
NEUROLOGIC: grossly intact
Acute hypoxic respiratory insufficiency due to influenza A infection with possible COPD exacerbation--cont symptom management for GIP hospice--ativan and morphine as needed
Severe Dementia with agitation
Permanent Atrial Fibrillation
Unspecified anemia
Hypercholesterolemia
GERD
DVT proph
code status --DNR
Original Note:
Today's Communication/Plan
-
- f/u hospice
- Continue symptomatic treatment for comfort care
Assessment / Plan
Assessment / Plan
Patient is being transitioned to hospice care and only hospice appropriate meds are being continued.
Acute hypoxic respiratory insufficiency due to influenza A infection
COPD exacerbation:
- Patient is on room air saturating 96%
- continue DuoNeb every 6 hours for symptomatic relief
- Dexamethasone and tamiflu discontinued
Constipation:
- continue dulcolax as needed
Severe Dementia with agitation:
- patient transitioned to inpatient hospice care and hospice is following
- Continue Ativan for agitation, Haldol for seizure prophylaxes, glycopyrrolate for secretions, zofran for nausea
- Patient started on moprhine PRN
Permanent Atrial Fibrillation:
- not on Eliquis as per previous notes
- discontinue on metoprolol succinate
- Rate controlled and stable
Unspecified anemia:
- labs were discontinued
- Iron studies on last admission 11/29 were 28, TIBC normal, ferritin normal, B12 normal
- discontinue patient on VETERINARY ASSISTANT TECHNICIAN ferrous sulfate
Hypercholesterolemia:
- diccontinued atorvastatin
GERD:
- discontinued on pantoprazole 40 mg IV bid
discontinue lovenox 30 mg for DVT prophlyaxies
Anticipated Discharge: 24 - 48 hours
Subjective/Interval History
-
Date of Service: December 23, 2024
Patient is unable to give a history due to severe dementia. He does look more calm and comfortable today on visual inspection.
Objective Data
-
Vital Signs:
Vital Signs
Temp Pulse Resp BP Pulse Ox
97.7 F 68 14 117/64 97
12/23/24 08:00 12/23/24 08:00 12/23/24 08:00 12/23/24 08:00 12/23/24 08:00
Review of Systems
-
Unable to obtain full review of systems at this time due to: Dementia
Physical Exam
-
General: Respiratory Distress (mild) and Appears Chronically Ill
Respiratory: Clear to Auscultation
Cardiac: Irregular Rhythm
GI: Soft, Nontender and Nondistended
Musculoskeletal: No Clubbing, No Cyanosis and No Edema
Skin: Warm and Dry
Neuro: Awake
Psych: Apparent Dementia
Data Reviewed
-
Labs: Labs Reviewed by me and Discussed with Physician
--- NOTE | 2024-12-23 15:17 | CM ---
Patient seen at bedside with physicians. Patient family not present. CM will continue to follow for discharge planning needs.
Plan; hospice, GIP
[2024-12-23] MEDS: NSS (PRESERVATIVE FREE) 0.125 ML IV (19:48)
[2024-12-24] MEDS: MORPHINE SULFATE 1 MG IV ×8 (01:17→22:36)
--- NOTE | 2024-12-24 03:20 | DOWNTIME ---
There was a [employer] Client Taxation Inspector Downtime on 12/24/2024 from 0200 to 12/25/2023 at 0318 .
[2024-12-24] MEDS: ATIVAN 0.5 MG IV ×2 (03:53→20:10)
[2024-12-24] MEDS: ROBINUL 0.2 MG IV (03:54)
[2024-12-24] MEDS: NSS (PRESERVATIVE FREE) 0.125 ML IV (03:54)
--- NOTE | 2024-12-24 06:45 | W.PN.HOSP.TC ---
Addendum entered and electronically signed by Akiko Grimes MD 12/24/24 13:54:
I saw and evaluated the patient independently. I reviewed the resident�s note and agree with findings and plan as documented by Dr. Pedro.
GENERAL: cachectic, frail, elderly male in no apparent distress--unresponsive
HEENT: NC/AT
HEART: regular rate and rhythm, +S1, +S2
LUNGS : coarse breath sounds bilaterally
ABDOM: soft, nontender, nondistended, + bowel sounds
EXT: no cyanosis, clubbing, or edema
NEUROLOGIC: grossly intact
Events of last evening noted. Family wanted to 'wake patient up'. This did not go well. Family is now in agreement that patient should continue to be medicated for terminal agitation. Floor nurse and hospice nurse aware.
Acute hypoxic respiratory insufficiency due to influenza A infection with possible COPD exacerbation--cont symptom management for GIP hospice--ativan and morphine as needed
Severe Dementia with agitation
Permanent Atrial Fibrillation
Unspecified anemia
Hypercholesterolemia
GERD
DVT proph
code status --DNR
Original Note:
Today's Communication/Plan
-
- f/u hospice
- Continue symptomatic treatment for comfort care
Assessment / Plan
Assessment / Plan
Patient is being transitioned to hospice care and only hospice appropriate meds are being continued.
Acute hypoxic respiratory insufficiency due to influenza A infection
COPD exacerbation:
- Patient is on room air saturating 96%
- discontinue DuoNeb
- Dexamethasone and Tamiflu discontinued
Constipation:
- continue Dulcolax as needed
Severe Dementia with agitation:
- patient transitioned to inpatient hospice care and hospice is following
- Continue Ativan for agitation, Haldol for seizure prophylaxes, glycopyrrolate for secretions, zofran for nausea
- Patient started on Morphine PRN
Permanent Atrial Fibrillation:
- not on Eliquis as per previous notes
- discontinue on metoprolol succinate
- Rate controlled and stable
Unspecified anemia:
- labs were discontinued
- Iron studies on last admission 11/29 were 28, TIBC normal, ferritin normal, B12 normal
- discontinue patient on CLEARING TUB WORKER ferrous sulfate
Hypercholesterolemia:
- discontinued atorvastatin
GERD:
- discontinued on pantoprazole 40 mg IV bid
discontinue Lovenox 30 mg for DVT prophylaxes
Anticipated Discharge: 24 - 48 hours
Subjective/Interval History
-
Date of Service: December 24, 2024
Patient is unable to give a history due to severe dementia. He does look more calm and comfortable today on visual inspection.
Objective Data
-
Vital Signs:
Vital Signs
Temp Pulse Resp BP Pulse Ox
99.0 F 68 14 117/64 94
12/23/24 19:32 12/23/24 08:00 12/23/24 19:32 12/23/24 08:00 12/23/24 19:32
Review of Systems
-
Unable to obtain full review of systems at this time due to: Dementia
Physical Exam
-
General: Respiratory Distress (mild) and Appears Chronically Ill
Respiratory: Clear to Auscultation
Cardiac: Irregular Rhythm
GI: Soft, Nontender and Nondistended
Musculoskeletal: No Clubbing, No Cyanosis and No Edema
Skin: Warm and Dry
Neuro: Awake
Psych: Apparent Dementia
Data Reviewed
-
Labs: Labs Reviewed by me and Discussed with Physician
[2024-12-24 07:40] VITALS: BP 120/66
--- NOTE | 2024-12-24 09:21 | HOSPNOTE ---
Drying Room Supervisor visited with 84 year old patient to conduct Initial FLEXIBLE SHAFT WINDER Assessment. Patient admitted onto Hospice Services and [facility] Level Of Care with the Primary Diagnosis of Acute Respiratory Failure with Hypoxia. Nurse reported patient
resting comfortably and no concerns. FLEXIBLE SHAFT WINDER greeted patient while entering the room. Patient lying in bed and appeared to be resting comfortably. No was present at patient's bedside. IV Nurse came in to assess patient IV, no concerns. FLEXIBLE SHAFT WINDER called
patient's name again with no response. FLEXIBLE SHAFT WINDER contacted patient's Daughter Dannielle to introduce herself and explain the Wood Car Builder role as it relates to the Hospice Team. Dannielle reported the family is doing okay. Dannielle reported patient employed
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 Dannielle reported patient's spouse Mervat and her are the POA and Dannielle is the Primary Caregiver. Patient has 2 children, 1 daughter Dannielle and 1 son Emile, 11 grandchildren, 2
great grandchildren, and 3rd great grandchild on the way. Patient loved politics and animals. Patient is a Catholic, however, no jain affiliations. Patient wishes are to be Cremated. FLEXIBLE SHAFT WINDER emailed a Home and Crematory List to Dannielle and
Emile. Family appears to be supportive and coping appropriately. Patient did not show signs of pain and/or distressed during this visit. Emotional Support Provided.
Patient meets [facility] criteria for SN Assessments and management of agitation requiring IV administration that could not be managed at home and/or in an Outpatient setting. Discharge planning continues.
FLEXIBLE SHAFT WINDER will continue to visit once a week while on [facility] Level of care to provide supportive services and monitor for additional services.
--- NOTE | 2024-12-24 12:26 | HOSPNOTE ---
Spoke at length with daughter this am and she was apologetic about yesterday and not allowing the patient to be medicated and they were able to see just how agitated the patient got and is in complete agreement with medications and continuing
hospice services. Patient continues to be inpatient appropriate for IV ativan and IV morphine administration. Please continue to medicate prior to any care or repositioning. Spoke with floor RN and updated. Patient will be seen daily by hospice
nurse.
--- NOTE | 2024-12-24 13:57 | CM ---
Patient seen at bedside, patient under GIP hospice. CM will continue to follow for discharge planning needs.
Plan;hospice
[2024-12-24] MEDS: ATIVAN 2 MG IV (15:13)
--- NOTE | 2024-12-24 19:28 | PTCARENOTE ---
Received patient from previous shift presenting calm and comfortable. Family came in to visit around 1400. Daughter at bedside touching and adjusting patient. Daughter asked about vital signs this morning and was made aware that POX was 84%, but
that is to be expected. The daughter asked for an updated POX which showed 82%. The daughter then called her brother stating that he was going to have people visit. When son and other family members came in to visit they requested ' something for
restlessness and facial grimacing' for the patient PRN Ativan and Morphine administered. The daughter asked for a full set of vital signs from the [facility] at this time and POX 91%, the daughter stated 'how do you make sense of that'. This nurse stated
' you can't really go off of vital signs, and we only take a full set at the beginning of each shift when they are on hospice' the daughter stated ' I was told to let you guys know I could get whatever I needed, what if I need vital signs' the
daughter was then reminded that once on hospice vitals are taken once a shift. Once the daughter and other family members left the patient's came in to visit, the son was also still present in the room. The stated that she had some
questions, upon entering patient's room, patient appeared calm and comfortable. This nurse went up to the and asked ' did you have any questions', the asked to move towards the doorway and away from the patient. The was inquiring
about the pulse ox numbers from this morning and what that means. The was told my this nurse that 'low pulse ox numbers are to be expected with someone who is on hospice, but that everyone is different'. The then inquired about how much
time the patient may have left and this nurse stated that a time frame could not be given and that everyone is different. The son then began to appear agitated and said ' she is just asking you a simple question'. He then faced his mother and said '
his pulse ox was 84% it means he is going to soon mom'. The son looked over at this nurse and said ' see why can't you just tell her that'. This nurse stated that going off of vital signs does not give a time frame and I can't give out a time
frame because I do not know. The son then said ' you are a nurse aren't you, how do you not know'. The son then began saying that this nurse is ' rude' and that he will be reporting this nurse, he then stated ' Mimi you messed up, mom i'll be right
back'. The son walked off the unit, code purple called, remained in room. Security on floor and given description of son. Transportation Analyst made aware of situation. Hospice also notified of situation.
[2024-12-24 19:31] VITALS: BP 132/61
--- NOTE | 2024-12-24 19:43 | W.PN.UPDATE ---
Update Note
Progress Note Update
Viral sepsis present on arrival:
- patient arrived with lethargy and overnight systolic blood pressure dropped to 80's, tachycardic, hypoxemic requiring 3 L of oxygen.
- Physical exam noted by security operations engineer showed bilateral wheezing on examination
- Nasal swab resulted in Influenza A positive on 12/17/24
- Patient started on Tamiflu, Iv fluids, DuoNeb every 6 hours, and dexamethasone
--- NOTE | 2024-12-24 19:52 | W.PN.UPDATE ---
Update Note
Progress Note Update
Acute hypoxemic respiratory failure due to influenza A infection
COPD exacerbation:
- Tested postive for influenza A after bilateral wheezing on yesterdays exam and unstable vitals
- Increased dosage of Tamiflu from 30 to 75 mg twice day for 5 days
- 94% o2 sat on 5 l NC, continue
- Started on dexamethasone and Duonebs every 6 hours
- Blood cultures negative
[2024-12-24] MEDS: NSS (PRESERVATIVE FREE) 0.25 ML IV (20:10)
[2024-12-24] MEDS: MORPHINE 100 IV (23:02)
[2024-12-25] MEDS: MORPHINE SULFATE 2 MG IV ×4 (00:42→04:09)
[2024-12-25] MEDS: ATIVAN 0.5 MG IV (04:10)
[2024-12-25] MEDS: NSS (PRESERVATIVE FREE) 0.25 ML IV (04:10)
--- NOTE | 2024-12-25 06:52 | W.PN.DEATH ---
Pronouncement of
-
Called to see patient to pronounce.
No spontaneous heart tones or respirations noted.
Patient not responsive to verbal stimuli.
Patient is pronounced .
Time of : 06:20
Date of : 12/25/24
Family Notified: Yes
--- NOTE | 2024-12-25 07:12 | PTCARENOTE ---
[facility] [employer] notified and d/t patient's age, pt does not meed criteria for any donation per [facility].
--- NOTE | 2024-12-25 10:22 | CM ---
Patient this am. Hospice following and supporting patient family.
Plan; .
--- NOTE | 2024-12-25 19:16 | W.DCSUMMARY ---
Addendum entered and electronically signed by Akiko Grimes MD 12/26/24 07:01:
Read, reviewed, and agree. See same day progress note for additional details. Time spent coordinating care, DC planning, review of DC plan of care with resident, transition of care, review of records in EMR, med rec, consults, notes, d/w
consultants, nursing, family, and CM = 15 minutes
Original Note:
Discharge Summary
Discharge Data
Date of Admission: 12/22/24
Date of Discharge: 12/25/24
-
Pending Results: No
Hospital Course
Discharging Physician : Dr. Akiko Grimes and Dr. Ehsan Pedro
Disposition : Hospice ()
Primary care physician : unknown
Principal Discharge diagnosis : Acute hypoxic respiratory failure due to influenza A infection with possible COPD exacerbation,
Chronic Discharge diagnosis : Severe dementia with agitation, permanent atrial fibrillation, unspecified anemia, hypercholesterolemia, GERD
Hospital Course : Patient is a 84-year-old male with past medical history significant for dementia, hypertension, hypercholesterolemia, proximal atrial fibrillation, CAD, carotid artery stenosis, peripheral vascular disease, kidney Ca s/p R
nephrectomy, CVA that presented to ED from [facility] for evaluation of increased lethargy. Patient is poor historian with severe dementia and due to clinical deterioration was then transitioned to hospice on 12/22/2024.
Patient was discontinued on all medications when he was transitioned to hospice on 12/22/24. He was only on glycopyrrolate for secretions, Zofran for nausea, Ativan for restlessness/agitation, Haldol for agitation in severe dementia, morphine and
Tylenol for pain, and Maalox/Dulcolax for medication induced constipation. On 12/25/2024 at 6:20 AM, the patient was pronounced after no spontaneous heart tones or respirations, not responsive to verbal stimuli.
Important imaging findings :
---
Procedure findings :
---
Discharge Plan
-
Patient Disposition:
Date/Time
Date/Time: 12/25/24 06:20
Discharge Date and Time
Discharge Date/Time: 12/25/24 06:20
Print Language: DOMINICAN
--- NOTE | 2024-12-28 15:55 | W.PN.UPDATE ---
Update Note
Progress Note Update
Viral sepsis present on arrival:
- patient arrived with lethargy and overnight systolic blood pressure dropped to 80's, tachycardic, hypoxemic requiring 3 L of oxygen.
- Physical exam noted by web page designer showed bilateral wheezing on examination
- Nasal swab resulted in Influenza A positive on 12/17/24
- Patient started on Tamiflu, Iv fluids, DuoNeb every 6 hours, and dexamethasone
== END 2024-12-25 06:20 | disposition expired | DRG 951 ==
LOC: 2 NORTH 14:18
PROVIDERS: ADMITTING PHYSICIAN Internal Medicine
DX: Z51.5 Encounter for palliative care (principal); F03.C11 Unspecified dementia, severe, with agitation; J44.1 Chronic obstructive pulmonary disease with (acute) exacerbation; I48.21 Permanent atrial fibrillation; R64 Cachexia; J10.1 Influenza due to other identified influenza virus with other respiratory manifestations; R09.02 Hypoxemia; R06.89 Other abnormalities of breathing; D64.9 Anemia, unspecified; K21.9 Gastro-esophageal reflux disease without esophagitis; E78.00 Pure hypercholesterolemia, unspecified; Z66 Do not resuscitate